=== PATIENT | female | born 1955 | race Caucasian/White ===

== ENCOUNTER → 2017-10-05 11:04 | Outpatient (CLI) | payer BC, SELFPAY ==
--- NOTE | 2017-10-05 11:08 | VDLE_ITS ---
Reason For Study: LEG PAIN RIGHT LEFT GSV is normal. CFV is compressible, spontaneous, phasic, CFV is compressible, spontaneous, phasic, competent, and demonstrates normal competent and demonstrates normal augmentation. augmentation. FV is compressible, spontaneous, phasic, competent and demonstrates normal augmentation. POP V is compressible, spontaneous, phasic, competent and demonstrates normal augmentation. T/P Trunk is compressible. PTV is compressible. RT PerV is compressible. Hypoechoic structure noted rt medial pop space extending to posterior prox calf. Measures 2.5 x 3.2 cm in transverse view. Non-vascular. Procedure Exam performed in department. A preliminary report was called and/or faxed to Dr. Castillo. Interpretation Summary Deep veins of the right lower extremity are patent and compressible segmentally. There is no evidence of right lower extremity deep vein thrombosis. Valvular competence appears intact within the proximal deep venous system on the right . The right greater saphenous vein appears patent and compressible segmentally. A non-vascular, hypoechoic structure is noted in the right medial popliteal space, extending to the proximal calf, and measuring 2.5 cm x 3.2 cm. This probably represents a popliteal cyst. Clinical correlation is advised. Ordering Physician: Yara Castillo Referring Physician: Yara Castillo Performed By: Tyra Avalos RVT
== END ==
PROVIDERS: Family Provider Internal Medicine; PCP Internal Medicine; Visit Provider Internal Medicine
DX: M79.661 Pain in right lower leg (principal)
CPT/HCPCS: 93971

== ENCOUNTER → 2017-11-20 15:42 | Outpatient (CLI) | payer BC, SELFPAY ==
--- NOTE | 2017-11-19 09:00 | CYST_PTH ---
PATIENT: SEKOU DE LA GARZA LOC: [facility] U#:[id number] AGE/SX: 69/F ROOM: RE11/20/[address]: Florian Casillas MD : 1955 BED: DIS: SPEC #: [id number] RECD: 11/20/17 15:26 STATUS: HAMIDA DOMINIK #: [id number] SUSAN: 11/19/17 09:[address]: Florian Casillas DEPT: SURGICAL PATHOLOGY RECD BY: Jacob Jack ENTERED: 11/23/17 07:49 SP TYPE: Cyst OTHR DR: Dr. Yara Castillo MD [facility] Tissues: CYST Procedures: Surgery Specimen Level III HEADER OPERATION: Right knee arthroscopy with partial medial meniscectomy and open excision popliteal cyst PRE-OP DIAGNOSIS: Right knee posterior horn tear, medial meniscus, popliteal cyst TISSUE SUBMITTED: Cyst right knee MICROSCOPIC DIAGNOSIS Cyst, right knee: Benign cyst consistent with Salc[place] cyst with reactive changes. SJ:elia 11/24/17 MICROSCOPIC DESCRIPTION Slides are reviewed. GROSS DESCRIPTION Received is one container labeled with the patient's name and not further designated. The specimen consists of a previously opened cyst with attached adipose tissue measuring 6 x 4 x 2.5 cm. The cyst wall is smooth and measures up to 0.5 cm in thickness. Indirect Sales Exec sections are submitted in two cassettes. / GARRISON:elia 11/23/17 TC:5 CPT: 10175
== END ==
PROVIDERS: Visit Provider Orthopaedic Surgery
DX: L72.9 Follicular cyst of the skin and subcutaneous tissue, unspecified (principal)
CPT/HCPCS: 88304

== ENCOUNTER 2018-07-08 18:30 | Outpatient (RCR) | payer BC, SELFPAY ==
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
--- NOTE | 2018-07-08 19:01 | HP.PTDCSUM ---
HP - PT D/C Summary It has been my pleasure to treat SEKOU DE LA GARZA under orders from Yara Castillo MD, for the diagnosis of R flank pain for a total of 6 visit(s). Discharge Date: 07/08/18 Please see the following information for a summary of their discharge status. - Subjective Subjective: Doing better, no burning. Still achy 2/10 - Pain R flank/LBP Pain Intensity (Out of 10): 2 - Overall Improvement % Improvement: 50 - Objective Objective/Function: dECREAESING TENDERNESS T/S - Goals Goal 1:: abolish burning pain in R T/S Goal Progress: Progressing Goal 2:: I approp strethces for LB and strengthening for core adn R LE Goal Progress: Goal Met Goal 3:: Pt feel 75% improved in overall conditiona dn sleep without waking at night. Goal Progress: Progressing - Plan Plan: Pt out of town for 3 months adn will continue on her own. instruct given. - D/C Information Discharge Comments: Pt leaving town for 3 months and will continue with ex/[facility] as able I. If there are questions or concerns regarding this patient's physical therapy, please feel free to call me at [phone]. Thank you for the referral of this patient. Sincerely, Michele Barajas, DPT, OCS, CSCS
--- OUTSIDE RECORDS SUMMARY | 2018-08-29 16:27 | XMS RPT_ITS | Continuity of Care Document ---
:1955 Author Organization [facility] Address [address] [place] [address] 2 [place] [address] Phone Care Team Providers Name Role Phone Yara Shi MD Unavailable Sonja EVANS , Florian Quintero Unavailable JORDAN Webster Unavailable Unavailable Unavailable Unavailable Problems Name Dates Details Annual Medicare Physical WITH abnormal findings (Renamed from Encounter for general adult medical examination with abnormal findings) (Z00.01, V70.0) Comments: 38-30-20zeviw. colonoscopy 1-16 due every 5 years with father mammo/BD 02-05-16 likes to do every other year. TAHBSO talk about shingles but has outbreaks so uses prn acyclovir. told consider new inacti vated shingles vaccine. gets derm screening [place] with melanoma history. Status: Active Arthralgia (M25.50, 719.40) Comments: since 16 had fever and mainly large joints not fingers. Status: Active BMI 26.0-26.9,adult (Z68.26, V85.22) Status: Active BMI 28.0-28.9,adult (Z68.28, V85.24) Status: Active BMI 31.0-31.9,adult (Z68.31, V85.31) Status: Active Chest pain, atypical (R07.89, 786.59) Status: Active Current nonsmoker (Renamed from Current non-smoker) (Z78.9, V49.89) Status: Active Family history of malignant neoplasm of gastrointestinal tract (Z80.0, V16.0) Comments: colon cancer Status: Active Fatigue (R53.83, 780.79) Status: Active Frequent infections (Z86.19, V12.00) Status: Active GERD (gastroesophageal reflux disease) (K21.9, 530.81) Comments: EGD 2003, 5- 12, not have anymore with weight loss. take nexium stable. tried zantac and not work as well. Status: Active Hematuria (R31.9, 599.70) Status: Active Herpes zoster without complication (B02.9, 053.9) Comments: right buttocks ? also why pain burning in right flank Status: Active History of melanoma (Z85.820, V10.82) Comments: see derm in [facility]. must get mammo with relation ship Status: Active History of shingles (Z86.19, V12.09) Comments: she gets recureent shingles right lower left lumbar area. 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 really want to see by asking endocrine do we need to keep her suppressed. she is noticing change in hair and nail Status: Active Low back pain without sciatica, unspecified back pain laterality (724.2) Comments: right flank. posistional, consider neuropathic. use aleve2 bid, heat help continue back exercises, massotherapy. not better xray and consider Pt Status: Active Muscle spasm (M62.838, 728.85) Comments: seeing PT and chiropactor. PT rightnow wokringonthis Status: Active Need for hepatitis B screening test (Z11.59, V73.89) Status: Active Night sweat (R61, 780.8) Comments: takig 0.3 mg every night help this Status: Active Obesity (E66.9, 278.00) Comments: after thryiod surgery gain. gaol 155 lost some with stress. need to add back exercise. Status: Active Osteoarthritis of both knees, unspecified osteoarthritis type (M17.0, 715.96) Comments: has had Euflexxa in the past and helped, did steroid injection 01-09-17 and helped but not take the pain away entirely, do both knees. Status: Active Osteoarthritis of knees, bilateral (M17.0, 715.96) Comments: use with turmeric and help has side effects to glucosamine Status: Active Pain of right calf (M79.661, 729.5) Comments: with travel check doppler no DVT. will treat as OA and salcido's cyst and if not better the may have to repeat doppler in case calf and assure not propagate. Status: Active Postmenopausal (Renamed from Postmenopausal status) (Z78.0, V49.81) Status: Active Postmenopausal state (Z78.0, V49.81) Comments: sometimes will do premarin few times a week only. Status: Active Pregnancies () Comments: 0 Status: Active Sacral pain (M53.3, 724.6) Comments: ? sacral bruise vs pilonidal cyst awaiting xray Status: Active Stress reaction (F43.0, 308.9) Comments: doing better with new board and new college educated assistant2 [employer], [facility] signed to take over hospital in [facility]. Status: Active Unspecified osteoarthritis, unspecified site (M19.90, 715.90) Comments: left knee will get MRI in [facility] consider arthoscopy cleaning. Status: Active Vitamin D deficiency, unspecified (E55.9, 268.9) Comments: good Status: Active Medications Name Dates Details Ambien 5 MG Oral Tablet 1 (one) Tablet at night insomnia prn for 0 days Quantity: 30 {Tablet} Refills: 2 Ordered:21-Dec-2017 Jonathan EVANS, Yara Barajas MD Start : 21-Dec-2017 Active Comments:[id number] [place] [facility] [place] [facility] Active NexIUM 40 MG Oral Capsule Delayed Release 1 (one) Capsule in am for 0 days Quantity: 30 {Capsule} Refills: 6 Ordered:03-Feb-2017 Jonathan EVANS, Yara Barajas MD Start : 03-Feb-2017 Active Premarin 0.625 MG Oral Tablet 1 (one) Tablet qd for 0 days Quantity: 60 {Tablet} Refills: 3 Ordered:15-Jun-2018 Yara Shi MD, MD, Dana M Start : 15-Jun-2018 Active Dispense as Written Comments:VONSixty Synthroid 150 MCG Oral Tablet 1 (one) Tablet qd for 0 days Quantity: 102 {Tablet} Refills: 3 Ordered:15-Jun-2018 Yara Shi MD, MD, Dana M Start : 15-Jun-2018 Active Dispense as Written Comments:VON traumeric Active vitamin D3, 1 qd Active Zanaflex 4 MG Oral Capsule 1 (one) Capsule every 8 hours prn for 0 days Quantity: 30 {Capsule} Refills: 0 Ordered:15-Jun-2018 Yara Shi MD, MD, Dana M Start : 15-Jun-2018 Active AMOXICILLIN, 500MG (Oral Capsule) 1 (one) Capsule tid for 7 days Quantity: 21 {Capsule} Refills: 0 Ordered:04-Apr-2015 Serenity Ross CNP Start : 04-Apr-2015 End : 11-Apr-2015 Inactive ATIVAN, 0.5MG (Oral Tablet) Tablet TID/PRN for 0 days Quantity: 30 {Tablet} Refills: 0 Ordered:20-Jun-2010 JORDAN Webster Start : 26-Feb-2009 End : 20-Jun-2010 Inactive AUGMENTIN, 875-125MG (Oral Tablet) 1 Tablet bid for 14 days Quantity: 28 {Tablet} Refills: 0 Ordered:27-May-2011 Serenity Ross CNP Start : 27-May-2011 End : 10-Jun-2011 Inactive CALCIUM 500/VITAMIN D, 187-068PU-HSBN (Oral Tablet) 1 (one) Tablet daily for 30 days Quantity: 30 {Tablet} Refills: 0 Ordered:04-Jul-2015 Serenity Ross CNP Start : 04-Apr-2015 End : 04-May-2015 Inactive DOXYCYCLINE HYCLATE, 100MG (Oral Capsule) 1 Capsule bid for 21 days Quantity: 42 {Capsule} Refills: 0 Ordered:14-Jan-2013 Yara Shi MD, MD, Dana M Start : 14-Jan-2013 End : 04-Feb-2013 Inactive FAMCICLOVIR, 500MG (Oral Tablet) 1 Tablet tid for 7 days when have rash for 0 days Quantity: 21 {Tablet} Refills: 2 Ordered:14-Jan-2013 JORDAN Webster Start : 07-Jan-2013 End : 14-Jan-2013 Inactive MULTIVITAMIN ADULTS 50+ (Oral Tablet) 1 (one) Tablet daily for 30 days Quantity: 30 {Tablet} Refills: 0 Ordered:04-Jul-2015 Serenity Ross CNP Start : 04-Apr-2015 End : 04-May-2015 Inactive RX ESSENTIALS HEARTBURN/ACID R (Oral Tablet) 1 qd for 0 days Refills: 0 Ordered:26-Feb-2009 JORDAN Webster End : 26-Feb-2009 Inactive Tylenol with Codeine #3 300-30 MG Oral Tablet 1 (one) Tablet every 8 hours prn for 0 days Quantity: 20 {Tablet} Refills: 0 Ordered:08-Jul-2016 JORDAN Webster Start : 27-May-2016 End : 08-Jul-2016 Inactive Comments:twenty Valtrex 1 GM Oral Tablet 1 (one) Tablet tid for 0 days Quantity: 21 {Tablet} Refills: 0 Ordered:08-Jul-2016 JORDAN Webster Start : 27-May-2016 End : 08-Jul-2016 Inactive VALTREX, 500MG (Oral Tablet) 1 Tablet 2 bid for 3 days for 3 days Refills: 0 Ordered:20-Jun-2010 Jonathan EVANS, Yara Blackmon MD, Yara Arana Start : 20-Jun-2010 End : 23-Jun-2010 Inactive ZANTAC 150 MAXIMUM STRENGTH, 150MG (Oral Tablet) (150 MG) Inactive ZANTAC 75, 75MG (Oral Tablet) 1 qd for 0 days Refills: 0 Ordered:02-Mar-2012 Shanna Welsh LPN End : 02-Mar-2012 Inactive ZANTAC 75, 75MG (Oral Tablet) 1 bid (75 MG) Inactive Zithromax Z-River 250 MG Oral Tablet uad Tablet qd until gone for 0 days Quantity: 1 {Package} Refills: 0 Ordered:15-Jun-2018 JORDAN Webster Start : 23-Oct-2017 End : 15-Jun-2018 Inactive ERGOCALCIFEROL, 56373OJQF (Oral Capsule) 1 Capsule weekly for 0 days Quantity: 24 {Capsule} Refills: 3 Ordered:04-Apr-2015 Elvira Epperson LPN Start : 25-Dec-2014 End : 04-Apr-2015 Discontinued ESTRATEST H.S., 0.625-1.25MG (Oral Tablet) Tablet thu and thursday for 0 days Quantity: 30 {Tablet} Refills: 3 Ordered:02-Jul-2009 Mast Fadia BLACK Start : 02-Jul-2009 End : 02-Jul-2009 Discontinued FLEXERIL, 10MG (Oral Tablet) 1 Tablet tid prn for 0 days Quantity: 20 {Tablet} Refills: 0 Ordered:20-Jun-2010 Yara Shi MD, MD, Dana M Start : 20-Jun-2010 End : 05-Jul-2012 Discontinued LIDODERM, 5% (External Patch) 1 Patch 12 hours on adnd 12 hours off for 0 days Quantity: 30 {Patch} Refills: 1 Ordered:02-Mar-2012 Yara Shi MD, MD, Dana M Start : 02-Mar-2012 End : 05-Jul-2012 Discontinued PROVENTIL HFA, 108 (90 Base)MCG/ACT (Inhalation Aerosol Solution) 2 (two) Aerosol Soln tid for 0 days Quantity: 1 {Aerosol_Soln} Refills: 0 Ordered:27-May-2011 Yara Shi MD, MD, Dana M Start : 27-May-2011 End : 05-Jul-2012 Discontinued TRIPLE FLEX, [id number] (Oral Tablet) 2 qd for 0 days Refills: 0 Ordered:05-Jul-2012 Yara Shi MD, MD, Dana M End : 05-Jul-2012 Discontinued Allergies and Adverse Reactions Name Dates Details Betadine *ANTISEPTICS & DISINFECTANTS* (Allergy) Status: Active nexium aches (Allergy) Status: Inactive Past Medical History Name Dates Details Abnormal finding of blood chemistry, unspecified (R79.9, 790.6) Comments: little slight 36 on 32 alt. ? ibu Status: Resolved as of 18-May-2017 Acute bronchitis, bacterial (J20.8, 466.0) Comments: better with zpak, steriods and inhalers. still cough and on tail end. will callin week if not all way better Status: Inactive as of 08-Jul-2016 Acute pharyngitis (J02.9, 462) Status: Inactive as of 14-Jan-2013 ACUTE PHARYNGITIS (462.) (462) Status: Inactive as of 14-Jan-2013 Adenoma (D36.9, 229.9) Comments: hercule cell with removal of adenoma and thyroid Status: Inactive as of 03-Mar-2016 Salcido's cyst, right (M71.21, 727.51) Comments: removed Status: Resolved as of 15-Jun-2018 Breast nodule (N63.0, 793.89) Comments: with history of melanoma and on ERT at risk for breast ca.us and mammo good and recheck nhjb3sbdeov normal. Status: Inactive as of 23-Jun-2017 Bronchitis (J40, 490) Status: Resolved as of 18-May-2017 Chest pain at rest (R07.9, 786.50) Status: Inactive as of 08-Jul-2016 Coccygeal pain, chronic (M53.3, 724.79) Comments: better than was with PT sit alot with work and meetings. Status: Resolved as of 18-May-2017 Cough (R05, 786.2) Status: Inactive as of 14-Jan-2013 Dysfunctional grieving (F43.21, 309.0) Comments: lost 4 significant people in 24 months. sleep okay and able to do ADLs Status: Inactive as of 14-Jan-2013 Encounter for screening mammogram for breast cancer (Renamed from Encounter for screening mammogram for malignant neoplasm of breast) (Z12.31, V76.12) Status: Inactive as of 03-Mar-2016 Family history of other endocrine and metabolic diseases (V18.1) Comments: thyroid cancer Status: Inactive as of 03-Mar-2016 Febrile illness, acute (R50.9, 780.60) Comments: N/V and joint pain. ?Chikungunya ? GE virus. no rash like yellow fever getting better check serology. Status: Inactive as of 25-Dec-2014 Flank pain (R10.9, 789.09) Comments: urine good not think stones. she does not have PE signs and symptoms no pleuricy. ? muscular with cough not hear pneumonia. Status: Resolved as of 18-May-2017 Headache disorder (R51, 784.0) Comments: see chiropctor help this on right side. Status: Resolved as of 18-May-2017 HERPES SIMPLEX, UNCOMPLICATED (B00.9, 054.9) Comments: get in leg and use acyclivor prn Status: Inactive as of 03-Mar-2016 Herpes zoster with other nervous system complications (B02.29, 053.19) Comments: has continue pain with stress comes every 6 months. use accyclovir help ask if have once take less often Status: Inactive as of 14-Jan-2013 Impaired fasting glucose (R73.01, 790.21) Status: Inactive as of 02-Dec-2013 Lightheaded (R42, 780.4) Status: Resolved as of 18-May-2017 Muscle ache (729.1) Status: Inactive as of 02-Dec-2013 Need for prophylactic vaccination and inoculation against influenza (Z23, V04.81) Status: Inactive as of 14-Jan-2013 Pain in joint involving ankle and foot, unspecified laterality (M25.579, 719.47) Comments: see a roster clerk as friend, will get MRI as recommend and PT not better or abn mri to suppan Status: Inactive as of 14-Jan-2013 Pain in unspecified hip (M25.559, 719.45) Comments: think bursa to PT not better xray, nsaids help so use as need Status: Inactive as of 14-Jan-2013 Sinusitis, acute (J01.90, 461.9) Comments: Mild Status: Inactive as of 14-Jan-2013 Sore throat (J02.9, 462) Comments: ulcer like virus Status: Resolved as of 18-May-2017 Syncope (R55, 780.2) Comments: pre Status: Resolved as of 18-May-2017 Unspecified Diagnosis Status: Inactive as of 25-Dec-2015 Well woman exam (Z01.419, V72.31) Comments: scope 1-16 due 5 with father. due mammo. told pt about shingle vaccine gets small bouts and not want to get. Status: Inactive as of 01-Feb-2016 Wheezing (R06.2, 786.07) Status: Inactive as of 14-Jan-2013 Procedures Procedure Dates Details appendectomy 2002 Completed cholecystectomy 1982 Completed complete thyriodectomy 2004 Completed Hysterectomy; Abdominal Completed Comments: 2002 DUB. RSO because cyst. then 6months later LSO cyst. melanoma removal leg 2004 Completed Date Value Details 05-Oct-2017 Venous Duplex Lower Extremity Result: Comments: See Note; NOTES: [facility] [address] [place] [address] Venous Duplex US, Unilateral 10/05/17 1108 MR#: [id number] Acct: [id number] Name: SEKOU BROOKS Rep #: [id number] : 1955 62 From: Peewee Davies MD Attending Dr: Yara Shi MD Status: REG CLI Ordering Dr: Yara Shi MD Date: 10/05/17 Location: [facility] Sex: F C Admitted: Reason For Study: LEG PAIN RIGHT LEFT GSV is normal. CFV is compressible, spontaneous, phasic, CFV is compressible, spontaneous, phasic, competent, and demonstrates normal competent and demonstrate s normal augmentation. augmentation. FV is compressible, spontaneous, phasic, competent and demonstrates normal augmentation. POP V is compressible, spontaneous, phasic, competent and demonstrates shantelle l augmentation. T/P Trunk is compressible. PTV is compressible. RT PerV is compressible. Hypoechoic structure noted rt medial pop space extending to posterior prox calf. Measures 2.5 x 3.2 cm in transve rse view. Non-vascular. Procedure Exam performed in department. A preliminary report was called and/or faxed to Dr. Shi. Interpretation Summary Deep veins of the right lower extremity are patent an d compressible segmentally. There is no evidence of right lower extremity deep vein thrombosis. Valvular competence appears intact within the proximal deep venous system on the right . The right greater saphenous vein appears patent and compressible segmentally. A non-vascular, hypoechoic structure is noted in the right medial popliteal space, extending to the proximal calf, and measuring 2.5 cm x 3.2 cm. This probably represents a popliteal cyst. Clinical correlation is advised. Ordering Physici an: Yara Shi Referring Physician: Yara Shi Performed By: Tyra Avalos RVT 10/05/172058 Date Peewee Davies MD CC: Yara Shi MD Date Dictated: 10/05/178 Date Transcribed: 10/05/172058 Cyber Special Agent: Signed 22-May-2017 Breast Limited Unilateral Result: Comments: See Note; NOTES: [facility] Imaging Services [address] [place] [address] Breast Limited Unilateral MR#: [id number] Acct: [id number] Name: SEKOU DE LA GARZA Rep #: [id number] : 1955 F 61 From: Dk Perla MD PCP: Yara Shi MD Status: REG CLI Study: Breast Limited Unilateral Date of Exam: 05/22/17 Exam# [id number] Ordering Dr: Yara Shi MD [facility] BRE[facility] - LEFT REASON FOR EXAM: Female, 61 years old. Palpable lump left breast. TECHNIQUE: Axial and longitudinal images of the LEFT breast were performed with a high resolution ultras ound transducer. COMPARISON: Comparison is made with prior mammogram done earlier today. FINDINGS: LEFT Breast: The upper outer quadrant was examined by ultrasound . No solid or cystic mass lesion is seen. There is homogeneous fibroglandular tissue. US/Breast Limited Unilateral IMPRESSION: Unremarkable sonog raphic examination of the breast. ASSESSMENT CATEGORY: BIRADS Category 1: Negative. A letter regarding these results will be sent to the patient by the facility with in 30 days. Electronically Signed: Dk Perla MD at 15:11 EST Tel [phone], Service support , CC: Yara Shi MD Cyber Special Agent: Signed 22-May-2017 DIAG MAMM W/CAD, BILAT Result: Comments: See Note; NOTES: [facility] Imaging Services [address] [place] [address] DIAG MAMM W/CAD, BILAT MR#: [id number] Acct: [id number] Name: SEKOU DE LA GARZA Rep #: [id number] : 1955 F 61 From: Dk Perla MD PCP: Yara Shi MD Status: REG CLI Study: DIAG MAMM W/CAD, BILAT Date of Exam: 05/22/17 Exam# [id number] Ordering Dr: Yara Shi MD MAMMOGRA PHY - BILATERAL SCREENING REASON FOR EXAM: Female, 61 years old. Routine annual screening examination. PERTINENT HISTORY: Aunt with breast cancer. Palpable abnormality in the upper outer quadrant of t he left breast. TECHNIQUE: Digital bilateral breast svetlana (3D mammographic acquisition) in the CC and MLO projections. 2-D mediolateral oblique (MLO) and craniocaudad (CC) views of both breasts were obt ained. CAD: Full Field Digital Mammography with Computer Added Detection was performed. COMPARISON: Comparison is made with prior study dated February 05, 2016 and January 07, 2013. FINDINGS: Breast Composition: There are scattered areas of fibroglandular density. There are no dominant masses or suspicious calcifications. Stable benign-appearing bilateral axillary ly mph nodes. No other significant abnormalities are identified. There has been no significant change since the prior study. HPBI/DIAG MAMM W/CAD, BILAT IMPRESSION: Stable bilateral screening mammogram. With the patient's history of a palpable abnormality in the left breast, correlation with ultrasound is recommended. ASSESSMENT CATEGORY: BIRADS Category 0: Incomplete. Need additional imaging evaluation. A letter regarding these results will be sent to the patient by the facility within 30 days. Approximate ly 10% of breast cancers are not detected by mammography. A normal mammogram should not delay biopsy of a clinically suspicious abnormality. [id number] Electronically Signed: Dk Perla MD 07/23 at 15:12 EST Tel [phone], Service support , CC: Yara Shi MD Cyber Special Agent: Signed 09-Jan-2017 Knee 4 or More Views Result: Comments: See Note; NOTES: [facility] Imaging Services [address] [place] [address] Knee 4 or More Views MR#: [id number] Acct: [id number] Name: SEKOU DE LA GARZA Rep #: [id number] : 1955 F 61 From: Kenneth Sanchez DO PCP: Yara Shi MD Status: REG CLI Study: Knee 4 or More Views Date of Exam: 01/09/17 Exam# [id number] Ordering Dr: Yara Shi MD STUDY: X-RAY - RI T KNEE REASON FOR EXAM: Female, 61 years old. Medial knee pain, no trauma TECHNIQUE: 4 view(s) of the knee. COMPARISON: None. FINDINGS: There is demineralizatio n of the visualized distal femur. There is demineralization of the tibia and fibula. Normal proximal tibiofibular articulation. There is mild degenerative arthrosis of the medial femorotibial compartme nt. There is mild degenerative arthrosis of the lateral femorotibial compartment. There is mild degenerative arthrosis of the patellofemoral articulation. The soft tissue structures are unremarkable. _ RAD/Knee 4 or More Views IMPRESSION: Mild tricompartmental arthrosis with otherwise no evidence of acute osseous process. Electronically Signed: Kenneth Sanchez DO at 11:15 EDT Tel [phone], Service support , CC: Yara Shi MD Cyber Special Agent: Signed 09-Jan-2017 Knee 4 or More Views Result: Comments: See Note; NOTES: [facility] Imaging Services [address] [place] [address] Knee 4 or More Views MR#: [id number] Acct: [id number] Name: SEKOU DE LA GARZA Rep #: [id number] : 1955 F 61 From: Kenneth Sanchez DO PCP: Yara Shi MD Status: REG CLI Study: Knee 4 or More Views Date of Exam: 01/09/17 Exam# [id number] Ordering Dr: Yara Shi MD STUDY: X-RAY - LE FT KNEE REASON FOR EXAM: Female, 61 years old. Medial knee pain, no trauma. TECHNIQUE: 4 view(s) of the knee. COMPARISON: None. FINDINGS: Normal visualized distal femur. Normal visualized proximal tibia and fibula. Normal proximal tibiofibular articulation. There is moderate degenerative arthrosis of the medial femorotibial compartment with moderate joint space narrowing. There is mild degenerative arthrosis of the lateral femorotibial compartment. There is mild degenerative arthrosis of the patellofemoral articulation. The soft tissue structures are unremar kable. RAD/Knee 4 or More Views IMPRESSION: Tricompartmental arthrosis as above with otherwise no evidence of acute osseous process. Electronica lly Signed: Kenneth Sanchez at 11:17 EDT Tel [phone], Service support , CC: Yara Shi MD Cyber Special Agent: Signed 21-Nov-2016 Brain W/WO Contrast Result: Comments: See Note; NOTES: [facility] Imaging Services [address] [place] [address] Verdana 4d Brain W/WO Contrast MR#: [id number] Acct: [id number] Name: SEKOU DE LA GARZA Rep #: [id number] : 1955 F 61 From: Stanford Tomlinson MD PCP: Yara Shi MD Status: REG CLI Study: Brain W/WO Contrast Date of Exam: 11/21/16 Exam# [id number] Ordering Dr: Yara Shi MD STUDY: M RI BRAIN WITH AND WITHOUT CONTRAST REASON FOR EXAM: Female, 61 years old. Right head and face pain. Numbness of hands and vertigo with loss of balance x12 days TECHNIQUE: Standardized multiplanar fat and water weighted pulse sequences were obtained. 8 ml of Gadavist contrast material was administered intravenously for the contrast portion of the examination. COMPARISON: None. FINDINGS: There is mild cerebral atrophy with widening of the extra- axial spaces and ventricular dilatation. Normal white matter tracts of the supratentorial brain. There is no evidence f or recent intracranial ischemia or other cause of cytotoxic edema on diffusion weighted imaging (DWI). Normal bilateral basal ganglia. Normal thalami. There is no extra-axial fluid accumulation. Shantelle l flow voids within the major intracranial circulation suggesting patency by spin echo criteria. Normal venous enhancement. There is no enhancing intra-axial or extra-axial abnormality. There is an ante rior interhemispheric lipoma versus ossification of the falx. Normal sella turcica, pituitary gland, infundibular stalk, optic chiasm and hypothalamus. Normal tectal plate and pineal gland. Normal mid brain, alicia and medulla. Normal cerebellum. Normal basal cisterns. Normal bilateral temporal bones. Normal bilateral internal auditory canals. No demonstrated orbital abnormality, within the constraint s of a routine brain study. Normal visualized paranasal sinuses. Normal calvarium and skull base. Normal visualized soft tissue structures. Normal visualized upper cervical spine. MRI/Brain W/WO Contrast IMPRESSION: No acute disease Electronically Signed: Stanford Tomlinson MD at 16:39 EDT , Service support , CC: Yara Shi MD Cyber Special Agent: Signed 06-Jun-2016 Chest PA and Lateral Result: Comments: See Note; NOTES: [facility] Imaging Services [address] [place] [address] [place] 4d Chest PA and Lateral MR#: [id number] Acct: [id number] Name: SEKOU DE LA GARZA p #: [id number] : 1955 F 60 From: Jeff Joseph MD PCP: Yara Shi MD Status: REG CLI Study: Chest PA and Lateral Date of Exam: 06/06/16 Exam# [id number] Ordering Dr: Yara Shi MD STUDY: X-RAY CHEST REASON FOR EXAM: Female, 60 years old. Cough for 3 weeks, shingles for one week, pressure right upper chest. TECHNIQUE: PA and lateral views at 3:08 PM. COMPARISON: None. FINDINGS: The lungs are clear and expanded. No pneumothorax. There is no demonstrated pleural abnormality. Normal size heart. Normal mediastinum and alison. Normal visualized pulmon vignesh arteries. Normal visualized aortic arch and descending thoracic aorta. Mild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 /min Comments: Pattern: Regular Respiration Rate 18 /min Comments: Pattern: Unlabored BP Systolic 122 mm[Hg] Comments: Patient Position: Sitting; Cuff Location: Left Arm; Cuff Size: Standard BP Diastolic 78 mm[Hg] Comments: Patient Position: Sitting; Cuff Location: Left Arm; Cuff Size: Standard Weight 188 lb Height 68 in Body Mass Index Calculated 28.59 kg/m2 Body Surface Area Calculated 1.99 m2 :54 Temperature 98.4 f Comments: Method: Oral Pulse 92 /min Comments: Pattern: Regular O2 SAT 98 % Comments: Room air BP Systolic 120 mm[Hg] Comments: Patient Position: Sitting; Cuff Location: Left Arm; Cuff Size: Standard BP Diastolic 72 mm[Hg] Comments: Patient Position: Sitting; Cuff Location: Left Arm; Cuff Size: Standard Weight 191 lb Height 68 in Body Mass Index Calculated 29.04 kg/m2 Body Surface Area Calculated 2 m2 :43 Temperature 98.2 f Comments: Method: Oral Pulse 78 /min Comments: Pattern: Regular Respiration Rate 18 /min Comments: Pattern: Unlabored BP Systolic 124 mm[Hg] Comments: Patient Position: Sitting; Cuff Location: Left Arm; Cuff Size: Standard BP Diastolic 82 mm[Hg] Comments: Patient Position: Sitting; Cuff Location: Left Arm; Cuff Size: Standard Weight 194 lb Height 68 in Body Mass Index Calculated 29.5 kg/m2 Body Surface Area Calculated 2.02 m2 :23 Temperature 98 f Comments: Method: Oral Pulse 90 /min Comments: Pattern: Regular O2 SAT 98 % Comments: Room air BP Systolic 120 mm[Hg] Comments: Patient Position: Sitting; Cuff Location: Left Arm; Cuff Size: Standard BP Diastolic 78 mm[Hg] Comments: Patient Position: Sitting; Cuff Location: Left Arm; Cuff Size: Standard Weight 198.4375 lb Height 68 in Body Mass Index Calculated 30.17 kg/m2 Body Surface Area Calculated 2.04 m2 :50 Temperature 98.3 f Comments: Method: Oral Pulse 64 /min Comments: Pattern: Regular Respiration Rate 16 /min Comments: Pattern: Unlabored BP Systolic 126 mm[Hg] Comments: Patient Position: Sitting; Cuff Location: Left Arm; Cuff Size: Standard BP Diastolic 78 mm[Hg] Comments: Patient Position: Sitting; Cuff Location: Left Arm; Cuff Size: Standard Weight 203.5 lb Height 68 in Body Mass Index Calculated 30.94 kg/m2 Body Surface Area Calculated 2.06 m2 90-Fju-563941:29 Temperature 97.7 f Comments: Method: Oral Pulse 80 /min Comments: Pattern: Regular Respiration Rate 16 /min Comments: Pattern: Unlabored BP Systolic 130 mm[Hg] Comments: Patient Position: Sitting; Cuff Location: Left Arm; Cuff Size: Standard BP Diastolic 70 mm[Hg] Comments: Patient Position: Sitting; Cuff Location: Left Arm; Cuff Size: Standard Weight 198 lb Height 68 in Body Mass Index Calculated 30.11 kg/m2 Body Surface Area Calculated 2.04 m2 :18 Temperature 98.1 f Comments: Method: Oral Pulse 80 /min Comments: Pattern: Regular O2 SAT 97 % Comments: Room air BP Systolic 128 mm[Hg] Comments: Patient Position: Sitting; Cuff Location: Left Arm; Cuff Size: Standard BP Diastolic 74 mm[Hg] Comments: Patient Position: Sitting; Cuff Location: Left Arm; Cuff Size: Standard Weight 198 lb :17 Temperature 97.6 f Comments: Method: Oral Pulse 76 /min Comments: Pattern: Regular Respiration Rate 18 /min Comments: Pattern: Unlabored BP Systolic 124 mm[Hg] Comments: Patient Position: Sitting; Cuff Location: Left Arm; Cuff Size: Standard BP Diastolic 80 mm[Hg] Comments: Patient Position: Sitting; Cuff Location: Left Arm; Cuff Size: Standard Weight 198 lb :14 Pulse 80 /min Comments: Pattern: Regular Respiration Rate 16 /min Comments: Pattern: Unlabored BP Systolic 118 mm[Hg] Comments: Patient Position: Sitting; Cuff Location: Left Arm; Cuff Size: Large BP Diastolic 78 mm[Hg] Comments: Patient Position: Sitting; Cuff Location: Left Arm; Cuff Size: Large Weight 194 lb Height 0 in Head Circumference 0.00 cm :04 Temperature 97.8 f Comments: Method: Oral Pulse 70 /min Comments: Pattern: Regular Respiration Rate 16 /min Comments: Pattern: Unlabored BP Systolic 136 mm[Hg] Comments: Patient Position: Sitting; Cuff Location: Left Arm; Cuff Size: Standard BP Diastolic 84 mm[Hg] Comments: Patient Position: Sitting; Cuff Location: Left Arm; Cuff Size: Standard Weight 191 lb Height 0 in Head Circumference 0.00 cm :36 Temperature 97.6 f Comments: Method: Oral Pulse 78 /min Comments: Pattern: Regular Respiration Rate 20 /min Comments: Pattern: Unlabored BP Systolic 126 mm[Hg] Comments: Patient Position: Sitting; Cuff Location: Left Arm; Cuff Size: Standard BP Diastolic 80 mm[Hg] Comments: Patient Position: Sitting; Cuff Location: Left Arm; Cuff Size: Standard Weight 192 lb Height 0 in Head Circumference 0.00 cm Results Date Description Value Details 4-Hcp-313554:53 Urinalysis, Office (54187) UA - NITRITE Negative (Normal) URINE UROBILINGN ANDRZEJ TIMED 2 mg/dL (Normal) UA - PROTEIN Negative mg/dL (Normal) UA - PH 6.0 (Normal) UA - BLOOD Negative (Normal) UA - SPECIFIC GRAVITY 1.030 (Abnormal) UA - KETONES Negative mg/dL (Normal) UA - BILIRUBIN Negative (Normal) UA - GLUCOSE Negative (Normal) 98-Iwr-67448:00 CBC WITH MANUAL DIFF (49860) Comments: PERFORMED BY: [facility] RehabilitationPsitll2500 [facility] [id number] Immature Grans (Abs) 0.0 {x10E3/uL} (Normal) Range: 0.0-0.1 Immature Granulocytes 0 % (Normal) Baso (Absolute) 0.0 {x10E3/uL} (Normal) Range: 0.0-0.2 Eos (Absolute) 0.2 {x10E3/uL} (Normal) Range: 0.0-0.4 Monocytes(Absolute) 0.4 {x10E3/uL} (Normal) Range: 0.1-0.9 Lymphs (Absolute) 1.4 {x10E3/uL} (Normal) Range: 0.7-3.1 Neutrophils (Absolute) 4.2 {x10E3/uL} (Normal) Range: 1.4-7.0 Basos 0 % (Normal) Eos 2 % (Normal) Monocytes 7 % (Normal) Lymphs 23 % (Normal) Neutrophils 68 % (Normal) Platelets 272 {x10E3/uL} (Normal) Range: 150-379 RDW 13.9 % (Normal) Range: 12.3-15.4 MCHC 32.9 g/dL (Normal) Range: 31.5-35.7 MCH 29.5 pg (Normal) Range: 26.6-33.0 MCV 90 fL (Normal) Range: 79-97 Hematocrit 43.2 % (Normal) Range: 34.0-46.6 Hemoglobin 14.2 g/dL (Normal) Range: 11.1-15.9 RBC 4.81 {x10E6/uL} (Normal) Range: 3.77-5.28 WBC 6.2 {x10E3/uL} (Normal) Range: 3.4-10.8 94-Vkk-25663:00 Metabolic Panel, Comprehensive Comments: PERFORMED BY: [facility] RehabilitationBleypk0315 [facility] [id number] (70534) ALT (SGPT) 28 [iU]/L (Normal) Range: 0-32 AST (SGOT) 25 [iU]/L (Normal) Range: 0-40 Alkaline Phosphatase 105 [iU]/L (Normal) Range: 39-117 Bilirubin, Total 0.5 mg/dL (Normal) Range: 0.0-1.2 A/G Ratio 1.6 (Normal) Range: 1.2-2.2 Globulin, Total 2.8 g/dL (Normal) Range: 1.5-4.5 Albumin 4.6 g/dL (Normal) Range: 3.6-4.8 Protein, Total 7.4 g/dL (Normal) Range: 6.0-8.5 Calcium 10.0 mg/dL (Normal) Range: 8.7-10.3 Carbon Dioxide, Total 23 mmol/L (Normal) Range: 20-29 Chloride 98 mmol/L (Normal) Range: 96-106 Potassium 4.4 mmol/L (Normal) Range: 3.5-5.2 Sodium 136 mmol/L (Normal) Range: 134-144 BUN/Creatinine Ratio 14 (Normal) Range: 12-28 eGFR If Africn Am 81 mL/min/1.73 (Normal) eGFR If NonAfricn Am 71 mL/min/1.73 (Normal) Creatinine 0.88 mg/dL (Normal) Range: 0.57-1.00 BUN 12 mg/dL (Normal) Range: 8-27 Glucose 99 mg/dL (Normal) Range: 65-99 72-Fui-80283:0 Cyst See Note (Normal) Comments: [facility] [address] [place], [address] 0 Comments: Patient: SEKOU DE LA GARZA : 1955 (62/F) Acct Num: [id number] Phys: Florian Casillas MD Unit Num: [id number] Loc: LABSPEC Specimen: [id number] Received: 11/20/171525 Spec Ty pe: Cyst TISSUES TISSUES: CYST GROSS DESCRIPTION Received is one container labeled with the patient's name and not further designated. The specimen consists of a previou sly opened cyst with attached adipose tissue measuring 6 x 4 x 2.5 cm. The cyst wall is smooth and measures up to 0.5 cm in thickness. Clinical Pharmacy Coordinator sections are submitted in two cassettes. / GARRISON:elia 11/23/17 TC:5 CPT: 44740 HEADER OPERATION: Right knee arthroscopy with partial medial meniscectomy and open excision popliteal cyst PRE-OP DIAGNOSIS: Right knee posterior horn tear, medial me niscus, popliteal cyst TISSUE SUBMITTED: Cyst right knee MICROSCOPIC DESCRIPTION Slides are reviewed. 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 GARRISON:elia 11/24/17 Signed Curry Serrano 11/24/17 <signature on file> 1-Jyu-974828:48 URINALYSIS (85844) Comments: PATIENT NOT FASTINGPERFORMED BY: CRIS [facility] Rzbnss5676 [facility] [id number] Microscopic Examination MICNIP (Normal) Comments: Microscopic not indicated and not performed. Nitrite, Urine Negative (Normal) Urobilinogen,Semi-Qn 0.2 mg/dL (Normal) Range: 0.2-1.0 Bilirubin Negative (Normal) Occult Blood Negative (Normal) Ketones Negative (Normal) Glucose Negative (Normal) Protein Negative (Normal) WBC Esterase Negative (Normal) Appearance Clear (Normal) Urine-Color Yellow (Normal) pH 7.5 (Normal) Range: 5.0-7.5 Specific [place] 1.020 (Normal) Range: 1.005-1.030 1-Zux-665620:48 CBC WITH MANUAL DIFF Comments: PATIENT NOT FASTINGPERFORMED BY: [facility] RehabilitationLomyvw8426 [facility] [id number] Information: CLIENT DRAW (41037) Immature Grans (Abs) 0.0 {x10E3/uL} (Normal) Range: 0.0-0.1 Immature Granulocytes 0 % (Normal) Baso (Absolute) 0.0 {x10E3/uL} (Normal) Range: 0.0-0.2 Eos (Absolute) 0.1 {x10E3/uL} (Normal) Range: 0.0-0.4 Monocytes(Absolute) 0.5 {x10E3/uL} (Normal) Range: 0.1-0.9 Lymphs (Absolute) 1.4 {x10E3/uL} (Normal) Range: 0.7-3.1 Neutrophils (Absolute) 3.8 {x10E3/uL} (Normal) Range: 1.4-7.0 Basos 0 % (Normal) Eos 1 % (Normal) Monocytes 9 % (Normal) Lymphs 25 % (Normal) Neutrophils 65 % (Normal) Platelets 278 {x10E3/uL} (Normal) Range: 150-379 RDW 13.3 % (Normal) Range: 12.3-15.4 MCHC 32.9 g/dL (Normal) Range: 31.5-35.7 MCH 29.5 pg (Normal) Range: 26.6-33.0 MCV 90 fL (Normal) Range: 79-97 Hematocrit 43.1 % (Normal) Range: 34.0-46.6 Hemoglobin 14.2 g/dL (Normal) Range: 11.1-15.9 Comments: Effective May 11, 2017 the reference interval for Hemoglobin MALES only will be changing to: Males 13-15 years: 12.6 - 17.7 Males >15 years: 13.0 - 17.7 RBC 4.81 {x10E6/uL} (Normal) Range: 3.77-5.28 WBC 5.8 {x10E3/uL} (Normal) Range: 3.4-10.8 :58 T4, FREE (THYROXINE) Comments: PATIENT NOT FASTINGPERFORMED BY: [facility]6370 [facility] [id number] Information: NURSE DRAW (51041) T4,Free(Direct) 1.78 ng/dL (Abnormal) Range: 0.82-1.77 :58 T3, FREE (TRIDOTHYRONINE) (85309) Comments: PATIENT NOT FASTINGPERFORMED BY: [address] [id number] Triiodothyronine,Free,Serum 2.6 pg/mL (Normal) Range: 2.0-4.4 :13 CBC W/Diff, Automated Comments: [facility] [address] [place], [address] Absolute Lymph 1.10 {X10_3/ul} (Normal) Range: 0.83-4.51 Absolute Neut 4.6 {X10_3/uL} (Normal) Range: 2.0-7.7 IM GRAN % 0.200 % (Normal) Range: 0.0-0.9 Comments: IG% - Immature Granulocytes (promyelocytes, myelocytes andmetamyelocytes) > 1% indicates that a LEFT SHIFT is Present. BASO% 0.2 % (Normal) Range: 0-1 EO% 0.7 % (Normal) Range: 0-5 MONO% 5.7 % (Normal) Range: 0-10 LY% 17.9 % (Abnormal) Range: 19-41 NEUT% 75.3 % (Abnormal) Range: 47-70 MPV 12.4 fL (Abnormal) Range: 6.2-12.0 PLT 229 K/mm3 (Normal) Range: 150-450 RDW SD 42.1 fL (Normal) Range: 35.1-43.9 RDW CV 12.9 % (Normal) Range: 11.6-14.6 MCHC 33.0 {g/gl} (Normal) Range: 32-36 MCH 29.8 pg (Normal) Range: 27.0-32.0 MCV 90.3 fL (Normal) Range: 81-99 HCT 41.8 % (Normal) Range: 37-47 HGB 13.8 g/dL (Normal) Range: 12.0-15.0 RBC 4.63 {M/mm3} (Normal) Range: 4.2-5.4 WBC 6.2 K/mm3 (Normal) Range: 4.4-11.0 72-Wnr-959928:13 Comprehensive Metabolic Profil Comments: 'TROP' Serial specimen #1, #2, #3, or #4: 1[facility] [address] [place], [place], [id number] GAP 6 (Normal) Range: 5-15 CO2 29.0 mmol/L (Normal) Range: 21.0-32.0 CL 103 mmol/L (Normal) Range: 98-107 K 3.8 mmol/L (Normal) Range: 3.5-5.1 NA 138 mmol/L (Normal) Range: 136-145 T BILI 0.60 mg/dL (Normal) Range: 0.20-1.00 ALT 28 U/L (Normal) Range: 12-78 ALK P 96 U/L (Normal) Range: 45-117 AST 18 U/L (Normal) Range: 15-37 CA 9.1 mg/dL (Normal) Range: 8.5-10.1 A/G 1.0 {RATIO} (Normal) Range: 0.9-2.4 GLOB 3.7 g/dL (Abnormal) Range: 2.3-3.5 ALB 3.7 g/dL (Normal) Range: 3.4-5.0 T PROT 7.4 g/dL (Normal) Range: 6.4-8.2 BUN/CRE 16.4 {RATIO} (Normal) Range: 10-20 EST GFR - AA 95 mL/min (Normal) Comments: GFR Calc EST GFR 79 mL/min (Normal) Comments: Non- GFR Calc CREAT,SERUM 0.79 mg/dL (Normal) Range: 0.55-1.02 Comments: The validity of the calculated GFR AND GFRAA in patients over70 years has not been determined. Clinical correlation isessential. BUN 13 mg/dL (Normal) Range: 7-18 GLU 76 mg/dL (Normal) Range: 70-110 :13 CPK Total, Creatine Kinase Comments: 'TROP' Serial specimen #1, #2, #3, or #4: [address] [place] [address] [place], [place], [id number] CPK TOTAL 57 U/L (Normal) Range: 26-192 24-Ibo-599542:13 CRP Comments: 'TROP' Serial specimen #1, #2, #3, or #4: [address] [place] [address] [place], [place], [id number] C-REACTIVE PROT 4.17 mg/L (Abnormal) Range: 0.0-3.0 Comments: C-Reactive Protein (CRP) provides useful information for thediagnosis, therapy and monitoring of inflammatory processesand associated diseases. For the evaluation of Relative Riskfor Cardiovascular Dise ase, a High Sensitivity CRP (HSCRP)should be ordered. 20-Azq-782743:13 Erythrocyte Sed Rate Comments: [facility] [address] [place], [place], [id number] SED RATE 16 mm/h (Normal) Range: 0-30 33-Gci-246713:13 Troponin-I Comments: 'TROP' Serial specimen #1, #2, #3, or #4: [address] [place] [address] [place], [place], [id number] TROPONIN-I < 0.02 ng/mL (Normal) Comments: TROPONIN-I EXPECTED VALUES <0.05 NEGATIVE 0.06 - 0.59 AT RISK OF [place] > OR = 0.60 SUGGEST [place] 92-Exe-123526:00 ANTISTREPTOLYSIN O-SCREN (01489) Comments: PATIENT NOT FASTINGPERFORMED BY: [facility] Fygoaz2161 [facility] [id number] Antistreptolysin O Ab <20.0 {IU/mL} (Normal) Range: 0.0-200.0 36-Uoz-349254:51 EBV Panel (55605) Comments: PATIENT NOT FASTINGPERFORMED BY: AMDLMichelle [place] [address] [facility] [id number] BY: [address] [id number] Interpretation: SPRCS (Normal) Comments: EBV Interpretation Chart . Interpretation EBV-IgM EA(D)-IgG VCA-IgG EBNA-IgG . EBV Seronegative - - - - Early Phase + - - - Acute Primary + +or- + - Infection Convalescence/Past - +or- + + Infection Reactivated +or- + + + Infection + Antibody Present - Antibody Absent EBV Nuclear Antigen Ab, IgG 92.9 U/mL (Abnormal) Range: 0.0-17.9 Comments: Negative <18.0 Equivocal 18.0 - 21.9 Positive >21.9 EBV Ab VCA, IgG >600.0 U/mL (Abnormal) Range: 0.0-17.9 Comments: Negative <18.0 Equivocal 18.0 - 21.9 Positive >21.9 EBV Early Antigen Ab, IgG 120.0 U/mL (Abnormal) Range: 0.0-8.9 Comments: Hepatitis A, Hepatitis C and HIV antibodies may cross-reactwith this assay. Negative < 9.0 Equivoc al 9.0 - 10.9 Positive >10.9 EBV Ab VCA, IgM <36.0 U/mL (Normal) Range: 0.0-35.9 Comments: Negative <36.0 Equivocal 36.0 - 43.9 Positive >43.9 87-Anz-598133:51 IGA/IGD/IGG/IGM-EACH (98064) Comments: PATIENT NOT FASTINGPERFORMED BY: [facility]6370 [facility] [id number] BY: [address] [id number] Immunoglobulin E, Total 48 {IU/mL} (Normal) Range: 0-100 Immunoglobulin M, Qn, Serum 57 mg/dL (Normal) Range: 26-217 Immunoglobulin A, Qn, Serum 238 mg/dL (Normal) Range: 87-352 Immunoglobulin G, Qn, Serum 1070 mg/dL (Normal) Range: 700-1600 13-Fpw-568270:51 CCP ANTIBODY (42391) Comments: PATIENT NOT FASTINGPERFORMED BY: AMDLMichelle [place] [address] [facility] [id number] BY: [address] [id number] CCP Antibodies IgG/IgA 6 {units} (Normal) Range: 0-19 Comments: Negative <20 Weak positive 20 - 39 Moderate positive 40 - 59 Strong positive >59 :51 SED RATE ERYTHROCYTE Comments: PATIENT NOT FASTINGPERFORMED BY: [place] [address] [facility] [id number] BY: [address] [id number] (90119) Sedimentation Rate-Westergren 8 mm/h (Normal) Range: 0-40 :51 C-REACTIVE PROTEIN Comments: PATIENT NOT FASTINGPERFORMED BY: AdypeJustin [place] [address] [facility] [id number] BY: [address] [id number] (19176) C-Reactive Protein, Quant 2.9 mg/L (Normal) Range: 0.0-4.9 :51 TSH (81583) Comments: PATIENT NOT FASTINGPERFORMED BY: AdypeJustin [place] [address] [facility] [id number] BY: [address] [id number] TSH 0.317 {uIU/mL} (Abnormal) Range: 0.450-4.500 :51 RHEUMATOID FACTOR-QUANT Comments: PATIENT NOT FASTINGPERFORMED BY: [address] [id number] BY: [address] [id number] (12539) RA Latex Turbid. <10.0 {IU/mL} (Normal) Range: 0.0-13.9 :51 ERI (ANTINUCLEAR ANTIBODY) Comments: PATIENT NOT FASTINGPERFORMED BY: [facility]6[address] [facility] [id number] BY: [place] [address]99597 [facility] [id number] (30505) ERI Direct Negative (Normal) 06-Atp-203009:51 METABOLIC PANEL, Comments: PATIENT NOT FASTINGPERFORMED BY: [place] [address] [facility] [id number] BY: [address] [id number] COMPREHENSIVE (62080) ALT (SGPT) 23 [iU]/L (Normal) Range: 0-32 AST (SGOT) 21 [iU]/L (Normal) Range: 0-40 Alkaline Phosphatase, S 84 [iU]/L (Normal) Range: 39-117 Bilirubin, Total 0.4 mg/dL (Normal) Range: 0.0-1.2 A/G Ratio 1.6 (Normal) Range: 1.1-2.5 Globulin, Total 2.7 g/dL (Normal) Range: 1.5-4.5 Albumin, Serum 4.2 g/dL (Normal) Range: 3.6-4.8 Protein, Total, Serum 6.9 g/dL (Normal) Range: 6.0-8.5 Calcium, Serum 9.4 mg/dL (Normal) Range: 8.7-10.3 Carbon Dioxide, Total 27 mmol/L (Normal) Range: 18-29 Chloride, Serum 99 mmol/L (Normal) Range: 96-106 Potassium, Serum 4.7 mmol/L (Normal) Range: 3.5-5.2 Sodium, Serum 141 mmol/L (Normal) Range: 134-144 BUN/Creatinine Ratio 14 (Normal) Range: 11-26 eGFR If Africn Am 73 mL/min/1.73 (Normal) eGFR If NonAfricn Am 63 mL/min/1.73 (Normal) Creatinine, Serum 0.98 mg/dL (Normal) Range: 0.57-1.00 BUN 14 mg/dL (Normal) Range: 8-27 Glucose, Serum 116 mg/dL (Abnormal) Range: 65-99 09-Ewt-571344:51 CBC with auto diff Comments: PATIENT NOT FASTINGPERFORMED BY: CRIS [facility]Co[facility] RehabilitationQmyzbi2918 [facility] [id number] BY: LabCoKayla [place] [address] [facility] [id number] (90964) Immature Grans (Abs) 0.0 {x10E3/uL} (Normal) Range: 0.0-0.1 Immature Granulocytes 0 % (Normal) Baso (Absolute) 0.0 {x10E3/uL} (Normal) Range: 0.0-0.2 Eos (Absolute) 0.1 {x10E3/uL} (Normal) Range: 0.0-0.4 Monocytes(Absolute) 0.4 {x10E3/uL} (Normal) Range: 0.1-0.9 Lymphs (Absolute) 1.5 {x10E3/uL} (Normal) Range: 0.7-3.1 Neutrophils (Absolute) 4.5 {x10E3/uL} (Normal) Range: 1.4-7.0 Basos 0 % (Normal) Eos 2 % (Normal) Monocytes 6 % (Normal) Lymphs 23 % (Normal) Neutrophils 69 % (Normal) Platelets 244 {x10E3/uL} (Normal) Range: 150-379 RDW 13.7 % (Normal) Range: 12.3-15.4 MCHC 33.7 g/dL (Normal) Range: 31.5-35.7 MCH 29.5 pg (Normal) Range: 26.6-33.0 MCV 87 fL (Normal) Range: 79-97 Hematocrit 40.6 % (Normal) Range: 34.0-46.6 Hemoglobin 13.7 g/dL (Normal) Range: 11.1-15.9 RBC 4.65 {x10E6/uL} (Normal) Range: 3.77-5.28 WBC 6.6 {x10E3/uL} (Normal) Range: 3.4-10.8 :28 ITALIA CULTURE-OTHER (32299) Comments: PATIENT NOT FASTINGPERFORMED BY: [facility] Gcdnrx0429 [facility] [id number] Information: SRC:TH Result 1 RRF (Normal) Comments: Routine respiratory villa Upper Respiratory Culture Final report (Normal) 62-Lke-525229:25 Rapid Strep Test, Office (12269) Rapid Strep Test, Office Negative (Normal) 86-Zfv-903100:20 Urinalysis, Office (06099) UA - LEUKOCYTE ESTERASE Negative (Normal) UA - NITRITE Negative (Normal) URINE UROBILINGN ANDRZEJ TIMED Normal mg/dL (Normal) UA - PROTEIN Negative mg/dL (Normal) UA - PH 6.5 (Normal) UA - BLOOD Negative (Normal) UA - SPECIFIC GRAVITY 1.025 (Normal) UA - KETONES Negative mg/dL (Normal) UA - BILIRUBIN Negative (Normal) UA - GLUCOSE Negative (Normal) 86-Hfm-602059:45 Urinalysis, Office (08810) UA - LEUKOCYTE ESTERASE Negative (Normal) UA - NITRITE Negative (Normal) URINE UROBILINGN ANDRZEJ TIMED Normal mg/dL (Normal) UA - PROTEIN Negative mg/dL (Normal) UA - PH 6.5 (Normal) UA - BLOOD Negative (Normal) UA - SPECIFIC GRAVITY 1.020 (Normal) UA - KETONES Negative mg/dL (Normal) UA - BILIRUBIN Negative (Normal) UA - GLUCOSE Negative (Normal) 78-Ozk-17889:56 HEPATITIS B SURFACE Comments: PATIENT NOT FASTINGPERFORMED BY: [facility] [id number] Information: [id number] ANTIBODY (21228) Hep B Surface Ab, Qual Non Reactive (Normal) Comments: Non Reactive: Inconsistent with immunity, less than 10 mIU/mL Reactive: Consistent with immunity, greater than 9.9 mIU/mL 56-Rca-782070:19 Urinalysis, Office (16420) UA - LEUKOCYTE ESTERASE Trace (Normal) UA - NITRITE Negative (Normal) URINE UROBILINGN ANDRZEJ TIMED 2 mg/dL (Normal) UA - PROTEIN Negative mg/dL (Normal) UA - PH 6.5 (Normal) UA - BLOOD Negative (Normal) UA - SPECIFIC GRAVITY 1.015 (Normal) UA - KETONES Negative mg/dL (Normal) UA - BILIRUBIN Negative (Normal) UA - GLUCOSE Negative (Normal) 87-Chs-28682:53 Lipid Panel (70296) Comments: PATIENT WAS FASTINGPERFORMED BY: [facility]isticCritical [facility] hospital [id number] LDL/HDL Ratio 1.1 {ratio_units} (Normal) Range: 0.0-3.2 Comments: LDL/HDL Ratio Men Women 1/2 Avg.Risk 1.0 1.5 Av g.Risk 3.6 3.2 2X Avg.Risk 6.2 5.0 3X Avg.Risk 8.0 6.1 LDL Cholesterol Calc 70 mg/dL (Normal) Range: 0-99 VLDL Cholesterol [place] 9 mg/dL (Normal) Range: 5-40 HDL Cholesterol 65 mg/dL (Normal) Comments: According to ATP-III Guidelines, HDL-C >59 mg/dL is considered anegative risk factor for CHD. Triglycerides 45 mg/dL (Normal) Range: 0-149 Cholesterol, Total 144 mg/dL (Normal) Range: 100-199 76-Lzz-48186:53 Metabolic Panel, Comprehensive Comments: PATIENT WAS FASTINGPERFORMED BY: [facility]Co[facility] for RehabilitationFezdzn6863 [facility] [id number] (06695) ALT (SGPT) 36 [iU]/L (Abnormal) Range: 0-32 AST (SGOT) 29 [iU]/L (Normal) Range: 0-40 Alkaline Phosphatase, S 94 [iU]/L (Normal) Range: 39-117 Bilirubin, Total 0.7 mg/dL (Normal) Range: 0.0-1.2 A/G Ratio 1.9 (Normal) Range: 1.1-2.5 Globulin, Total 2.2 g/dL (Normal) Range: 1.5-4.5 Albumin, Serum 4.1 g/dL (Normal) Range: 3.5-5.5 Protein, Total, Serum 6.3 g/dL (Normal) Range: 6.0-8.5 Calcium, Serum 9.1 mg/dL (Normal) Range: 8.7-10.2 Carbon Dioxide, Total 26 mmol/L (Normal) Range: 18-29 Chloride, Serum 100 mmol/L (Normal) Range: 97-108 Potassium, Serum 4.4 mmol/L (Normal) Range: 3.5-5.2 Sodium, Serum 139 mmol/L (Normal) Range: 134-144 BUN/Creatinine Ratio 16 (Normal) Range: 9-23 eGFR If Africn Am 110 mL/min/1.73 (Normal) eGFR If NonAfricn Am 95 mL/min/1.73 (Normal) Creatinine, Serum 0.70 mg/dL (Normal) Range: 0.57-1.00 BUN 11 mg/dL (Normal) Range: 6-24 Glucose, Serum 85 mg/dL (Normal) Range: 65-99 :53 CBC WITH MANUAL DIFF Comments: PATIENT WAS FASTINGPERFORMED BY: [id number] [facility] [id number] Information: [id number] ([id number]) Immature Grans (Abs) 0.0 {x10E3/uL} (Normal) Range: 0.0-0.1 Immature Granulocytes 0 % (Normal) Baso (Absolute) 0.0 {x10E3/uL} (Normal) Range: 0.0-0.2 Eos (Absolute) 0.1 {x10E3/uL} (Normal) Range: 0.0-0.4 Monocytes(Absolute) 0.4 {x10E3/uL} (Normal) Range: 0.1-0.9 Lymphs (Absolute) 1.1 {x10E3/uL} (Normal) Range: 0.7-3.1 Neutrophils (Absolute) 3.8 {x10E3/uL} (Normal) Range: 1.4-7.0 Basos 0 % (Normal) Eos 1 % (Normal) Monocytes 8 % (Normal) Lymphs 21 % (Normal) Neutrophils 70 % (Normal) Platelets 256 {x10E3/uL} (Normal) Range: 150-379 RDW 13.2 % (Normal) Range: 12.3-15.4 MCHC 33.2 g/dL (Normal) Range: 31.5-35.7 MCH 29.1 pg (Normal) Range: 26.6-33.0 MCV 87 fL (Normal) Range: 79-97 Hematocrit 39.7 % (Normal) Range: 34.0-46.6 Hemoglobin 13.2 g/dL (Normal) Range: 11.1-15.9 RBC 4.54 {x10E6/uL} (Normal) Range: 3.77-5.28 WBC 5.4 {x10E3/uL} (Normal) Range: 3.4-10.8 02-Rdl-00582:53 CALCIFEDIOL (86503) Comments: PATIENT WAS FASTINGPERFORMED BY: [facility] 77 Mehbps8663 Alan[facility] [place] [id number] Vitamin D, 25-Hydroxy 57.9 ng/mL (Normal) Range: 30.0-100.0 Comments: Vitamin D deficiency has been defined by the [place] and an Endocrine Society practice guideline as alevel of serum 25-OH vitamin D less than 20 ng/mL (1,2).The Endocrine Society went on to further define vitamin Dinsufficiency as a level between 21 and 29 ng/mL (2).1. IOM ([place] [employer]). 2010. Dietary reference intakes for calcium and D. [place]: The National Academies Press.2. Chantal MF, Patricio NIELSEN, Pooja RENDON, et al. Evaluation, treatment, and prevention of vitamin D deficiency: an Endocrine Society clinical practice guideline. JCEM. 2010; 96(7):1911-30. :53 T4, FREE (THYROXINE) (30265) Comments: PATIENT WAS FASTINGPERFORMED BY: [employer] Ccyplo3421 [facility] [place] [id number] T4,Free(Direct) 1.52 ng/dL (Normal) Range: 0.82-1.77 :53 TSH (46154) Comments: PATIENT WAS FASTINGPERFORMED BY: [facility] Xkemyr7446 Alaniz [facility] [place] [id number] TSH 1.790 {uIU/mL} (Normal) Range: 0.450-4.500 47-Vmi-373026:19 Lipid Panel (98320) Comments: PATIENT WAS FASTINGPERFORMED BY: [facility] Hifjtt9641 Alaniz [facility] [place] [id number] LDL/HDL Ratio 1.1 {ratio_units} (Normal) Range: 0.0-3.2 LDL Cholesterol Calc 65 mg/dL (Normal) Range: 0-99 VLDL Cholesterol [place] 16 mg/dL (Normal) Range: 5-40 HDL Cholesterol 61 mg/dL (Normal) Comments: According to ATP-III Guidelines, HDL-C >59 mg/dL is considered anegative risk factor for CHD. Triglycerides 79 mg/dL (Normal) Range: 0-149 Cholesterol, Total 142 mg/dL (Normal) Range: 100-199 :19 CBC with manual diff Comments: PATIENT WAS FASTINGPERFORMED BY: [facility] [id number] Information: [id number] (95480) Immature Grans (Abs) 0.0 {x10E3/uL} (Normal) Range: 0.0-0.1 Immature Granulocytes 0 % (Normal) Range: 0-2 Baso (Absolute) 0.0 {x10E3/uL} (Normal) Range: 0.0-0.2 Eos (Absolute) 0.1 {x10E3/uL} (Normal) Range: 0.0-0.4 Monocytes(Absolute) 0.6 {x10E3/uL} (Normal) Range: 0.1-0.9 Lymphs (Absolute) 1.2 {x10E3/uL} (Normal) Range: 0.7-3.1 Neutrophils (Absolute) 4.9 {x10E3/uL} (Normal) Range: 1.4-7.0 Basos 1 % (Normal) Range: 0-3 Eos 2 % (Normal) Range: 0-5 Monocytes 9 % (Normal) Range: 4-12 Lymphs 18 % (Normal) Range: 14-46 Neutrophils 70 % (Normal) Range: 40-74 Platelets 281 {x10E3/uL} (Normal) Range: 150-379 Comments: Please note reference interval change RDW 14.1 % (Normal) Range: 12.3-15.4 MCHC 32.5 g/dL (Normal) Range: 31.5-35.7 MCH 28.9 pg (Normal) Range: 26.6-33.0 MCV 89 fL (Normal) Range: 79-97 Hematocrit 43.4 % (Normal) Range: 34.0-46.6 Hemoglobin 14.1 g/dL (Normal) Range: 11.1-15.9 RBC 4.88 {x10E6/uL} (Normal) Range: 3.77-5.28 WBC 6.9 {x10E3/uL} (Normal) Range: 3.4-10.8 33-Qrx-871598:19 Metabolic Panel, Comprehensive Comments: PATIENT WAS FASTINGPERFORMED BY: Adype Dmctol8875 [facility] [id number] (77609) ALT (SGPT) 44 [iU]/L (Abnormal) Range: 0-32 AST (SGOT) 30 [iU]/L (Normal) Range: 0-40 Alkaline Phosphatase, S 84 [iU]/L (Normal) Range: 39-117 Bilirubin, Total 0.6 mg/dL (Normal) Range: 0.0-1.2 A/G Ratio 1.7 (Normal) Range: 1.1-2.5 Globulin, Total 2.6 g/dL (Normal) Range: 1.5-4.5 Albumin, Serum 4.4 g/dL (Normal) Range: 3.5-5.5 Protein, Total, Serum 7.0 g/dL (Normal) Range: 6.0-8.5 Calcium, Serum 9.3 mg/dL (Normal) Range: 8.7-10.2 Carbon Dioxide, Total 25 mmol/L (Normal) Range: 18-29 Comments: Please note reference interval change Chloride, Serum 100 mmol/L (Normal) Range: 97-108 Potassium, Serum 4.8 mmol/L (Normal) Range: 3.5-5.2 Sodium, Serum 138 mmol/L (Normal) Range: 134-144 BUN/Creatinine Ratio 10 (Normal) Range: 9-23 eGFR If Africn Am 80 mL/min/1.73 (Normal) eGFR If NonAfricn Am 70 mL/min/1.73 (Normal) Creatinine, Serum 0.91 mg/dL (Normal) Range: 0.57-1.00 BUN 9 mg/dL (Normal) Range: 6-24 Glucose, Serum 87 mg/dL (Normal) Range: 65-99 44-Apz-853013:19 TSH (59540) Comments: PATIENT WAS FASTINGPERFORMED BY: [facility] 77[facility] for RehabilitationTflhhd8271 [facility] [id number] TSH 1.710 {uIU/mL} (Normal) Range: 0.450-4.500 4-Ukz-566091:24 BILAT SCRN DIGITAL & CAD Radiology Report See Note Comments: MAMMOGRAPHY - BILATERAL SCREENING REASON FOR EXAM: Female, 57 years old. Routine annual screeningexamination. PERTINENT HISTORY: Non-contributory. TECHNIQUE: Digital examination. Med iolateral ob (Normal) lique (MLO) andcraniocaudad (CC) views of both breasts were obtained. CAD: CAD wasperformed on this study. COMPARISON: Comparison is made with prior study dated February 27nd May 25, 2006. FINDINGS:The breast composition is composed of scattered fibroglandular tissuesranging from 25% to 50% of the breast. There are no dominant masses or suspicious calci fications. No other significant abnormalities are identified. There has been nosignificant change since the prior study. IMPRESSION:Stable bilateral screening mammogr am. Yearly follow-up recommended. (A) ASSESSMENT CATEGORY:BIRADS Category 2: Benign finding(s). A letter regarding these resultswill be sent to the patient by the facility within 30 days. Approximately 10% of breast cancers are not detected by mammography. Anormal mammogram should not delay biopsy of a clinically suspiciousabnormality. Signed:Dk Perla M.D.January 07, 2013 at 10:55:36 AM [phone] Signed GP/GP If you are the referring physician and would like to consult with theradiologist who provided this interpretation, please c asad Alexander M.D. at [phone]. If this radiologist is unavailable, youwill be directed to another radiologist to assist. If you are a patient with a question regarding this report, plea secontactyour referring physician directly. Professional Interpretation Provided By: [employer], Phone , These documents contain legally protected and confidential healthi nformation intended only for the use of the individual or entity namedabove. If you are not the intended recipient, you are hereby notifiedthatany disclosure, copying, distribution, or other use of thes e documents isstrictly prohibited. If you have received this information in error,pleasenotify the sender immediately and arrange for the return or destructionofthese documents. Dictated on 01/07/13 1055 by Amarjit Perla MDranscribed on 01/07/13 1103 by ITS IMPORTSign by Dk Perla MD on 01/07/13 1104 Sign by: Dk Perla MD 9-Stg-288892:04 Lyme Disease,Serum, Western Comments: PATIENT NOT FASTINGPERFORMED BY: [facility] [address] [id number] BY: [facility] Cnevqp0961 [facility] [id number] Information: [id number] Blot (29096) Lyme IgM WB Interp. Negative (Normal) Comments: Note: An equivocal or positive EIA result followed by a negativeWestern Blot result is considered NEGATIVE. An equivocal or positiveEIA result followed by a positive Western Blot is consider ed POSITIVEb y the CDC. .Positive: 2 of the following bands: 23,39 or 41Negative: No bands or banding patterns which do not meet positivecriteria.Cr iteria for positivity are those recommended by CDC/ASTPHLD.p23=Osp C, x66=btcynbqgy .Note:Sera from individuals with the following may cross react in theLyme Western Blot assays: other spirochetal diseases (periodontaldisease, leptospirosis, relapsing fever, yaws, and pinta);connective autoimmune (Rheumatoid Arthritis and Systemic Lupu sErythematosus and also individuals with Antinuclear Antibody);other infections ([place] Spotted Fever; Fidencio-Hester Virus,and Cytomegalovirus). . IgM P23 Ab. Absent (Normal) IgM P39 Ab. Absent (Normal) IgM P41 Ab. Absent (Normal) Lyme IgG WB Interp. Negative (Normal) Comments: Positive: 5 of the following Borrelia-specific bands: 18,23,28,30,39,41,45,58, 66, and 93. Negative: No bands or banding patterns which do not meet positive criteria. IgG P18 Ab. Absent (Normal) IgG P23 Ab. Absent (Normal) IgG P28 Ab. Absent (Normal) IgG P30 Ab. Absent (Normal) IgG P39 Ab. Absent (Normal) IgG P41 Ab. Present (Abnormal) IgG P45 Ab. Absent (Normal) IgG P58 Ab. Absent (Normal) IgG P66 Ab. Absent (Normal) IgG P93 Ab. Absent (Normal) 5-Aau-636206:04 Lyme Disease Antibody W/ Comments: PATIENT NOT FASTINGPERFORMED BY: [employer]ype[address] [id number] BY: [employer] [facility] [id number] Reflex (80680) Lyme Ab Interp.,EIA Negative (Normal) Lyme IgG/IgM Ab <0.91 {index} (Normal) Range: 0.00-0.90 Comments: Negative <0.91 Equivocal 0.91 - 1.09 Positive >1.09 Note: The CDC curren tly advises that Western blot testing be performed following all equivocal or positive EIA results. Final diagnosis should include appropriate clinical findi ngs and a positive EIA which is also positive by Western blot. :04 T4, TOTAL (43152) Comments: PATIENT NOT FASTINGPERFORMED BY: Adype[address] [id number] BY: AdypeKessler Institute for RehabilitationDactxi9089 [facility] [id number] Thyroxine (T4) 12.7 ug/dL (Abnormal) Range: 4.5-12.0 1-Gaj-367660:04 T3, FREE (TRIDOTHYRONINE) Comments: PATIENT NOT FASTINGPERFORMED BY: AMDL[address] [id number] BY: AdypeJustin [place] 3331070 [facility] [id number] (63476) Triiodothyronine,Free,Serum 3.5 pg/mL (Normal) Range: 2.0-4.4 4-Bta-744919:04 CALCIFIDIOL (31001) VIT D Comments: PATIENT NOT FASTINGPERFORMED BY: Adype[address] [id number] BY: [employer]ype Cycjpz4923 [facility] [id number] Vitamin D, 25-Hydroxy 23.9 ng/mL (Abnormal) Range: 30.0-100.0 Comments: Vitamin D deficiency has been defined by the [place] of[facility] Medical Centercine and an Endocrine Society practice guideline as alevel of serum 25-OH vitamin D less than 20 ng/mL (1,2).The Endocrine Society went on to further define vitamin Dinsufficiency as a level between 21 and 29 ng/mL (2).1. IOM ([place] [employer] [place]). 2010. Dietary reference intakes for calcium and D. [place]: The National Academies Press.2. Chantal MF, Patricio NIELSEN, Pooja RENDON, et al. Evaluation, treatment, and prevention of vitamin D deficiency: an Endocrine Society clinical practice guideline. JCEM. 2010; 96(7):1911-30. 2-Swq-610400:04 Folate (30314) Comments: PATIENT NOT FASTINGPERFORMED BY: Adype[address] [id number] BY: AdypeKessler Institute for RehabilitationRvzoup4873 [facility] [id number] Folate (Folic Acid), Serum >19.9 ng/mL (Normal) Comments: A serum folate concentration of less than 3.1 ng/mL isconsidered to represent clinical deficiency. 4-Eic-291273:04 VITAMIN B-12 (CYANOCOBALAMIN) Comments: PATIENT NOT FASTINGPERFORMED BY: AMDL[address] [id number] BY: AMDLAscension [facility] Hospital6370 [facility] [id number] (61525) Vitamin B12 499 pg/mL (Normal) Range: 211-946 0-Sio-904941:04 TSH (20791) Comments: PATIENT NOT FASTINGPERFORMED BY: AMDL[address] [id number] BY: AMDLCo Yxtnqw4468 [facility] [id number] TSH 0.214 {uIU/mL} (Abnormal) Range: 0.450-4.500 0-Bxx-546953:04 SED RATE ERYTHROCYTE Comments: PATIENT NOT FASTINGPERFORMED BY: AMDL[address] [id number] BY: [facility]6370 [facility] [id number] (12049) Sedimentation Rate-Westergren 3 mm/h (Normal) Range: 0-40 4-Oak-187445:04 RHEUMATOID FACTOR-QUANT Comments: PATIENT NOT FASTINGPERFORMED BY: AMDL[address] [id number] BY: [facility] Hospital6370 [facility] [id number] (94184) RA Latex Turbid. 8.2 {IU/mL} (Normal) Range: 0.0-13.9 :04 METABOLIC PANEL, Comments: PATIENT NOT FASTINGPERFORMED BY: AMDL[address] [id number] BY: AdypeKessler Institute for RehabilitationKngzyy4836 [facility] [id number] COMPREHENSIVE (94073) ALT (SGPT) 26 [iU]/L (Normal) Range: 0-32 AST (SGOT) 22 [iU]/L (Normal) Range: 0-40 Alkaline Phosphatase, S 104 [iU]/L (Normal) Range: 42-107 Bilirubin, Total 0.7 mg/dL (Normal) Range: 0.0-1.2 A/G Ratio 1.5 (Normal) Range: 1.1-2.5 Globulin, Total 3.0 g/dL (Normal) Range: 1.5-4.5 Albumin, Serum 4.5 g/dL (Normal) Range: 3.5-5.5 Protein, Total, Serum 7.5 g/dL (Normal) Range: 6.0-8.5 Calcium, Serum 9.6 mg/dL (Normal) Range: 8.7-10.2 Carbon Dioxide, Total 23 mmol/L (Normal) Range: 19-28 Chloride, Serum 103 mmol/L (Normal) Range: 97-108 Potassium, Serum 4.6 mmol/L (Normal) Range: 3.5-5.2 Sodium, Serum 140 mmol/L (Normal) Range: 134-144 BUN/Creatinine Ratio 13 (Normal) Range: 9-23 eGFR If Africn Am 88 mL/min/1.73 (Normal) eGFR If NonAfricn Am 76 mL/min/1.73 (Normal) Creatinine, Serum 0.85 mg/dL (Normal) Range: 0.57-1.00 BUN 11 mg/dL (Normal) Range: 6-24 Glucose, Serum 107 mg/dL (Abnormal) Range: 65-99 1-Yyt-508332:04 C-REACTIVE PROTEIN (44272) Comments: PATIENT NOT FASTINGPERFORMED BY: [employer] [address] [id number] BY: Correlor Lxpfsb8539 [facility] [id number] C-Reactive Protein, Quant 10.6 mg/L (Abnormal) Range: 0.0-4.9 8-Dlw-881429:04 CBC (AUTO) (37363) Comments: PATIENT NOT FASTINGPERFORMED BY: locr [facility] 77rp [address] [id number] BY: GaopengKessler Institute for RehabilitationVyhsdg5131 [facility] [id number] Platelets 292 {x10E3/uL} (Normal) Range: 140-415 RDW 13.5 % (Normal) Range: 12.3-15.4 MCHC 32.2 g/dL (Normal) Range: 31.5-35.7 MCH 28.6 pg (Normal) Range: 26.6-33.0 MCV 89 fL (Normal) Range: 79-97 Hematocrit 44.1 % (Normal) Range: 34.0-46.6 Hemoglobin 14.2 g/dL (Normal) Range: 11.1-15.9 RBC 4.96 {x10E6/uL} (Normal) Range: 3.77-5.28 WBC 5.4 {x10E3/uL} (Normal) Range: 4.0-10.5 5-Ery-619808:04 ERI (ANTINUCLEAR ANTIBODY) Comments: PATIENT NOT FASTINGPERFORMED BY: [place] 799597 [facility] [id number] BY: [facility]6370 [facility] [id number] (59594) ERI Direct Negative (Normal) :16 T4, FREE (THYROXINE) (78894) Comments: PATIENT NOT FASTINGPERFORMED BY: [facility] [facility] [id number] T4,Free(Direct) 1.91 ng/dL (Abnormal) Range: 0.82-1.77 :16 T3, FREE (TRIDOTHYRONINE) (20895) Comments: PATIENT NOT FASTINGPERFORMED BY: [facility] [facility] [id number] Triiodothyronine,Free,Serum 3.3 pg/mL (Normal) Range: 2.0-4.4 69-Xcx-350701:16 Magnesium (40600) Comments: PATIENT NOT FASTINGPERFORMED BY: [facility] [facility] [id number] Magnesium, Serum 2.2 mg/dL (Normal) Range: 1.6-2.6 86-Sgm-283541:16 Hemoglobin Glyclated (HGB A1C) Comments: PATIENT NOT FASTINGPERFORMED BY: [place] [address] [facility] [id number] (08214) Hemoglobin A1c 5.6 % (Normal) Range: 4.8-5.6 Comments: . Increased risk for diabetes: 5.7 - 6.4 Diabetes: >6.4 Glycemic control for adults with diabetes: <7.0 :16 CBC (Auto) (14199) Comments: PATIENT NOT FASTINGPERFORMED BY: [facility]6370 [facility] [id number] Platelets 283 {x10E3/uL} (Normal) Range: 140-415 MCHC 32.7 g/dL (Normal) Range: 31.5-35.7 RDW 13.7 % (Normal) Range: 12.3-15.4 MCH 29.1 pg (Normal) Range: 26.6-33.0 MCV 89 fL (Normal) Range: 79-97 Hematocrit 41.9 % (Normal) Range: 34.0-46.6 Hemoglobin 13.7 g/dL (Normal) Range: 11.1-15.9 RBC 4.71 {x10E6/uL} (Normal) Range: 3.77-5.28 WBC 6.5 {x10E3/uL} (Normal) Range: 4.0-10.5 67-Min-916197:16 Metabolic Panel, Comments: PATIENT NOT FASTINGPERFORMED BY: LabCoKessler Institute for RehabilitationUftflv8040 [facility] [id number] Information: [id number] Comprehensive (14811) ALT (SGPT) 20 [iU]/L (Normal) Range: 0-32 AST (SGOT) 15 [iU]/L (Normal) Range: 0-40 Alkaline Phosphatase, S 95 [iU]/L (Normal) Range: 25-150 Bilirubin, Total 0.5 mg/dL (Normal) Range: 0.0-1.2 A/G Ratio 1.5 (Normal) Range: 1.1-2.5 Globulin, Total 2.8 g/dL (Normal) Range: 1.5-4.5 Albumin, Serum 4.3 g/dL (Normal) Range: 3.5-5.5 Protein, Total, Serum 7.1 g/dL (Normal) Range: 6.0-8.5 Calcium, Serum 9.5 mg/dL (Normal) Range: 8.7-10.2 Carbon Dioxide, Total 26 mmol/L (Normal) Range: 20-32 Chloride, Serum 102 mmol/L (Normal) Range: 97-108 Potassium, Serum 4.7 mmol/L (Normal) Range: 3.5-5.2 Sodium, Serum 139 mmol/L (Normal) Range: 134-144 BUN/Creatinine Ratio 14 (Normal) Range: 9-23 eGFR If Africn Am 91 mL/min/1.73 (Normal) eGFR If NonAfricn Am 79 mL/min/1.73 (Normal) BUN 12 mg/dL (Normal) Range: 6-24 Creatinine, Serum 0.83 mg/dL (Normal) Range: 0.57-1.00 Glucose, Serum 97 mg/dL (Normal) Range: 65-99 10-Bff-833381:16 TSH (51682) Comments: PATIENT NOT FASTINGPERFORMED BY: [facility]LAsc[facility] Hospital6370 [facility] [id number] TSH 0.220 {uIU/mL} (Abnormal) Range: 0.450-4.500 10-Sze-082704:16 CALCIFIDIOL (98791) VIT D 25 Comments: PATIENT NOT FASTINGPERFORMED BY: [facility]LAscension [facility] Hospital6370 [facility] [id number] Vitamin D, 25-Hydroxy 18.6 ng/mL (Abnormal) Range: 30.0-100.0 Comments: Vitamin D deficiency has been defined by the [place] of[facility] Centercine and an Endocrine Society practice guideline as alevel of serum 25-OH vitamin D less than 20 ng/mL (1,2).The Endocrine Society went on to further define vitamin Dinsufficiency as a level between 21 and 29 ng/mL (2).1. IOM ([place] [employer]). 2010. Dietary reference intakes for calcium and D. [place]: The National Academies Press.2. Chantal MF, Patricio NC, Pooja RENDON, et al. Evaluation, treatment, and prevention of vitamin D deficiency: an Endocrine Society clinical practice guideline. JCEM. 2010; 96(7):1911-30. 14-Lxr-845994:59 HEMOGLOBIN GLYCLATED (HGB A1C) (93996) HEMOGLOBIN GLYCLATED (HGB A1C) 5.5 % (Normal) Range: 4.6 - 7.1 78-Zfr-721796:17 HgA1C , Office (85133) HgA1C , Office 5.4 % (Normal) Range: 4.6 - 7.1 15-Doj-999170:02 CBC with manual diff Comments: PATIENT WAS FASTINGPERFORMED BY: [facility] [facility] [id number] Information: [id number] (77706) Immature Grans (Abs) 0.0 {x10E3/uL} (Normal) Range: 0.0-0.1 Immature Granulocytes 0 % (Normal) Range: 0-2 Baso (Absolute) 0.0 {x10E3/uL} (Normal) Range: 0.0-0.2 Eos (Absolute) 0.1 {x10E3/uL} (Normal) Range: 0.0-0.4 Monocytes(Absolute) 0.4 {x10E3/uL} (Normal) Range: 0.1-1.0 Lymphs (Absolute) 1.3 {x10E3/uL} (Normal) Range: 0.7-4.5 Neutrophils (Absolute) 4.0 {x10E3/uL} (Normal) Range: 1.8-7.8 Basos 0 % (Normal) Range: 0-3 Eos 2 % (Normal) Range: 0-7 Monocytes 8 % (Normal) Range: 4-13 Lymphs 22 % (Normal) Range: 14-46 Neutrophils 68 % (Normal) Range: 40-74 Platelets 295 {x10E3/uL} (Normal) Range: 140-415 RDW 13.7 % (Normal) Range: 11.7-15.0 MCHC 32.7 g/dL (Normal) Range: 32.0-36.0 MCH 28.9 pg (Normal) Range: 27.0-34.0 MCV 89 fL (Normal) Range: 80-98 Hematocrit 43.7 % (Normal) Range: 34.0-44.0 Hemoglobin 14.3 g/dL (Normal) Range: 11.5-15.0 RBC 4.94 {x10E6/uL} (Normal) Range: 3.80-5.10 WBC 5.9 {x10E3/uL} (Normal) Range: 4.0-10.5 53-Lku-787318:02 Metabolic Panel, Comprehensive Comments: PATIENT WAS FASTINGPERFORMED BY: LabCoKessler Institute for RehabilitationVsctxs6785 [facility] [id number] (49811) ALT (SGPT) 26 [iU]/L (Normal) Range: 0-40 AST (SGOT) 21 [iU]/L (Normal) Range: 0-40 Alkaline Phosphatase, S 102 [iU]/L (Normal) Range: 25-150 Bilirubin, Total 0.6 mg/dL (Normal) Range: 0.0-1.2 A/G Ratio 1.6 (Normal) Range: 1.1-2.5 Globulin, Total 2.9 g/dL (Normal) Range: 1.5-4.5 Albumin, Serum 4.5 g/dL (Normal) Range: 3.5-5.5 Protein, Total, Serum 7.4 g/dL (Normal) Range: 6.0-8.5 Calcium, Serum 9.8 mg/dL (Normal) Range: 8.7-10.2 Carbon Dioxide, Total 25 mmol/L (Normal) Range: 20-32 Chloride, Serum 103 mmol/L (Normal) Range: 97-108 Potassium, Serum 4.5 mmol/L (Normal) Range: 3.5-5.2 Sodium, Serum 140 mmol/L (Normal) Range: 134-144 BUN/Creatinine Ratio 14 (Normal) Range: 9-23 eGFR If Africn Am 87 mL/min/1.73 (Normal) Comments: Note: A persistent eGFR <60 mL/min/1.73 m2 (3 months or more) mayindicate chronic kidney disease. An eGFR >59 mL/min/1.73 m2 with anelevated urine protein also may indicate chronic kidney disease.Calculated using CKD-EPI formula. eGFR If NonAfricn Am 75 mL/min/1.73 (Normal) Creatinine, Serum 0.87 mg/dL (Normal) Range: 0.57-1.00 BUN 12 mg/dL (Normal) Range: 6-24 Glucose, Serum 110 mg/dL (Abnormal) Range: 65-99 03-Ood-747335:02 TSH (66807) Comments: PATIENT WAS FASTINGPERFORMED BY: [employer] Uwmwrr7410 [facility] [id number] TSH 0.115 {uIU/mL} (Abnormal) Range: 0.450-4.500 49-Gkf-811007:02 T4, FREE (THYROXINE) (58195) Comments: PATIENT WAS FASTINGPERFORMED BY: [employer] Jmtfsi2819 [facility] NorthlandLiquidFrameworksCritical access hospital [id number] T4,Free(Direct) 1.94 ng/dL (Abnormal) Range: 0.82-1.77 96-Crz-352446:11 ITALIA CULTURE-OTHER (18231) Comments: PATIENT NOT FASTINGPERFORMED BY: [employer] [facility] [id number] Information: SRC:DIONISIO [id number] Result 1 RRF (Normal) Comments: Routine respiratory villa Upper Respiratory Culture Final report (Normal) 27-Tht-474404:22 Rapid Strep Test, Office (46946) Rapid Strep Test, Office Negative (Normal) :28 Urinalysis, Office (80254) UA - BILIRUBIN Negative (Normal) UA - BLOOD Negative (Normal) UA - GLUCOSE Negative (Normal) UA - KETONES Negative mg/dL (Normal) UA - LEUKOCYTE ESTERASE Negative (Normal) UA - NITRITE Negative (Normal) UA - PH 6.0 (Normal) UA - PROTEIN Negative mg/dL (Normal) UA - SPECIFIC GRAVITY 1.005 (Normal) URINE UROBILINGN ANDRZEJ TIMED 2 mg/dL (Normal) :23 CBC With Differential/Platelet Comments: PATIENT WAS FASTINGPERFORMED BY: [facility] Luhqqz8202 [facility] [id number] Immature Grans (Abs) 0.0 {x10E3/uL} (Normal) Range: 0.0-0.1 Baso (Absolute) 0.0 {x10E3/uL} (Normal) Range: 0.0-0.2 Immature Granulocytes 0 % (Normal) Range: 0-1 Eos (Absolute) 0.1 {x10E3/uL} (Normal) Range: 0.0-0.4 Lymphs (Absolute) 1.4 {x10E3/uL} (Normal) Range: 0.7-4.5 Monocytes(Absolute) 0.4 {x10E3/uL} (Normal) Range: 0.1-1.0 Neutrophils (Absolute) 3.8 {x10E3/uL} (Normal) Range: 1.8-7.8 Basos 1 % (Normal) Range: 0-3 Eos 2 % (Normal) Range: 0-7 Lymphs 24 % (Normal) Range: 14-46 Monocytes 7 % (Normal) Range: 4-13 Neutrophils 66 % (Normal) Range: 40-74 MCH 29.9 pg (Normal) Range: 27.0-34.0 MCHC 32.8 g/dL (Normal) Range: 32.0-36.0 MCV 91 fL (Normal) Range: 80-98 Platelets 262 {x10E3/uL} (Normal) Range: 140-415 RDW 13.6 % (Normal) Range: 11.7-15.0 Hematocrit 42.1 % (Normal) Range: 34.0-44.0 Hemoglobin 13.8 g/dL (Normal) Range: 11.5-15.0 RBC 4.62 {x10E6/uL} (Normal) Range: 3.80-5.10 WBC 5.7 {x10E3/uL} (Normal) Range: 4.0-10.5 [id number] Comp. Metabolic Panel (14) Comments: PATIENT WAS FASTINGPERFORMED BY: [id number] [id number] ALT (SGPT) 25 [iU]/L (Normal) Range: 0-40 AST (SGOT) 20 [iU]/L (Normal) Range: 0-40 A/G Ratio 1.5 (Normal) Range: 1.1-2.5 Alkaline Phosphatase, S 96 [iU]/L (Normal) Range: 25-150 Bilirubin, Total 0.7 mg/dL (Normal) Range: 0.0-1.2 Albumin, Serum 4.1 g/dL (Normal) Range: 3.5-5.5 Globulin, Total 2.7 g/dL (Normal) Range: 1.5-4.5 Protein, Total, Serum 6.8 g/dL (Normal) Range: 6.0-8.5 BUN/Creatinine Ratio 12 (Normal) Range: 9-23 Comments: Please note reference interval change Calcium, Serum 9.7 mg/dL (Normal) Range: 8.7-10.2 Carbon Dioxide, Total 24 mmol/L (Normal) Range: 20-32 Chloride, Serum 101 mmol/L (Normal) Range: 97-108 Potassium, Serum 4.5 mmol/L (Normal) Range: 3.5-5.2 Sodium, Serum 138 mmol/L (Normal) Range: 135-145 eGFR >59 mL/min/1.73 (Normal) eGFR AfricanAmerican >59 mL/min/1.73 Comments: Note: Persistent reduction for 3 months or more in an eGFR<60 mL/min/1.73 m2 defines CKD. Patients with eGFR values>/=60 mL/min/1.73 m2 may also have CKD if evidence of persistentproteinuria is (Normal) present. Additional information may be found [email or web address]. BUN 11 mg/dL (Normal) Range: 6-24 Comments: Please note reference interval change Creatinine, Serum 0.90 mg/dL (Normal) Range: 0.57-1.00 Glucose, Serum 104 mg/dL (Abnormal) Range: 65-99 04-Imv-85974:23 Lipid Panel With LDL/HDL Comments: PATIENT WAS FASTINGPERFORMED BY: [employer] [facility] [id number] Ratio LDL Cholesterol Calc 95 mg/dL (Normal) Range: 0-99 LDL/HDL Ratio 1.1 {ratio_units} (Normal) Range: 0.0-3.2 VLDL Cholesterol [place] 16 mg/dL (Normal) Range: 5-40 HDL Cholesterol 83 mg/dL (Normal) Comments: According to ATP-III Guidelines, HDL-C >59 mg/dL is considered anegative risk factor for CHD. Triglycerides 80 mg/dL (Normal) Range: 0-149 Cholesterol, Total 194 mg/dL (Normal) Range: 100-199 82-Cjf-19160:23 Thyroxine (T4) Free, Direct, S Comments: PATIENT WAS FASTINGPERFORMED BY: [facility] MexicoZrszue9923 [facility] [id number] T4,Free(Direct) 1.72 ng/dL Range: 0.82-1.77 (Normal) 18-Jun-2010 Triiodothyronine,Free,Seru 2.8 pg/mL (Normal) Comments: PATIENT WAS FASTINGPERFORMED BY: [facility] MexicoYnmtfd0873 [facility] [id number] 9:23 m Range: 2.0-4.4 18-Jun-2010 TSH 0.246 {uIU/mL} Comments: PATIENT WAS FASTINGPERFORMED BY: [employer] [id number] [facility] [id number] 9:23 (Abnormal) Range: 0.450-4.500 18-Jun-2010 Vitamin D, 25-Hydroxy 18.7 ng/mL Comments: PATIENT WAS FASTINGPERFORMED BY: [employer] [facility] [id number] 9:23 (Abnormal) Range: 32.0-100.0 Comments: Recent studies consider the lower limit of 32.0 ng/mL to be athreshold for optimal health.Gautam CENTENO. J Nutr. 2004;135(2):317-22. 73-Lna-37027:56 UNILAT LT DIAG DIGITAL & CAD Radiology Report See Note (Normal) Comments: Exam Number: [id number] MAMMOGRAM, UNILATERAL LEFT DIAGNOSTIC DIGITAL AND CAD HISTORYLeft retroareolar density. Full field digital images were obtained in true lateral and in leftmediolateral oblique and craniocaudal spot compression views. The current study is compared to the examinations of May, and February 27, 2009. The apparent focal density seen in the retroareolar area of the leftb reast is not a persistent finding. This density must haverepresented superimposition. There is moderately dense fibroglandularparenchyma present. There is no skin thickening or retraction,architectur al distortion, or cluster of suspiciousmicrocalcifications. If there is no suspicious palpable abnormality,followup mammogram in 1 year is recommended. IMPRESSIONThere is no radiographic evidence of ma lignancy identified. FINAL ASSESSMENTBenign findings. BIRADS Category 2. A letter regarding the results has been sent to the patient. This interpretation was rendered by a radiologist certified under theMammography Quality Standards Act of 1992 (MQSA). The mammograms werealso examined with computer-aided detection software ([employer], [employer] Reported By: KE ALONZO M.D. :58 [facility] DIGITAL [facility] CAD Radiology Report See Note (Normal) Comments: Exam Number: [id number] MAMMOGRAM, BILATERAL SCREENING DIGITAL AND CAD HISTORYRoutine screening. TECHNIQUE Full field digital images were obtained in mediolateral oblique andcraniocaudal proj ections. CA D images were reviewed. The current study is compared to the examination of May. FINDINGSThere is moderately dense fibroglandular parenchyma present. There isno skin thickening or retrac tion, architectural distortion, or clusterof suspicious microcalcifications. Density in the retroareolar areaof the left breast appears more focal than on the previousexamination. For further evaluati on, rolled craniocaudal and spotmediolateral oblique and craniocaudal views are recommended. Spotfilms should be obtained with the nipple in profile. IMPRESSIONPossible change on the left. Additiona l views are recommended. FINAL ASSESSMENTNeed additional imaging evaluation. BIRADS Category 0. A letter regarding these results has been sent to the patient. This interpretation was rendered by a radiologist certified under theMammography Quality Standards Act of 1992 (MQSA). The mammograms werealso examined with computer-aided detection software ([employer] Reported By: KE ALONZO M.D. 55-Ggs-629833:58 CBCD,SMEAR DIFF CELLS COUNTED 100 (Normal) EOS 2 % (Normal) Range: 0-5 LYMPH 27 % (Normal) Range: 19-41 MCHC 33.2 g/dL (Normal) Range: 32-36 MONOCYTE 1 % (Normal) Range: 0-10 PLT 254 K/mm3 (Normal) Range: 150-450 PLT EST SeeNote (Normal) Comments: Result: ADEQUATE RDW 12.2 % (Normal) Range: 11.6-14.6 RED CELL MORPH SeeNote {NORMAL} (Normal) Comments: Result: NORM C+C SEGS 70 % (Normal) Range: 47-70 HCT 42.5 % (Normal) Range: 37-47 HGB 14.1 g/dL (Normal) Range: 12.0-16.0 MCH 29.2 pg (Normal) Range: 27.0-32.0 MCV 88.0 fL (Normal) Range: 81-99 RBC 4.83 {M/mm3} (Normal) Range: 4.2-5.4 WBC 5.7 K/mm3 (Normal) Range: 4.4-11.0 70-Ayc-683313:58 COMP METABOLIC A/G 0.9 {RATIO} (Normal) Range: 0.9-2.4 ALB 3.6 g/dL (Normal) Range: 3.4-5.0 ALK P 104 U/L (Normal) Range: 50-136 ALT 48 U/L (Normal) Range: 30-65 AST 30 U/L (Normal) Range: 15-37 BUN 11 mg/dL (Normal) Range: 7-18 BUN/CRE 15.7 {RATIO} (Normal) Range: 10-20 CA 9.2 mg/dL (Normal) Range: 8.5-10.1 CL 100 mmol/L (Normal) Range: 98-107 CO2 28.0 mmol/L (Normal) Range: 21.0-32.0 CREAT,SERUM 0.7 mg/dL (Normal) Range: 0.6-1.0 EST GFR 93 mL/min (Normal) EST GFR - AA 113 mL/min (Normal) GAP 10 (Normal) Range: 5-15 GLOB 4.2 g/dL (Normal) Range: 2.7-4.2 K 4.0 mmol/L (Normal) Range: 3.5-5.1 NA 138 mmol/L (Normal) Range: 136-145 T BILI 0.90 mg/dL (Normal) Range: 0.00-1.00 T PROT 7.8 g/dL (Normal) Range: 6.4-8.2 GLU 89 mg/dL (Normal) Range: 70-110 :58 FREE T3 3.0 pg/mL (Normal) Range: 2.18-3.98 03-Oiq-078135:58 LIPID CHOL 214 mg/dL (Abnormal) Comments: <200 mg/dL Desirable 200-240 mg/dL Borderline >240 mg/dL High Risk HDL 75 mg/dL (Normal) Comments: Reference Range HDL <40 mg/dL Low HDL Cholesterol HDL >or= 60 mg/dL High HDL Cholesterol LDL 128 mg/dL (Normal) Range: 0-130 TRIG 55 mg/dL (Normal) Comments: Serum Triglycerides Reference Interval Normal <150 mg/dL Borderline high 150 - 199 mg/dL High 200 - 499 mg/dL Very High > or = 500 mg/dL VLDL 11 mg/dL (Normal) Range: 5-40 :58 ROUTINE UA BILIRUBIN URINE SeeNote (Normal) Comments: Result: NEGATIVE CLARITY CLEAR (Normal) COLOR YELLOW (Normal) GLUCOSE, UR SeeNote (Normal) Comments: Result: NEGATIVE KETONE UR SeeNote mg/dL (Normal) Comments: Result: NEGATIVE LEUK ESTERASE SeeNote (Normal) Comments: Result: NEGATIVE NITRITE UR SeeNote (Normal) Comments: Result: NEGATIVE OCCULT BLOOD-UR SeeNote (Normal) Comments: Result: NEGATIVE pH UR 6.5 (Normal) Range: 5.0-8.0 PROT DIPSTX SeeNote (Normal) Comments: Result: NEGATIVE SP.GR. DIPSTX 1.010 (Normal) Range: 1.002-1.030 UROBILI 0.2 EU/dl (Normal) Range: 0.2 - 1.0 :58 T4 FREE DIRECT 1.5 ng/dL (Abnormal) Range: 0.76-1.146 :58 TSH 0.14 {uIU/mL} (Abnormal) Range: 0.358-3.74 :44 CBCD,SMEAR DIFF Comments: PATIENT HAD PEANUT BUTTER SANDWICH AND SWEET TEA PATIENT WANTS BLOOD DRAWN ANYWAY BAND 3 % (Normal) Range: 0-5 CELLS COUNTED 100 (Normal) HCT 38.7 % (Normal) Range: 37-47 HGB 13.1 g/dL (Normal) Range: 12.0-16.0 LYMPH 25 % (Normal) Range: 19-41 MCH 29.2 pg (Normal) Range: 27.0-32.0 MCHC 33.8 g/dL (Normal) Range: 32-36 MCV 86.3 fL (Normal) Range: 81-99 MONOCYTE 2 % (Normal) Range: 0-10 PLT 247 K/mm3 (Normal) Range: 150-450 PLT EST SeeNote (Normal) Comments: Result: ADEQUATE RBC 4.48 {M/mm3} (Normal) Range: 4.2-5.4 RDW 12.7 % (Normal) Range: 11.6-14.6 RED CELL MORPH SeeNote {NORMAL} (Normal) Comments: Result: NORM C+C SEGS 70 % (Normal) Range: 47-70 WBC 6.5 K/mm3 (Normal) Range: 4.4-11.0 :44 COMP METABOLIC Comments: PATIENT HAD PEANUT BUTTER SANDWICH AND SWEET TEA PATIENT WANTS BLOOD DRAWN ANYWAY A/G 1.0 {RATIO} (Normal) Range: 0.9-2.4 ALB 3.7 g/dL (Normal) Range: 3.4-5.0 ALK P 104 U/L (Normal) Range: 50-136 ALT 44 U/L (Normal) Range: 30-65 AST 22 U/L (Normal) Range: 15-37 BUN 11 mg/dL (Normal) Range: 7-18 BUN/CRE 13.8 {RATIO} (Normal) Range: 10-20 CA 8.9 mg/dL (Normal) Range: 8.5-10.1 CL 102 mmol/L (Normal) Range: 98-107 CO2 27.3 mmol/L (Normal) Range: 21.0-32.0 CREAT,SERUM 0.8 mg/dL (Normal) Range: 0.6-1.0 GAP 8 (Normal) Range: 5-15 GLOB 3.7 g/dL (Normal) Range: 2.7-4.2 GLU 78 mg/dL (Normal) Range: 70-110 K 3.8 mmol/L (Normal) Range: 3.5-5.1 NA 137 mmol/L (Normal) Range: 136-145 T BILI 0.81 mg/dL (Normal) Range: 0.00-1.00 T PROT 7.4 g/dL (Normal) Range: 6.4-8.2 :44 LIPID Comments: PATIENT HAD PEANUT BUTTER SANDWICH AND SWEET TEA PATIENT WANTS BLOOD DRAWN ANYWAY CHOL 187 mg/dL (Normal) Comments: <200 mg/dL Desirable 200-240 mg/dL Borderline >240 mg/dL High Risk HDL 64 mg/dL (Normal) Comments: Reference Range HDL <40 mg/dL Low HDL Cholesterol HDL >or= 60 mg/dL High HDL Cholesterol LDL 103 mg/dL (Normal) Range: 0-130 TRIG 99 mg/dL (Normal) Comments: Serum Triglycerides Reference Interval Normal <150 mg/dL Borderline high 150 - 199 mg/dL High 200 - 499 mg/dL Very High > or = 500 mg/dL VLDL 20 mg/dL (Normal) Range: 5-40 :44 ROUTINE UA Comments: PATIENT HAD PEANUT BUTTER SANDWICH AND SWEET TEA PATIENT WANTS BLOOD DRAWN ANYWAY BILIRUBIN URINE SeeNote (Normal) Comments: Result: NEGATIVE CLARITY CLEAR (Normal) COLOR YELLOW (Normal) GLUCOSE, UR SeeNote (Normal) Comments: Result: NEGATIVE KETONE UR SeeNote mg/dL (Normal) Comments: Result: NEGATIVE LEUK ESTERASE SeeNote (Normal) Comments: Result: NEGATIVE NITRITE UR SeeNote (Normal) Comments: Result: NEGATIVE OCCULT BLOOD-UR SeeNote (Normal) Comments: Result: NEGATIVE pH UR 5.5 (Normal) Range: 5.0-8.0 PROT DIPSTX SeeNote (Normal) Comments: Result: NEGATIVE SP.GR. DIPSTX 1.020 (Normal) Range: 1.002-1.030 UROBILI 0.2 EU/dl (Normal) Range: 0.2 - 1.0 :44 T3, FREE 67441 3.1 pg/mL (Normal) Comments: PATIENT HAD PEANUT BUTTER SANDWICH AND SWEET TEA PATIENT WANTS BLOOD DRAWN ANYWAY Range: 2.3-4.2 Comments: Performed At: [address] [id number] :44 T4 FREE,DIRECT 1.6 ng/dL (Normal) Comments: PATIENT HAD PEANUT BUTTER SANDWICH AND SWEET TEA PATIENT WANTS BLOOD DRAWN ANYWAY Range: 0.89-1.76 :44 TSH 0.02 {uIU/mL} (Abnormal) Comments: PATIENT HAD PEANUT BUTTER SANDWICH AND SWEET TEA PATIENT WANTS BLOOD DRAWN ANYWAY Range: 0.34-4.82 :39 PFLIP CHOL 207 mg/dL (Abnormal) Comments: <200 mg/dL Desirable 200-240 mg/dL Borderline >240 mg/dL High Risk HDL 69 mg/dL (Normal) Comments: Reference Range HDL <40 mg/dL Low HDL Cholesterol HDL >or= 60 mg/dL High HDL Cholesterol LDL 129 mg/dL (Normal) Range: 0-130 TRIG 45 mg/dL (Normal) Comments: Serum Triglycerides Reference Interval Normal <150 mg/dL Borderline high 150 - 199 mg/dL High 200 - 499 mg/dL Very High > or = 500 mg/dL VLDL 9 mg/dL (Normal) Range: 5-40 34-Avk-361951:33 CBC HCT 41.7 % (Normal) Range: 37-47 HGB 14.0 g/dL (Normal) Range: 12.0-16.0 MCH 29.5 pg (Normal) Range: 27.0-32.0 MCHC 33.6 g/dL (Normal) Range: 32-36 MCV 87.8 fL (Normal) Range: 81-99 PLT 252 K/mm3 (Normal) Range: 150-450 RBC 4.74 {M/mm3} (Normal) Range: 4.2-5.4 RDW 12.9 % (Normal) Range: 11.6-14.6 WBC 7.3 K/mm3 (Normal) Range: 4.4-11.0 :33 COMP METABOLIC A/G 1.0 {RATIO} (Normal) Range: 0.9-2.4 ALB 3.7 g/dL (Normal) Range: 3.4-5.0 ALK P 101 U/L (Normal) Range: 50-136 ALT 43 [iU]/L (Normal) Range: 30-65 AST 18 U/L (Normal) Range: 15-37 BUN 12 mg/dL (Normal) Range: 7-18 BUN/CRE 13.3 {RATIO} (Normal) Range: 10-20 CA 9.2 mg/dL (Normal) Range: 8.5-10.1 CL 105 mmol/L (Normal) Range: 98-107 CO2 31.0 mmol/L (Abnormal) Range: 22.0-29.0 CREAT,SERUM 0.9 mg/dL (Normal) Range: 0.6-1.0 GAP 2 (Abnormal) Range: 5-15 GLOB 3.8 g/dL (Abnormal) Range: 2.3-3.5 GLU 86 mg/dL (Normal) Range: 70-110 K 3.6 mmol/L (Normal) Range: 3.5-5.1 NA 138 mmol/L (Normal) Range: 136-145 T BILI 0.61 mg/dL (Normal) Range: 0.00-1.00 T PROT 7.5 g/dL (Normal) Range: 6.4-8.2 :33 T3, FREE 30763 3.3 pg/mL (Normal) Range: 2.3-4.2 Comments: Performed At: [facility] [place], [place] [id number] :33 T4 FREE 1974 1.60 ng/dL (Normal) Range: 0.61-1.76 :33 TSH 0.03 {uIU/mL} (Abnormal) Range: 0.34-4.82 Plan of Care Name Dates Details Instructions Osteoarthritis of both knees, unspecified osteoarthritis type : Knee Injections Indication: Osteoarthritis of both knees, unspecified osteoarthritis type Sacral pain : Follow up if no improvement or if symptoms worsen Indication: Sacral pain Hypothyroidism : Eprescribed prescriptions (G8553) Indication: Hypothyroidism Osteoarthritis of knees, bilateral : Euflexxa injection Indication: Osteoarthritis of knees, bilateral Unspecified osteoarthritis, unspecified site : Euflexxa injection Indication: Unspecified osteoarthritis, unspecified site Adenoma : Follow up in 2 weeks Indication: Adenoma Osteoarthritis of knees, bilateral : Euflexxa injection Indication: Osteoarthritis of knees, bilateral Acute pharyngitis : *URI Treatment Indication: Acute pharyngitis Acute pharyngitis : *URI Symptoms Indication: Acute pharyngitis Acute pharyngitis : *Antibiotic Usage Education - Female Indication: Acute pharyngitis Well woman exam : Colon Cancer Screening Indication: Well woman exam Well woman exam : Self Breast Exam Education Indication: Well woman exam Well woman exam : Well Female Maintenance (KF) Indication: Well woman exam Well woman exam : Self Breast Exam Education Indication: Well woman exam Well woman exam : Pap/Pelvic/Bimanual/Rectal/Breast Exam was done. 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)Indication: Hurthle cell adenoma On: 40-Zcj-325047:15 Request T3, FREE (TRIDOTHYRONINE) (14514)Indication: Hurthle cell adenoma On: :15 Request T4, FREE (THYROXINE) (62902)Indication: Hurthle cell adenoma On: 84-Vlm-497268:15 Request THYROGLOBULIN (09040)Indication: Hurthle cell adenoma On: 06-Sei-468573:14 Request HEPATITIS C ANTIBODY (59779)Indication: Need for hepatitis B screening test On: :01 Request Metabolic Panel, Comprehensive (35286)Indication: Hypothyroidism On: 40-Qih-998218:13 Request T4, FREE (THYROXINE) (56909)Indication: Hypothyroidism On: :08 Request T3, FREE (TRIDOTHYRONINE) (48775)Indication: Hypothyroidism On: 42-Wdw-453172:08 Request C-Reactive Protein (41976)Indication: Chest pain, atypical On: 69-Cwz-930093:21 Request Sed Rate Erythrocyte (65543)Indication: Chest pain, atypical On: 64-Rfc-767351:21 Request CBC (Auto) (02179)Indication: Chest pain, atypical On: :21 Request Metabolic Panel, Comprehensive (60028)Indication: Chest pain, atypical On: : Request Troponin I (01557)Indication: Chest pain, atypical On: : Request CPK MB FRACTION (18762)Indication: Chest pain, atypical On: : Request CREATINE KINASE TOTAL (07822)Indication: Chest pain, atypical On: : Request T4, FREE (THYROXINE) (34530)Indication: Hypothyroidism On: :51 Request Comments: re check in 8 weeks T3, FREE (TRIDOTHYRONINE) (93899)Indication: Hypothyroidism On: :51 Request Comments: recheck in 8 weeks TSH (27808)Indication: Hypothyroidism On: :51 Request Comments: recheck in 8 weeks HEPATIC FUNCTION PANEL (97453)Indication: Abnormal finding of blood chemistry, unspecified On: 31-Woc-65217:07 Request Comments: 6 weeks CALCIFIDIOL (73036) VIT D 25Indication: Vitamin D deficiency, unspecified On: 93-Dda-99234:33 Request CALCIFIDIOL (23501) VIT D 25Indication: Vitamin D deficiency, unspecified On: :58 Request C-REACT PROT HIGH SENS(hsCRP) (50228)Indication: Arthralgia On: :58 Request METABOLIC PANEL, BASIC (99658)Indication: Impaired fasting glucose On: 36-Anx-565514:00 Request LIPID PANEL (25509)Indication: Hypothyroidism On: 40-Bgo-011269:10 Request METABOLIC PANEL, COMPREHENSIVE (99375)Indication: Hypothyroidism On: 13-Wiv-682399:10 Request CBC & PLATELETS (AUTO) (89063)Indication: Hypothyroidism On: :09 Request TSH (THYROID STIMULATING HORMONE) (42147)Indication: Hypothyroidism On: 68-Lbt-332006:09 Request CALCIFEDIOL (43621)Indication: Hypothyroidism On: :09 Request Thin prep Pap (51503)Indication: Well woman exam On: 8-Pti-580793:15 Request Planned Encounters Medical; JERAMY Pre Wellness Exam (DB Nurse) - On: 28-Sep-2018 8:00 [facility] JORDAN Webster; JERAMY Wellness Exam (Doctor) - On: 15-Oct-2018 13:00 [facility] Yara Shi MD, MD, Dana M Planned Procedures VENOUS DOPPLER LOWER EXTREMITY On: 05-Oct-2017 Intent (86577)By: Yara Shi MD Comments: venous doppler of right lower extremity Yara Shi MD DIAGNOSTIC BILATERAL MAMMOGRAM On: 18-May-2017 Intent (74486)By: Yara Shi MD, MD, Dana M Breast Ultrasound - LeftBy: On: 18-May-2017 Intent Yara Shi MD, MD, Dana M DRAIN/INJECT MAJOR JOINT OR BURSA On: 03-Feb-2017 Intent ()By: Yara Shi MD Comments: lot:[id number]:4-13-6554uit:intra articular dose:2ml given by:Dr. Jonathan BOYD signedER, BIOMEDICAL MANAGER injection #3 Bilateral Knees Yara Shi MD DRAIN/INJECT MAJOR JOINT OR BURSA On: 27-Jan-2017 Intent ()By: Yara Shi MD Comments: lot:[id number]:02-01-18rte:intra articulardose:2ml given by:Dr. Mi Figueroa, BIOMEDICAL MANAGER injection #2 Bilateral knees Yara Shi MD DRAIN/INJECT MAJOR JOINT OR BURSA On: 16-Jan-2017 Intent ()By: Yara Shi MD Comments: lot:[id number]:02-01-18rte:intra articular dose: 2ml given by:Dr. Jonathan hawkinsER, BIOMEDICAL MANAGER Yara Shi MD Kenalog Injection, 10 mgm On: 09-Jan-2017 Intent (J3301)By: Yara Shi MD, MD, Dana M Radiology - Knee - Left - Weight On: 09-Jan-2017 Intent BearingBy: Yara Shi MD, MD, Dana M Radiology - Knee - Right - Weight On: 09-Jan-2017 Intent BearingBy: Yara Shi MD, MD, Dana M MRI OF BRAIN WITH AND WITHOUT On: 20-Nov-2016 Intent CONTRAST (40403)By: Jonathan EVANS, Comments: rule out MS rule ut out infarct look at inner ear. if can what does right maxillary sinus look like Yara Oates MD EKG (55350)By: Yara Shi MD On: 20-Nov-2016 Intent Yara Coelho MD Radiology - ChestBy: Jonathan EVANS, On: 06-Jun-2016 Intent Yara Oates MD DEXA SCAN AXIAL SKELETON On: 30-Jan-2016 Intent (79341)By: Yara Shi MD, MD, Dana M MAMMOGRAM, SCREENING, BOTH BREAST On: 30-Jan-2016 Intent (14540)By: Yara Shi MD, MD, Dana M Radiology - Sacrum/CoccyxBy: On: 03-Apr-2015 Intent Cody MALONE Reyna MAMMOGRAM, SCREENING, BOTH BREAST On: 25-Dec-2014 Intent (05579)By: Yara Shi MD, MD, Dana M MAMMOGRAM, SCREENING, BOTH BREAST On: 02-Dec-2013 Intent ()By: Yara Shi MD, MD, Dana M DRAIN/INJECT MAJOR JOINT OR BURSA On: 24-Jan-2013 Intent ()By: Yara Shi MD, MD, Dana M DRAIN/INJECT MAJOR JOINT OR BURSA On: 14-Jan-2013 Intent ()By: JORDAN Webster Comments: Lot #:[id number] date:mount given:2ml Route: intra articular Site given:left knee Given by: Dr. Chaujection #1 MAMMOGRAM, SCREENING, BOTH On: 07-Jan-2013 Intent BREASTS (85450)By: Cody MALONE, Reyna EKG (60438)By: Julius ANDRADE, On: 07-Jan-2013 Intent Diana Comments: sinus rhythm MAMMOGRAM, SCREENING, BOTH On: 05-Jul-2012 Intent BREASTS (46993)By: Yara Shi MD, MD, Dana M Eprescribed prescriptions On: 05-Jul-2012 Intent (G8553)By: Shanna Welsh LPN DRAIN/INJECT MAJOR JOINT OR BURSA On: 02-Mar-2012 Intent (78171)By: Yara Shi MD, MD, Dana M IMMUNIZ ADMNIN, 1 VAC, SNGL/COMBO On: 02-Mar-2012 Intent ([id number])By: Shanna Welsh LPN Comments: declined FLU VAC, SPLIT, >3 YEARS, On: 02-Mar-2012 Intent INTRAMUSC (17787)By: Shanna Welsh LPN Eprescribed prescriptions On: 02-Mar-2012 Intent (G8553)By: Shanna Welsh LPN EKG (52675)By: Yara Shi MD On: 01-Jul-2011 Intent Yara Coelho MD Comments: ekg no change TDAP VACCINE >7 IM (84799)By: On: 01-Jul-2011 Intent Yara Shi MD, MD, Comments: Lot:[id number]:04/24/13Amt:prefilledRoute:IMSite:left deltGiven By: LUPE Aguillon MAMMOGRAM, SCREENING, BOTH On: 01-Jul-2011 Intent BREASTS (36158)By: Yara Shi MD, MD, Dana M Aerosol Treatment (01590)By: On: 27-May-2011 Intent [place] 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, 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 SPECIMEN HNDLNG/TRNSPRT, OFFC > On: 27-May-2011 Intent LAB (02760)By: Diana Madrid LPN MAMMOGRAM, SCREENING, BOTH On: 06-Dec-2007 Intent BREASTS (86521)By: Yara Shi MD, MD, Dana M DXA, BONE DENSITY, AXIAL SKELETON On: 12-Jun-2006 Intent (51099)By: Yara Shi MD, MD, Dana M MAMMOGRAM, SCREENING, BOTH On: 12-Jun-2006 Intent BREASTS (16211)By: Yara Shi MDzzi MD, Yara Arana Planned Medications INJECTION, TRIAMCINOLONE ACETONIDE, NOT OTHERWISE SPECIFIED, 10 MG Ordered: 09-Jan-2017 Pending Jonathan EVANS, Yara Shi MD, Yara Arana Instructions Name Dates Details BMI 31.0-31.9,adult : How to access health information online Indication: BMI 31.0-31.9,adult BMI 31.0-31.9,adult : How to access health information online - Detail Indication: BMI 31.0-31.9,adult BMI 31.0-31.9,adult : Patient Instructions Indication: BMI 31.0-31.9,adult Breast nodule : How to access health information online Indication: Breast nodule Breast nodule : How to access health information online - Detail Indication: Breast nodule Breast nodule : Patient Instructions Indication: Breast nodule BMI 28.0-28.9,adult : How to access health information online Indication: BMI 28.0-28.9,adult BMI 28.0-28.9,adult : How to access health information online - Detail Indication: BMI 28.0-28.9,adult BMI 28.0-28.9,adult : Patient Instructions Indication: BMI 28.0-28.9,adult Osteoarthritis of both knees, unspecified osteoarthritis type : How to access health information online Indication: Osteoarthritis of both knees, unspecified osteoarthritis type Osteoarthritis of both knees, unspecified osteoarthritis type : How to access health information online - Detail Indication: Osteoarthritis of both knees, unspecified osteoarthritis type Osteoarthritis of both knees, unspecified osteoarthritis type : Patient Instructions Indication: Osteoarthritis of both knees, unspecified osteoarthritis type Osteoarthritis of both knees, unspecified osteoarthritis type : How to access health information online Indication: Osteoarthritis of both knees, unspecified osteoarthritis type Osteoarthritis of both knees, unspecified osteoarthritis type : How to access health information online - Detail Indication: Osteoarthritis of both knees, unspecified osteoarthritis type Osteoarthritis of both knees, unspecified osteoarthritis type : Patient Instructions Indication: Osteoarthritis of both knees, unspecified osteoarthritis type Osteoarthritis of both knees, unspecified osteoarthritis type : How to access health information online Indication: Osteoarthritis of both knees, unspecified osteoarthritis type Osteoarthritis of both knees, unspecified osteoarthritis type : How to access health information online - Detail Indication: Osteoarthritis of both knees, unspecified osteoarthritis type Osteoarthritis of both knees, unspecified osteoarthritis type : Patient Instructions Indication: Osteoarthritis of both knees, unspecified osteoarthritis type Current nonsmoker (Renamed from Current non-smoker) : How to access health information online Indication: Current nonsmoker (Renamed from Current non-smoker) Current nonsmoker (Renamed from Current non-smoker) : How to access health information online - Detail Indication: Current nonsmoker (Renamed from Current non-smoker) Current nonsmoker (Renamed from Current non-smoker) : Patient Instructions Indication: Current nonsmoker (Renamed from Current non-smoker) BMI 26.0-26.9,adult : How to access health information online Indication: BMI 26.0-26.9,adult BMI 26.0-26.9,adult : How to access health information online - Detail Indication: BMI 26.0-26.9,adult BMI 26.0-26.9,adult : Patient Instructions Indication: BMI 26.0-26.9,adult BMI 26.0-26.9,adult : How to access health information online Indication: BMI 26.0-26.9,adult BMI 26.0-26.9,adult : How to access health information online - Detail Indication: BMI 26.0-26.9,adult BMI 26.0-26.9,adult : Patient Instructions Indication: BMI 26.0-26.9,adult Sore throat : How to access health information online Indication: Sore throat Sore throat : How to access health information online - Detail Indication: Sore throat Sore throat : Patient Instructions Indication: Sore throat Flank pain : How to access health information online Indication: Flank pain Flank pain : How to access health information online - Detail Indication: Flank pain Flank pain : Patient Instructions Indication: Flank pain Coccygeal pain, chronic : How to access health information online Indication: Coccygeal pain, chronic Coccygeal pain, chronic : How to access health information online - Detail Indication: Coccygeal pain, chronic Coccygeal pain, chronic : Patient Instructions Indication: Coccygeal pain, chronic Sacral pain : How to access health information online Indication: Sacral pain Sacral pain : How to access health information online - Detail Indication: Sacral pain Sacral pain : Patient Instructions Indication: Sacral pain Hypothyroidism : How to access health information online - Detail Indication: Hypothyroidism Hypothyroidism : Patient Instructions Indication: Hypothyroidism Fatigue : Patient Instructions Indication: Fatigue Impaired fasting glucose : Patient Instructions Indication: Impaired fasting glucose GERD (gastroesophageal reflux disease) : Patient Instructions Indication: GERD (gastroesophageal reflux disease) Encounters Office Visit On: 15-Jun-2018 12:31 Encounter Reason: Follow up for chronic medical issues - The patient feels well with minor complaints and has decreased energy level. Patient has been compliant with instructions. Current medication use: no side effects End: 15-Jun-2018 13:30 and compliant with dosing regimen. Patient sleeps 7 hours per night. Impact of disease: emotional impact-mild. Nutrition: balanced diet and supplemental vitamins. The medical issues the patient is follo wing up for include cardiac issues, gastric reflux, high cholesterol, hypothyroid, osteoarthritis and other (Vitamin D def., Hurthle cell).Encounter Diagnosis: BMI 31.0-31.9,adult, Current nonsmoker (Renamed from Current non-smoker), Low back pain without sciatica, unspecified back pain laterality, Stress reaction, History of shingles, Postmenopausal state, Vitamin D deficiency, unspecified, Arthralgia, Osteoarthritis of both knees, unspecified osteoarthritis type, Night sweat, Unspecified osteoarthritis, unspecified site, Sacral pain, History of melanoma, Salcido's cyst, right, Pain of right calf, Hypothyroidism, Hurthle cell adenoma, Family history of malignant neoplasm of gastrointestinal tract (V16.0), GERD (gastroesophageal reflux disease), Obesity (278.00), Chest pain, atypical, Herpes zoster without complication, BMI 26.0-26.9,adult, BMI 28.0-28.9,adult, Hematuria [facility] Lab Order On: 03-Jun-2018 10:26 Encounter Diagnosis: Hypothyroidism End: 03-Jun-2018 10:28 [facility] Office Visit On: 05-Oct-2017 11:49 Encounter Diagnosis: Pain of right calf, Salcido's cyst, right End: 05-Oct-2017 15:57 [facility] Phone Encounter On: 05-Oct-2017 9:23 Encounter Diagnosis: Pain of right calf End: 05-Oct-2017 9:30 [facility] Office Visit On: 23-Jun-2017 12:59 Encounter Reason: Follow up acute care visit - The patient feeling better since last seen and improving. Patient has been compliant with instructions. Current medication use: no side effects, compliant with dosing regime End: 23-Jun-2017 13:49 n and considered effective by patient. Patient sleeps 7 hours per night. Impact of disease: emotional impact-mild. Nutrition: balanced diet and supplemental vitamins. The medical issues the patient is f ollowing up for include other (right breast mass).Encounter Diagnosis: BMI 28.0- 28.9,adult, Current nonsmoker (Renamed from Current non-smoker), Breast nodule [facility] Office Visit On: 18-May-2017 10:49 Encounter Reason: Physical female exam - Last seen between 3-6 months ago. General health: feels well with minor complaints and has decreased energy level. The patient's appetite is normal. Nutrition: normal/adequate. Ex End: 18-May-2017 21:15 ercises 0 days per week. Sleeps on average 7 hours per night. Normal bowel and bladder habits. Safety measures include appropriate use of safety belts and home smoke detectors. Current emotional problem s include anxiety and sleep disturbances. screening, colonoscopy (), screening, mammography () and screening, Pap smear (total hysterectomy).Encounter Diagnosis: BMI 28.0-28.9,adult, Current nonsmoker (Renamed from Current non-smoker), Annual Medicare Physical WITH abnormal findings (Renamed from Encounter for general adult medical examination with abnormal findings), History of melanoma, History of shingles, Obesity (278.00), Vitamin D deficiency, unspecified, Muscle spasm, Arthralgia, Hurthle cell adenoma, Postmenopausal (Renamed from Postmenopausal status), Fatigue, GERD (gastroesophageal reflux disease), Unspecified osteoarthritis, unspecified site, Family history of malignant neoplasm of gastrointestinal tract (V16.0), Hypothyroidism, Stress reaction, Night sweat, Osteoarthritis of both knees, unspecified osteoarthritis type, Sacral pain, Postmenopausal state, Need for hepatitis B screening test, Breast nodule [facility] Lab Order On: 07-May-2017 13:10 Encounter Diagnosis: Hypothyroidism End: 07-May-2017 13:14 [facility] Office Visit On: 05-Mar-2017 11:42 Encounter Reason: Follow up for chronic medical issues - Patient has been compliant with instructions. Current medication use: no side effects. Patient sleeps 7 (use ambien once every 3 nights.) hours per night. Impact o End: 05-Mar-2017 12:22 f disease: no overall impact and no emotional impact. Nutrition: balanced diet. The medical issues the patient is following up for include All identified problems below. 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.Encounter Diagnosis: History of melanoma, Stress reaction, Current nonsmoker (Renamed from Current non-smoker), Unspecified osteoarthritis, unspecified site, Chest pain, atypical, Syncope, Vitamin D deficiency, unspecified, Obesity (278.00), Muscle spasm, Arthralgia, Postmenopausal (Renamed from Postmenopausal status), Coccygeal pain, chronic, Headache disorder, Hurthle cell adenoma, Bronchitis, POSTMENOPAUSAL STATE, Fatigue, History of shingles, Need for hepatitis B screening test, GERD (gastroesophageal reflux disease), Hematuria, Abnormal finding of blood chemistry, unspecified, BMI 26.0-26.9,adult, Osteoarthritis of both knees, unspecified osteoarthritis type, Night sweat, Flank pain, Herpes zoster without complication, Family history of malignant neoplasm of gastrointestinal tract (V16.0), Hypothyroidism, Annual Medicare Physical WITH abnormal findings (Renamed from Encounter for general adult medical examination with abnormal findings) [facility] Office Visit On: 03-Feb-2017 7:32 Encounter Reason: Injections - The medication the patient is here to receive is other (Euflexxa injection #3 Bilateral knees).Encounter Diagnosis: Osteoarthritis of both knees, unspecified osteoarthritis type, BMI 26.0-26.9,adult, End: 03-Feb-2017 16:19 GERD (gastroesophageal reflux disease) [facility] Office Visit On: 27-Jan-2017 9:33 Encounter Reason: Injections - The medication the patient is here to receive is other (bilateral knees euflexxa injection # 2).Encounter Diagnosis: Osteoarthritis of both knees, unspecified osteoarthritis type, End: 27-Jan-2017 10:33 Current nonsmoker (Renamed from Current non-smoker), BMI 26.0-26.9,adult, Vitamin D deficiency, unspecified, Hypothyroidism, History of melanoma, Unspecified osteoarthritis, unspecified site, Obesity (278.00), Postmenopausal (Renamed from Postmenopausal status), Arthralgia, Muscle spasm, GERD (gastroesophageal reflux disease), Coccygeal pain, chronic, Hurthle cell adenoma, Headache disorder, History of shingles, Fatigue, Family history of malignant neoplasm of gastrointestinal tract (V16.0), Herpes zoster without complication, Abnormal finding of blood chemistry, unspecified, Hematuria, POSTMENOPAUSAL STATE, Need for hepatitis B screening test, Bronchitis, Night sweat, Syncope, Chest pain, atypical, Flank pain [facility] Office Visit On: 16-Jan-2017 6:49 Encounter Reason: Injections - The medication the patient is here to receive is other (Eufflexa).Encounter Diagnosis: Osteoarthritis of both knees, unspecified osteoarthritis type, Current nonsmoker (Renamed from Current non-smoker), End: 16-Jan-2017 10:09 BMI 26.0-26.9,adult [facility] Office Visit On: 09-Jan-2017 12:26 Encounter Diagnosis: BMI 26.0-26.9,adult, Current nonsmoker (Renamed from Current non-smoker), Knee pain (719.46) End: 09-Jan-2017 13:13 [facility] Office Visit On: 18-Dec-2016 11:34 Encounter Reason: Follow up acute care visit - The patient feeling better since last seen. Patient has been compliant with instructions. Current medication use: no side effects and compliant with dosing regimen. Patient End: 18-Dec-2016 12:31 sleeps 6 hours per night. Impact of disease: emotional impact-moderate. Nutrition: balanced diet and supplemental vitamins. The medical issues the patient is following up for include other (anxiety, chest pain).Encounter Diagnosis: BMI 26.0-26.9,adult, Current nonsmoker (Renamed from Current non-smoker), Headache disorder, Stress reaction [facility] Office Visit On: 20-Nov-2016 13:02 Encounter Diagnosis: BMI 26.0-26.9,adult, Current nonsmoker (Renamed from Current non-smoker), Syncope, Stress reaction, Headache disorder, Lightheaded, Chest pain, atypical End: 24-Nov-2016 9:53 [facility] Lab Order On: 14-Jul-2016 10:38 Encounter Diagnosis: Hypothyroidism End: 14-Jul-2016 11:52 [facility] Office Visit On: 08-Jul-2016 15:20 Encounter Reason: Sore Throat - Symptoms include sore throat and swollen glands.Encounter Diagnosis: Sore throat, Current nonsmoker (Renamed from Current non-smoker), Arthralgia, Frequent infections End: 10-Jul-2016 7:12 [facility] Phone Encounter On: 06-Jun-2016 14:13 Encounter Diagnosis: Chest pain at rest End: 06-Jun-2016 14:21 [facility] Office Visit On: 27-May-2016 10:14 Encounter Diagnosis: Flank pain, Current nonsmoker (Renamed from Current non-smoker), Herpes zoster without complication, Acute bronchitis, bacterial End: 27-May-2016 13:10 [facility] Refill Request On: 19-May-2016 15:53 Encounter Diagnosis: Bronchitis End: 19-May-2016 15:55 [facility] Office Visit On: 03-Mar-2016 13:05 Encounter Reason: Follow up, Diagnostic Procedure Results - Diagnostic tests include other (bone density and mammogram ). Current symptoms include other (aches and pains ).Encounter Diagnosis: Coccygeal pain, chronic, End: 03-Mar-2016 13:43 Current nonsmoker (Renamed from Current non-smoker), Night sweat [facility] Office Visit On: 30-Jan-2016 7:52 Encounter Reason: Physical female exam - General health: feels well with minor complaints (still have coccyx pain, but seems better after US therapy but only last a few hours....It really bothers because she has to sit a End: 04-Feb-2016 13:50 ll the time. Thinking about getting a stand up desk). The patient's appetite is normal. Nutrition: normal/adequate. Exercises 0 (she is working 16 hours a day right now, but as a normal she does work) days per week. Sleeps on average 7 hours per night. Elimination problems include urinary frequency (only doing during coughing 3x or more). Safety measures include appropriate use of safety belts and ho me smoke detectors , but do not include appropriate use of helmets, counseling regarding safe sex/HIV or counseling regarding substance abuse. Current emotional problems include none (stress reaction). screening, colonoscopy, screening, mammography, screening, Pap smear (total hy) and screening, visual acuity.Encounter Diagnosis: Annual Medicare Physical WITH abnormal findings (Renamed from Encounter for general adult medical ex amination with abnormal findings), GERD (gastroesophageal reflux disease), Family history of malignant neoplasm of gastrointestinal tract (V16.0), Adenoma, Obesity (278.00), Hurthle cell adenoma, Vitamin D deficiency, unspecified, Arthralgia, Fatigue , Osteoarthrosis, not specified whether generalized/localized, lower leg, Flank pain, Coccygeal pain, chronic, Stress reaction, Chest pain at rest, Well woman exam, POSTMENOPAUSAL STATE, Hypothyroidism, Current nonsmoker (Renamed from Current non-smoker), Sacral pain, Family history of other endocrine and metabolic diseases (V18.1), Abnormal finding of blood chemistry, unspecified, Unspecified osteoarthritis, unspecified site, HERPES SIMPLEX, UNCOMPLICATED (054.9), History of shingles, Muscle spasm, Need for hepatitis B screening test, History of melanoma, Encounter for screening mammogram for breast cancer (Renamed from Encounter for screening mammogram f or malignant neoplasm of breast), Postmenopausal (Renamed from Postmenopausal status), Knee pain (719.46), Night sweat, Hematuria [facility] Office Visit On: 25-Dec-2015 12:12 Encounter Reason: Follow up for chronic medical issues - The patient feels well with minor complaints and has decreased energy level. Patient has been compliant with instructions. Current medication use: no side effects, End: 27-Dec-2015 10:13 compliant with dosing regimen and considered effective by patient. Patient sleeps 7 hours per night. Impact of disease: emotional impact-mild. Nutrition: balanced diet and supplemental vitamins. The me dical issues the patient is following up for include gastric reflux, hypothyroid, osteoarthritis and other (vitamin d def., Hurthle cell adenoma).Encounter Diagnosis: Flank pain, Sacral pain, Current nonsmoker (Renamed from Current non-smoker), Well woman exam, Coccygeal pain, chronic, Chest pain at rest, Stress reaction [facility] Office Visit On: 04-Apr-2015 8:24 Encounter Reason: Sacral Pain - Pain relieved after changing positionEncounter Diagnosis: Sacral pain End: 04-Apr-2015 9:02 [facility] Annotation/Addendum On: 03-Apr-2015 15:51 Encounter Diagnosis: Sacral pain End: 03-Apr-2015 15:52 [facility] Office Visit On: 25-Dec-2014 13:08 Encounter Reason: Follow up for chronic medical issues - The patient feels well with no complaints, has good energy level and is sleeping well. Patient has been compliant with instructions. Current medication use: no xiao End: 25-Dec-2014 13:52 e effects, compliant with dosing regimen and considered effective by patient. Patient sleeps 7 hours per night. Impact of disease: emotional impact-mild. Nutrition: balanced diet and supplemental vitami ns. The medical issues the patient is following up for include hypothyroid, osteoarthritis and other (menopause, vitamin d def., hx. of producing adenoma, elevated lft's ).Encounter Diagnosis: Hypothyroidism (244.9), DEFICIENCY, VITAMIN D NOS (268.9), POSTMENOPAUSAL STATE, Adenoma, BENIGN NEOPLASM OF THYROID GLANDS (226.), Arthralgia (719.40), Well Women Exam (V72.31)( Pap, Mammo, Routine Female and Dexa), Family history of other endocrine and metabolic diseases (V18.1), Osteoarthritis, Unspecified (715.90), osteoarthrosis, lower leg (715.36), Stress Reaction (308.4), GERD (530.81), Fatigue (780.79), Family history of malignant neoplasm of gastrointestinal tract (V16.0), Obesity (278.00), Elevated LFT (794.8), HERPES SIMPLEX, UNCOMPLICATED (054.9) [facility] Lab Order On: 21-Dec-2014 8:50 Encounter Diagnosis: Hypothyroidism (244.9), DEFICIENCY, VITAMIN D NOS (268.9), Fatigue (780.79) End: 21-Dec-2014 8:58 [facility] Office Visit On: 02-Dec-2013 7:25 Encounter Diagnosis: POSTMENOPAUSAL STATE, DEFICIENCY, VITAMIN D NOS (268.9), Hypothyroidism (244.9), Febrile illness, acute, Stress Reaction (308.4), Well Women Exam (V72.31)( Pap, Mammo, Routine Female and Dexa), GERD (530.81), End: 06-Dec-2013 7:44 Family history of other endocrine and metabolic diseases (V18.1), Osteoarthritis, Unspecified (715.90), Adenoma, BENIGN NEOPLASM OF THYROID GLANDS (226.), Arthralgia (719.40), osteoarthrosis, lower leg (715.36), Family history of malignant neoplasm of gastrointestinal tract (V16.0), Obesity (278.00), Fatigue (780.79), Elevated LFT (794.8) [facility] Phone Encounter On: 01-Dec-2013 12:03 Encounter Diagnosis: Hypothyroidism (244.9), Impaired fasting glucose (790.21) End: 01-Dec-2013 12:08 [facility] Office Visit On: 28-Jan-2013 6:29 Encounter Reason: Injections - The medication the patient is here to receive is other (euflexxa left knee ).Encounter Diagnosis: osteoarthrosis, lower leg (715.36) End: 30-Jan-2013 20:01 [facility] Office Visit On: 21-Jan-2013 8:44 Encounter Reason: Follow up tests - Diagnostic tests include mammography. Date: (01/07/13).Encounter Diagnosis: osteoarthrosis, lower leg (715.36) End: 24-Jan-2013 8:24 [facility] Office Visit On: 14-Jan-2013 7:40 Encounter Reason: Injections - The medication the patient is here to receive is other (euflexxa left knee #1 ).Encounter Diagnosis: Osteoarthritis, Unspecified (715.90), Arthralgia (719.40), DEFICIENCY, VITAMIN D NOS (268.9), Hypothyroidism (244.9) End: 14-Jan-2013 8:03 , BENIGN NEOPLASM OF THYROID GLANDS (226.) [facility] Office Visit On: 07-Jan-2013 8:58 Encounter Reason: Muscle pain - The onset of the muscle pain has been sudden and has been occurring in a persistent pattern for months. The course has been increasing. The muscle pain is described as a moderate dull achi End: 07-Jan-2013 10:05 ng. The muscle pain is located over the entire body. The symptoms have no aggravating factors. The symptoms have no relieving factors. The symptoms have been associated with arthralgia, fatigue, fever ( chills) and headache, while the symptoms have not been associated with cough., [ADDITIONAL REASON] Malaise - The last clinic visit was 3 month(s) ago. Encounter Diagnosis: Fatigue (780.79), Muscle ache (729.1), Adenoma (229.9), Arthralgia (719.40) [facility] Refill Request On: 06-Jul-2012 10:05 Encounter Diagnosis: DEFICIENCY, VITAMIN D NOS (268.9) End: 06-Jul-2012 10:09 [facility] Office Visit On: 05-Jul-2012 11:49 Encounter Reason: Follow up for chronic medical issues - The patient feels well with minor complaints, has good energy level and is sleeping well. Patient has been compliant with instructions. Current medication use: no End: 05-Jul-2012 12:22 side effects, compliant with dosing regimen and considered effective by patient. Patient sleeps 8 hours per night. Impact of disease: emotional impact-mild. Nutrition: balanced diet and supplemental vit amins. 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36), Grieving Reaction (309.0), End: 02-Mar-2012 12:19 GERD (530.81), HERPES ZOSTER WITH OTHER NERVOUS SYSTEM COMPLICATIONS, OTHER (053.19) [facility] Office Visit On: 01-Jul-2011 15:27 Encounter Reason: Follow up for chronic medical issues - The patient feels well with minor complaints, has good energy level and is sleeping well. Patient has been compliant with instructions. Current medication use: no End: 01-Jul-2011 16:34 side effects, compliant with dosing regimen and considered effective by patient. Patient sleeps 8 hours per night. Impact of disease: emotional impact-mild. Nutrition: balanced diet and supplemental vit amins. The medical issues the patient is following up for include gastric reflux, hypothyroid and other (obesity, menopause ).Encounter Diagnosis: Hypothyroidism (244.9), POSTMENOPAUSAL STATE, Obesity (278.00), GERD (530.81), Well Women Exam (V72.31)( Pap, Mammo, Routine Female and Dexa), Impaired fasting glucose (790.21) [facility] Phone Encounter On: 17-Jun-2011 14:16 Encounter Diagnosis: BENIGN NEOPLASM OF THYROID GLANDS (226.) End: 17-Jun-2011 14:17 [facility] Office Visit On: 27-May-2011 10:14 Encounter Reason: Sore Throat - The symptoms are left sided. The patient describes the pain as burning. Onset was 4 day(s) ago. The symptoms occur constantly. The patient describes this as moderate in severity and worsen End: 27-May-2011 12:34 ing. Associated symptoms include hoarseness and cough (unprooductive), while associated symptoms do not include headache, neck stiffness, ear pain or nausea.Encounter Diagnosis: Wheezing (786.07), PHARYNGITIS, ACUTE (462.), Cough (786.2) [facility] Office Visit On: 20-Jun-2010 9:14 Encounter Reason: Follow up for chronic medical issues - The patient feels well with minor complaints, has good energy level and is sleeping well. Patient has been compliant with instructions. Current medication use: no End: 20-Jun-2010 10:28 side effects, compliant with dosing regimen and considered effective by patient. Patient sleeps 7 hours per night. Impact of disease: emotional impact-mild. Nutrition: balanced diet and supplemental vit amins. The medical issues the patient is following up for include gastric reflux, hypothyroid and other (obesity, menopause ).Encounter Diagnosis: Lumbago (724.2), Family history of other endocrine and metabolic diseases (V18.1), Family history of malignant neoplasm of gastrointestinal tract (V16.0), Fatigue (780.79), Obesity (278.00), Hypothyroidism (244.9), BENIGN NEOPLASM OF THYROID GLANDS (226.), GERD (530.81), Sinusitis,acute (461.9), Knee pain (719.46), HERPES SIMPLEX, UNCOMPLICATED (054.9), DEFICIENCY, VITAMIN D NOS (268.9) [facility] Phone Encounter On: 06-Jun-2010 14:07 Encounter Diagnosis: Hypothyroidism (244.9) End: 06-Jun-2010 14:10 [facility] Office Visit On: 26-Feb-2009 10:12 Encounter Reason: Physical female exam - Last seen between 6-12 months ago. General health: feels well with minor complaints ,has decreased energy level and is sleeping well. The patient's appetite is normal. Nutrition: End: 26-Feb-2009 17:12 normal/adequate. Exercises 2 days per week. Sleeps on average 8 hours per night. Normal bowel and bladder habits. Safety measures include appropriate use of safety belts and home smoke detectors. Curren t emotional problems include anxiety. screening, complete skin exam (September 2008 ) ,screening, mammography (scheduled for ) ,screening, Pap smear (has no cervix, complete hysterectomy ) and screening, visual acuity (07-17). Encounter Diagnosis: Hypothyroidism (244.9), BENIGN NEOPLASM OF THYROID GLANDS (226.), GERD (530.81), Family history of malignant neoplasm of gastrointestinal tract (V16.0), Family history of other endocrine and metabolic diseases (V18.1), Obesity (278.00), Fatigue (780.79), Stress Reaction (308.4), Well Women Exam (V72.31)( Pap, Mammo, Routine Female and Dexa), Knee pain (719.46) [facility] Office Visit On: 06-Dec-2007 10:04 Encounter Reason: Follow up, Laboratory Test Results - Lab results: other (abnormal TSH ). Date: (12-03-07). Current symptoms/reason for visit include/s Follow up visit with no current symptoms. There is a family history End: 06-Dec-2007 10:55 of cardiovascular disease. Past medical history includes emotional problems ,gastroesophageal reflux disease ,hypertension ,hypothyroidism and other (menopause, joint pain, night sweats, insomnia ). Encounter Diagnosis: Hypothyroidism (244.9), Pelvis/Thigh/Hip Pain (719.45), Ankle/Foot Pain (719.47), BENIGN NEOPLASM OF THYROID GLANDS (226.), GERD (530.81), Family history of malignant neoplasm of gastrointestinal tract (V16.0), Family history of other endocrine and metabolic diseases (V18.1), Obesity (278.00), Sinusitis,acute (461.9), Fatigue (780.79), Well Women Exam (V72.31)( Pap, Mammo, Routine Female and Dexa) [facility] Office Visit On: 12-Jun-2006 13:35 Encounter Reason: Well Women Exam - The patient feels well with no complaints. Pap smear: history of abnormal pap (1987 HPV ). Contraceptive history: The patient is not using any method of contraception at this time. Pat End: 12-Jun-2006 14:17 ient exercises 3 - 4 times per week. The patient's libido is normal. The patient reports that she performs monthly self breast exam. Previous evaluations: hysterectomy (uterus right ovary removed 8 M ay of 2002 left ovary removed ). 

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
--- OUTSIDE RECORDS SUMMARY | 2018-08-29 16:28 | XMS RPT_ITS | Continuity of Care Document ---
:1955 Author Organization [facility] Address [address] [place] [address] [address] [place] [address] Phone Care Team Providers Name Role Phone Yara Shi MD Unavailable Sonja EVANS , Florian Quintero Unavailable JORDAN Webster Unavailable Unavailable Unavailable Unavailable Problems Name Dates Details Annual Medicare Physical WITH abnormal findings (Renamed from Encounter for general adult medical examination with abnormal findings) (Z00.01, V70.0) Comments: 02-25-77xmejd. colonoscopy 1-16 due every 5 years with father mammo/BD 02-05-16 likes to do every other year. TAHBSO talk about shingles but has outbreaks so uses prn acyclovir. told consider new inacti vated shingles vaccine. gets derm screening [place] with melanoma history. Status: Active Arthralgia (M25.50, 719.40) Comments: since 16 had fever and mainly large joints not fingers. 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 ? rupture the cyst and drain into calf. Status: Active BMI 31.0-31.9,adult (Z68.31, V85.31) Status: Active Current nonsmoker (Renamed from Current [...] and not work as well. Status: Active History of melanoma (Z85.820, V10.82) Comments: see derm in [facility]. must get mammo with relation ship Status: Active History of shingles (Z86.19, V12.09) Comments: she gets recureent shingles right lower left lumbar area. 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 Status: Active Unspecified osteoarthritis, unspecified site (M19.90, 715.90) Comments: left knee will get MRI in [facility] consider arthoscopy cleaning. Status: Active Vitamin D deficiency, unspecified (E55.9, 268.9) Comments: good Status: Active Medications Name Dates Details Ambien 5 MG Oral Tablet 1 (one) Tablet at night insomnia prn for 0 days Quantity: 30 {Tablet} Refills: 2 Ordered:21-Dec-2017 Yara Shi MD, MD, Dana M Start : 21-Dec-2017 Active Comments:[id number] called to RA in [facility] citrate Active NexIUM 40 MG Oral Capsule Delayed Release 1 (one) Capsule in am for 0 days Quantity: 30 {Capsule} Refills: 6 Ordered:03-Feb-2017 Yara Shi MD, MD, Dana M Start : 03-Feb-2017 Active Premarin 0.625 MG Oral Tablet 1 (one) Tablet qd for 0 days Quantity: 60 {Tablet} Refills: 3 Ordered:30-Oct-2017 Yara Shi MD, MD, Dana M Start : 30-Oct-2017 Active Dispense as Written Comments:VON Synthroid 150 MCG Oral Tablet 1 (one) Tablet qd for 0 days Quantity: 102 {Tablet} Refills: 3 Ordered:26-Oct-2017 Yara Shi MD, MD, Dana M Start : 26-Oct-2017 Active Dispense as Written Comments:VON traumeric Active vitamin D3, 1 qd Active AMOXICILLIN, 500MG (Oral Capsule) 1 (one) Capsule tid for 7 days Quantity: 21 {Capsule} Refills: 0 Ordered:04-Apr-2015 Cody MALONE Serenity Best Start : 04-Apr-2015 End : 11-Apr-2015 Inactive ATIVAN, 0.5MG (Oral Tablet) Tablet TID/PRN for 0 days Quantity: 30 {Tablet} Refills: 0 Ordered:20-Jun-2010 JORDAN Webster Start : 26-Feb-2009 End : 20-Jun-2010 Inactive AUGMENTIN, 875-125MG (Oral Tablet) 1 Tablet bid for 14 days Quantity: 28 {Tablet} Refills: 0 Ordered:27-May-2011 Cody MALONE Reyna Start : 27-May-2011 End : 10-Jun-2011 Inactive CALCIUM 500/VITAMIN D, 695-688DT-GRMY (Oral Tablet) 1 (one) Tablet daily for 30 days Quantity: 30 {Tablet} Refills: 0 Ordered:04-Jul-2015 Cody MALONE Serenity Best Start : 04-Apr-2015 End : 04-May-2015 Inactive DOXYCYCLINE HYCLATE, 100MG (Oral Capsule) 1 Capsule bid for 21 days Quantity: 42 {Capsule} Refills: 0 Ordered:14-Jan-2013 Jonathan EVANS, Yara Barajas MD Start : 14-Jan-2013 End : 04-Feb-2013 Inactive FAMCICLOVIR, 500MG (Oral Tablet) 1 Tablet tid for 7 days when have rash for 0 days Quantity: 21 {Tablet} Refills: 2 Ordered:14-Jan-2013 JORDAN Webster Start : 07-Jan-2013 End : 14-Jan-2013 Inactive MULTIVITAMIN ADULTS 50+ (Oral Tablet) 1 (one) Tablet daily for 30 days Quantity: 30 {Tablet} Refills: 0 Ordered:04-Jul-2015 Cody MALONE Reyna Start : 04-Apr-2015 End : 04-May-2015 Inactive [...] days for 3 days Refills: 0 Ordered:20-Jun-2010 Yara Shi MD, MD, Dana M Start : 20-Jun-2010 End : 23-Jun-2010 Inactive ZANTAC 150 MAXIMUM STRENGTH, 150MG (Oral Tablet) (150 MG) Inactive ZANTAC 75, 75MG (Oral Tablet) 1 qd for 0 days Refills: 0 Ordered:02-Mar-2012 Long SEED CONE PICKER, Shanna L End : 02-Mar-2012 Inactive ZANTAC 75, 75MG (Oral Tablet) 1 bid (75 MG) Inactive Zithromax Z-River 250 MG Oral Tablet uad Tablet qd until gone for 0 days Quantity: 1 {Package} Refills: 0 Ordered:15-Jun-2018 JORDAN Webster Start : 23-Oct-2017 End : 15-Jun-2018 Inactive ERGOCALCIFEROL, 71846ILMZ (Oral Capsule) 1 Capsule weekly for 0 days Quantity: 24 {Capsule} Refills: 3 Ordered:04-Apr-2015 SlaElvira zheng LPN Start : 25-Dec-2014 End : 04-Apr-2015 Discontinued ESTRATEST H.S., 0.625-1.25MG (Oral Tablet) Tablet thu and thursday for 0 days Quantity: 30 {Tablet} Refills: 3 Ordered:02-Jul-2009 Fadia Chanel RN Start : 02-Jul-2009 End : 02-Jul-2009 Discontinued [...] 27-May-2011 End : 05-Jul-2012 Discontinued TRIPLE FLEX, [id number] (Oral Tablet) 2 qd for 0 days [...] and thyroid Status: Inactive as of 03-Mar-2016 BMI 26.0-26.9,adult (Z68.26, V85.22) Status: Resolved as of 18-May-2017 BMI 28.0-28.9,adult (Z68.28, V85.24) Status: Resolved as of 15-Jun-2018 Breast nodule (N63.0, 793.89) Comments: with history of melanoma and on ERT at risk for breast ca.us and mammo good and recheck [id number] normal. Status: Inactive as of 23-Jun-2017 Bronchitis (J40, 490) Status: Resolved as of 18-May-2017 Chest pain at rest (R07.9, 786.50) Status: Inactive as of 08-Jul-2016 Chest pain, atypical (R07.89, 786.59) Status: Resolved as of 07-May-2017 Coccygeal pain, chronic (M53.3, 724.79) Comments: better [...] right side. Status: Resolved as of 18-May-2017 Hematuria (R31.9, 599.70) Status: Resolved as of 18-May-2017 HERPES SIMPLEX, UNCOMPLICATED (B00.9, 054.9) Comments: get in leg and use acyclivor prn Status: Inactive as of 03-Mar-2016 Herpes zoster with other nervous system complications (B02.29, 053.19) Comments: has continue pain with stress comes every 6 months. use accyclovir help ask if have once take less often Status: Inactive as of 14-Jan-2013 Herpes zoster without complication (B02.9, 053.9) Comments: right buttocks ? also why pain burning in right flank Status: Resolved as of 07-May-2017 Impaired fasting glucose (R73.01, 790.21) Status: Inactive as of 02-Dec-2013 Lightheaded (R42, 780.4) Status: Resolved as of 18-May-2017 Muscle ache (729.1) Status: Inactive as of 02-Dec-2013 Need for prophylactic vaccination and inoculation against influenza (Z23, V04.81) Status: Inactive as of 14-Jan-2013 Pain in joint involving ankle and foot, unspecified laterality (M25.579, 719.47) Comments: see a transitional care manager as friend, will get MRI as recommend [...] 2002 Completed cholecystectomy 1982 Completed complete thyriodectomy 2003 Completed Hysterectomy; Abdominal Completed Comments: 2002 DUB. RSO because cyst. then 6months later LSO cyst. melanoma removal leg 2004 Completed Date Value Details 05-Oct-2017 Venous Duplex Lower Extremity Result: Comments: See Note; NOTES: [facility] Cardiovascular Services [address] [place] [address] Venous Duplex US, Unilateral 10/05/17 1108 MR#: [id number] Acct: [id number] Name: SEKOU BROOKS Rep #: [id number] : 1955 62 From: Peewee Davies MD [...] MD CC: Yara Shi MD Date Dictated: 10/05/17 1108 Date Transcribed: 10/05/172058 Repairer Controller Tester: Signed 22-May-2017 Breast Limited Unilateral Result: Comments: See Note; NOTES: [facility] Imaging Services [address] [place] [address] Breast Limited Unilateral MR#: [id number] Acct: [id number] Name: SEKOU DE LA GARZA Rep #: [id number] : 1955 F 61 From: Dk Perla MD PCP: Yara Shi MD Status: REG CLI Study: Breast Limited Unilateral Date of Exam: 05/22/17 Exam# [id number] Ordering Dr: Yara Shi MD UDY: ULTRASOUND BREAST - LEFT REASON FOR EXAM: [...] Dk Perla MD at 15:11 EST Tel [phone], Service support , CC: Yara Shi MD Repairer Controller Tester: Signed 22-May-2017 DIAG MAMM W/CAD, BILAT Result: Comments: See Note; NOTES: [facility] Imaging Services [address] [place] [address] DIAG MAMM W/CAD, BILAT MR#: [id number] Acct: [id number] Name: SEKOU DE LA GARZA Rep #: [id number] : 1955 F 61 From: Dk Perla MD PCP: Yara Shi MD Status: REG CLI Study: DIAG MAMM W/CAD, BILAT Date of Exam: 05/22/17 Exam# [id number] Ordering Dr: Yara Shi MD MAMMOGRA PHY [...] delay biopsy of a clinically suspicious abnormality. [id number] Electronically Signed: Dk Perla MD 07/23 at 15:12 EST Tel [phone], Service support , CC: Yara Shi MD Repairer Controller Tester: Signed 09-Jan-2017 Knee 4 or More Views Result: Comments: See Note; NOTES: [facility] Imaging Services [address] [place] [address] Knee 4 or More Views MR#: [id number] Acct: [id number] Name: SEKOU DE LA GARZA Rep #: [id number] : 1955 F 61 From: Kenneth Sanchez DO PCP: Yara Shi MD Status: REG CLI Study: Knee 4 or More Views Date of Exam: 01/09/17 Exam# [id number] Ordering Dr: Yara Shi MD STUDY: X-RAY - RI [facility] KNEE REASON FOR EXAM: Female, 61 years [...] Kenneth Sanchez DO at 11:15 EDT Tel [phone], Service support , CC: Yara Shi MD Repairer Controller Tester: Signed 09-Jan-2017 Knee 4 or More Views Result: Comments: See Note; NOTES: [facility] Imaging Services [address] [place] [address] Knee 4 or More Views MR#: [id number] Acct: [id number] Name: SEKOU DE LA GARZA Rep #: [id number] : 1955 F 61 From: Kenneth Sanchez DO PCP: Yara Shi MD Status: REG CLI Study: Knee 4 or More Views Date of Exam: 01/09/17 Exam# [id number] Ordering Dr: Yara Shi MD STUDY: X-RAY [...] acute osseous process. Electronica lly Signed: Kenneth SanchezDO at 11:17 EDT Tel [phone], Service support , CC: Yara Shi MD Repairer Controller Tester: Signed 21-Nov-2016 Brain W/WO Contrast Result: Comments: See Note; NOTES: [facility] Imaging Services [address] [place] [address] Verdana 4d Brain W/WO Contrast MR#: [id number] Acct: [id number] Name: SEKOU DE LA GARZA Rep #: [id number] : 1955 F 61 From: Stanford Tomlinson MD PCP: Yara Shi MD Status: REG CLI Study: Brain W/WO Contrast Date of Exam: 11/21/16 Exam# [id number] Ordering Dr: Yara Shi MD STUDY: M [...] Service support , CC: Yara Shi MD Repairer Controller Tester: Signed 06-Jun-2016 Chest PA and Lateral Result: Comments: See Note; NOTES: [facility] Imaging Services [address] [place] [address] Verdana 4d Chest PA and Lateral MR#: [id number] Acct: [id number] Name: SEKOU DE LA GARZA p #: [id number] : 1955 F 60 From: Jeff Joseph MD PCP: Yara Shi MD Status: REG CLI Study: Chest PA and Lateral Date of Exam: 06/06/16 Exam# [id number] Ordering Dr: Yara Shi MD STUDY: X-RAY [...] at 12:07 EST Tel , Service support [phone], CC: Yara Shi MD Repairer Controller Tester: Signed 26-Mar-2016 PT D/C of Non Returning Pt (1) Result: Comments: See Note; NOTES: [facility] Physical Therapy [facility] [address] [place], [place] [address] Fax REHABILITATION SERVICES DISCHA RGE SUMMARY MR#: [id number] Acct: [id number] Name: SEKOU DE LA GARZA Rep #: [id number] : 1955 60 From: Nia Nguyen PT, Cert. MDT Referring Dr.: Yara Shi MD Status: REG R Insurance: [facility] HP - Discharge Summary (1) - Patient [...] AND CAD Result: Comments: See Note; NOTES: [facility] Imaging Services [address] [place] [address] Verdana 4d Bilat Scrn Digital AND CAD MR#: [id number] Acct: [id number] Name: ERASMO DE LA GARZA Rep #: [id number] : 1955 F 60 From: Dk Perla MD PCP: Yara Shi MD Status: REG CLI Study: Bilat Scrn Digital AND CAD Date of Exam: 02/05/16 Exam# [id number] Ordering Dr: Yara Shi MD MAMMOGRAPHY - [...] delay biopsy of a clinically suspicious abnormality. [id number] Electronically Signed: Dk Perla MD at 15:33 EDT Tel [phone], S fredericke support [phone], CC: Yara Shi MD Repairer Controller Tester: Signed 05-Feb-2016 Dexa Bone Density Study (HP) Result: Comments: See Note; NOTES: [facility] Imaging Services [address] [place] [address] Verdana 4d Dexa Bone Density Study (HP) MR#: [id number] Acct: [id number] Name: Gregor DE LA GARZA Rep #: [id number] : 1955 F 60 From: Dk Perla MD PCP: Yara Shi MD Status: REG CLI Study: Dexa Bone Density Study (HP) Date of Exam: 02/05/16 Exam# [id number] Ordering Dr: Yara Leiva MD STUDY: DUAL [...] MD 201 11/13/29 at 14:37 EDT Tel [phone], Service support [phone], CC: Yara Shi MD Repairer Controller Tester: Signed 03-Jan-2016 Inital Evaluation (1) - PT Result: Comments: See Note; NOTES: [facility] Physical Therapy [facility] [address] [place] [address] Fax REHABILITATION SE RVICES INITIAL EVALUATION MR#: [id number] Acct: [id number] Name: SEKOU DE LA GARZA Rep #: [id number] : 1955 60 From: Nia Nguyen PT, Cert. MDT Referring Dr.: Yara Shi MD Status: RE G RCR Insurance: [employer] Patient's Visit Information SEKOU DE LA GARZA is a 60 year old F referred to Physical Therapy by Yara Shi with a diagnosis of RIGHT MUSCLE FLANK PAIN, COCCYDYNIA. 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 BOUNCES CONSTANTLY TO A GREAT DEGREE IN [facility]. IN [facility] 6 MONTHS OUT OF THE YEAR. 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 WORK TRAVEL IS [employer] - MOST RECENTLY TWO WEEKS AGO 15 MILES. ABLE TO SIT IN SEAT WITHOUT PRESSURE ON COCCYX. Disability: NO. Present symptoms: TAILBONE AND RIGHT BACK FROM SHOULDER BLADE TO ILIAC CREST. PAT IENT DENIES ADAIR UE AND LE PAIN, NUMBNESS AND TINGLING. Present since: LAST FEB 2015. Pain Scale: TAILBONE PAIN RANGES 0-5/10. Currently: 08/15. UNCHANGING. Commenced as a result of: NO [...] to be FAXED BACK to us at [phone] for Medicare purposes. Please let me know if there are questions or concerns regarding this plan of care. Physician Signature: Date: <Electronically signed by Nia Nguyen PT, Cert. MDT> 01/03/16 1312 CC: Yara Shi MD JEAN-CLAUDE Signed For Medicare only, by signing this I certify the plan of care. Physicians Signature Date 25-Dec-2015 ELECTROCARDIOGRAM, COMPLETE (ECG) ([id number]) Comments: see scanned document of test done to see results reviewed today with patient Result: [MEASUREMENTS ANALYSIS] Date of Test: 12/25/2015 13:05:54; Heart Rate: 82; ME Interval: 140; QRS: 94; QT Interval: 366; Corrected QT Interval (QTc): 404; P Wave Sheldon: 61; QRS Wave Sheldon: 14; T Wave Sheldon: 13; Blood Pressure: 110/70 [ECG DIAGNOSTIC STATEMENTS] Date of Test: 12/25/2015 13:05:54; Summary: Sinus Rhythm -Prominent R(V1) -nonspecific. BORDERLINE 03-Apr-2015 Sacrum-Coccyx min 2 Views Result: Comments: See Note; NOTES: [facility] Imaging Services [address] [address] Verdana 4d Sacrum-Coccyx min 2 Views MR#: [id number] Acct: [id number] Name: SEKOU BROOKS Rep #: [id number] : 1955 F 59 From: Dk Perla MD PCP: Yara Shi MD Status: REG CLI Study: Sacrum-Coccyx min 2 Views Date of Exam: 04/03/15 Exam# [id number] Delma saldivar Dr: Serenity Ross STUDY: X-RAY [...] Dk Perla MD at 8:50 EDT Tel [phone], Service support [phone], OR ROSS #: [id number] RAD/Sacrum-Coccyx min 2 Views IMPRESSION: Degenerative changes of the sacroiliac joints. 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 work out place in [facility] [employer]. [employer] in [facility] Status: Active Living Situation Comments: single lives alone Status: Active No Caffeine Use Status: Active No Drug Use Status: Active Non Smoker/No Tobacco Use Status: Active Tobacco use: Never smoker. Status: Active Smoking Status Name Dates Details Never smoker Vital Signs Date Test Result Details 6-Bwy-781441:31 Temperature 97.9 f Comments: Method: Temporal Pulse [...] kg/m2 Body Surface Area Calculated 1.88 m2 :49 Temperature 97.6 f Pulse 82 /min Comments: [...] kg/m2 Body Surface Area Calculated 2.06 m2 :29 Temperature 97.7 f Comments: Method: Oral Pulse [...] Arm; Cuff Size: Standard Weight 198 lb 71-Evg-700077:14 Pulse 80 /min Comments: Pattern: Regular Respiration [...] Height 0 in Head Circumference 0.00 cm 0-Yqr-772030:36 Temperature 97.6 f Comments: Method: Oral Pulse [...] 0.00 cm Results Date Description Value Details 17-Arr-20516:00 CBC WITH MANUAL DIFF ([id number]) Comments: PERFORMED BY: [facility] Center[facility]qwin6596 [facility] [id number] Immature Grans (Abs) 0.0 {x10E3/uL} (Normal) Range: [...] 3.77-5.28 WBC 6.2 {x10E3/uL} (Normal) Range: 3.4-10.8 :00 Metabolic Panel, Comprehensive Comments: PERFORMED BY: [facility] CenterHjfppw9764 [facility] [id number] (78836) ALT (SGPT) 28 [iU]/L (Normal) Range: 0-32 [...] 8-27 Glucose 99 mg/dL (Normal) Range: 65-99 :0 Cyst See Note (Normal) Comments: [facility] [address] [place], [place], [address] 0 Comments: Patient: TSCHIEGG,SEKOU M : 1955 (62/F) Acct Num: [id number] Phys: Florian Casillas MD Unit Num: [id number] Loc: [facility] Specimen: [id number] Received: 11/20/171525 Spec Ty pe: Cyst TISSUES TISSUES: CYST GROSS DESCRIPTION Received is one container labeled with the patient's name and not further designated. The specimen consists of a previou sly opened cyst with attached adipose tissue measuring 6 x 4 x 2.5 cm. The cyst wall is smooth and measures up to 0.5 cm in thickness. Track Surfacing Machine Operator sections are submitted in two cassettes. / SJ:elia 11/23/17 TC:5 CPT: 88342 HEADER OPERATION: Right knee arthroscopy with partial medial meniscectomy and open excision popliteal cyst PRE-OP DIAGNOSIS: Right knee posterior horn tear, medial me niscus, popliteal cyst TISSUE SUBMITTED: Cyst right knee MICROSCOPIC DESCRIPTION Slides are reviewed. 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 SJ:elia 11/24/17 Signed Curry Serrano 11/24/17 <signature on file> 6-Vaw-818438:48 URINALYSIS ([id number]) Comments: PATIENT NOT FASTINGPERFORMED BY: [facility]70 [facility] [id number] Microscopic Examination MICNIP (Normal) Comments: Microscopic not indicated and not performed. Nitrite, Urine Negative (Normal) Urobilinogen,Semi-Qn 0.2 mg/dL (Normal) Range: 0.2-1.0 Bilirubin Negative (Normal) Occult Blood Negative (Normal) Ketones Negative (Normal) Glucose Negative (Normal) Protein Negative (Normal) WBC Esterase Negative (Normal) Appearance Clear (Normal) Urine-Color Yellow (Normal) pH 7.5 (Normal) Range: 5.0-7.5 Specific [place] 1.020 (Normal) Range: 1.005-1.030 9-Voy-968377:48 CBC WITH MANUAL DIFF Comments: PATIENT NOT FASTINGPERFORMED BY: [facility] [id number] Information: CLIENT DRAW (84973) Immature Grans (Abs) 0.0 {x10E3/uL} (Normal) Range: [...] 3.77-5.28 WBC 5.8 {x10E3/uL} (Normal) Range: 3.4-10.8 11-Iyl-677601:58 T4, FREE (THYROXINE) Comments: PATIENT NOT FASTINGPERFORMED BY: [facility] CenterBrukra7923 [facility] [id number] Information: NURSE DRAW (16310) T4,Free(Direct) 1.78 ng/dL (Abnormal) Range: 0.82-1.77 72-Xwl-145464:58 T3, FREE (TRIDOTHYRONINE) (61335) Comments: PATIENT NOT FASTINGPERFORMED BY: [facility] Kuxcru5445 [facility] [id number] Triiodothyronine,Free,Serum 2.6 pg/mL (Normal) Range: 2.0-4.4 64-Fgx-638949:13 CBC W/Diff, Automated Comments: [facility] [address] [place], [address] Absolute Lymph 1.10 {X10_3/ul} (Normal) Range: 0.83-4.51 [...] 4.2-5.4 WBC 6.2 K/mm3 (Normal) Range: 4.4-11.0 :13 Comprehensive Metabolic Profil Comments: 'TROP' Serial specimen #1, #2, #3, or #4: [address] [place] [address] [address] [place], [place], [id number] GAP 6 (Normal) Range: 5-15 CO2 29.0 [...] Serial specimen #1, #2, #3, or #4: [address] [place] [address] [address] [place], [place], [id number] CPK TOTAL 57 U/L (Normal) Range: 26-192 05-Dez-461041:13 CRP Comments: 'TROP' Serial specimen #1, #2, #3, or #4: 1[facility] [address] [place], [id number] C-REACTIVE PROT 4.17 mg/L (Abnormal) Range: 0.0-3.0 Comments: C-Reactive Protein (CRP) provides useful information for thediagnosis, therapy and monitoring of inflammatory processesand associated diseases. For the evaluation of Relative Riskfor Cardiovascular Dise ase, a High Sensitivity CRP (HSCRP)should be ordered. 95-Ful-150811:13 Erythrocyte Sed Rate Comments: [facility] [address] [place], [address] SED RATE 16 mm/h (Normal) Range: 0-30 65-Pax-559447:13 Troponin-I Comments: 'TROP' Serial specimen #1, #2, #3, or #4: 1[facility] [address] [place], [phone] TROPONIN-I < 0.02 ng/mL (Normal) Comments: TROPONIN-I EXPECTED VALUES <0.05 NEGATIVE 0.06 - 0.59 AT RISK OF MA > OR = 0.60 SUGGEST MA 98-Rht-718642:00 ANTISTREPTOLYSIN O-SCREN (59292) Comments: PATIENT NOT FASTINGPERFORMED BY: [facility] [address] [facility] [id number] Antistreptolysin O Ab <20.0 {IU/mL} (Normal) Range: 0.0-200.0 45-Cgz-168869:51 EBV Panel (99608) Comments: PATIENT NOT FASTINGPERFORMED BY: [facility] [address]87[address] [facility] [id number] BY: [address] [id number] Interpretation: SPRCS (Normal) Comments: EBV Interpretation Chart [...] <36.0 Equivocal 36.0 - 43.9 Positive >43.9 84-Mxk-250085:51 IGA/IGD/IGG/IGM-EACH (46562) Comments: PATIENT NOT FASTINGPERFORMED BY: [employer] [facility] [id number] BY: [employer] [id number] Immunoglobulin E, Total 48 {IU/mL} (Normal) Range: 0-100 Immunoglobulin M, Qn, Serum 57 mg/dL (Normal) Range: 26-217 Immunoglobulin A, Qn, Serum 238 mg/dL (Normal) Range: 87-352 Immunoglobulin G, Qn, Serum 1070 mg/dL (Normal) Range: 700-1600 73-Ngo-330200:51 CCP ANTIBODY (69970) Comments: PATIENT NOT FASTINGPERFORMED BY: [employer] [facility] [id number] BY: [employer] [id number] CCP Antibodies IgG/IgA 6 {units} (Normal) Range: 0-19 Comments: Negative <20 Weak positive 20 - 39 Moderate positive 40 - 59 Strong positive >59 61-Ris-895028:51 SED RATE ERYTHROCYTE Comments: PATIENT NOT FASTINGPERFORMED BY: [facility] Xepfjm2165 [facility] [id number] BY: [address] [id number] (23630) Sedimentation Rate-Westergren 8 mm/h (Normal) Range: 0-40 33-Waj-723373:51 C-REACTIVE PROTEIN Comments: PATIENT NOT FASTINGPERFORMED BY: [facility] Fsmfkl4679 [facility] [id number] BY: [address] [id number] (88252) C-Reactive Protein, Quant 2.9 mg/L (Normal) Range: 0.0-4.9 41-Xuq-927128:51 TSH (12958) Comments: PATIENT NOT FASTINGPERFORMED BY: [facility] [address] [facility] [id number] BY: [address] [id number] TSH 0.317 {uIU/mL} (Abnormal) Range: 0.450-4.500 90-Job-694437:51 RHEUMATOID FACTOR-QUANT Comments: PATIENT NOT FASTINGPERFORMED BY: [facility] Wlpcgc1954 [facility] [id number] BY: [address] [id number] (39881) RA Latex Turbid. <10.0 {IU/mL} (Normal) Range: 0.0-13.9 02-Atd-247939:51 ERI (ANTINUCLEAR ANTIBODY) Comments: PATIENT NOT FASTINGPERFORMED BY: [facility] Mzjouv6480 [facility] [id number] BY: [address] [id number] (95059) ERI Direct Negative (Normal) 77-Jyz-966271:51 METABOLIC PANEL, Comments: PATIENT NOT FASTINGPERFORMED BY: [facility] Jvxcjj4059 [facility] [id number] BY: [employer] [address] [id number] COMPREHENSIVE (04229) ALT (SGPT) 23 [iU]/L (Normal) Range: 0-32 [...] Glucose, Serum 116 mg/dL (Abnormal) Range: 65-99 46-Mnc-707049:51 CBC with auto diff Comments: PATIENT NOT FASTINGPERFORMED BY: [facility] Wzvvuf9283 [facility] [id number] BY: LabCo[address] [id number] (23722) Immature Grans (Abs) 0.0 {x10E3/uL} (Normal) Range: [...] {x10E3/uL} (Normal) Range: 3.4-10.8 :28 ITALIA CULTURE-OTHER (73290) Comments: PATIENT NOT FASTINGPERFORMED BY: [facility]6370 [facility] [id number] Information: SRC:TH Result 1 RRF (Normal) Comments: Routine respiratory villa Upper Respiratory Culture Final report (Normal) 00-Ndx-423654:25 Rapid Strep Test, Office (23930) Rapid Strep Test, Office Negative (Normal) 16-Mcs-397961:20 Urinalysis, Office (96082) UA - LEUKOCYTE ESTERASE Negative (Normal) UA - NITRITE Negative (Normal) URINE UROBILINGN ANDRZEJ TIMED Normal mg/dL (Normal) UA - PROTEIN Negative mg/dL (Normal) UA - PH 6.5 (Normal) UA - BLOOD Negative (Normal) UA - SPECIFIC GRAVITY 1.025 (Normal) UA - KETONES Negative mg/dL (Normal) UA - BILIRUBIN Negative (Normal) UA - GLUCOSE Negative (Normal) 70-Smm-446798:45 Urinalysis, Office (59959) UA - LEUKOCYTE ESTERASE Negative (Normal) UA - NITRITE Negative (Normal) URINE UROBILINGN ANDRZEJ TIMED Normal mg/dL (Normal) UA - PROTEIN Negative mg/dL (Normal) UA - PH 6.5 (Normal) UA - BLOOD Negative (Normal) UA - SPECIFIC GRAVITY 1.020 (Normal) UA - KETONES Negative mg/dL (Normal) UA - BILIRUBIN Negative (Normal) UA - GLUCOSE Negative (Normal) 28-Grm-03493:56 HEPATITIS B SURFACE Comments: PATIENT NOT FASTINGPERFORMED BY: [employer] [facility]iz [facility] HospitalN4MDCape Fear/Harn[facility] [id number] Information: [id number] ANTIBODY (87255) Hep B Surface Ab, Qual Non Reactive (Normal) Comments: Non Reactive: Inconsistent with immunity, less than 10 mIU/mL Reactive: Consistent with immunity, greater than 9.9 mIU/mL 57-Vhm-436365:19 Urinalysis, Office (00957) UA - LEUKOCYTE ESTERASE Trace (Normal) UA - NITRITE Negative (Normal) URINE UROBILINGN ANDRZEJ TIMED 2 mg/dL (Normal) UA - PROTEIN Negative mg/dL (Normal) UA - PH 6.5 (Normal) UA - BLOOD Negative (Normal) UA - SPECIFIC GRAVITY 1.015 (Normal) UA - KETONES Negative mg/dL (Normal) UA - BILIRUBIN Negative (Normal) UA - GLUCOSE Negative (Normal) 20-Sjc-28078:53 Lipid Panel (95584) Comments: PATIENT WAS FASTINGPERFORMED BY: [facility]70 [facility] [id number] LDL/HDL Ratio 1.1 {ratio_units} (Normal) Range: 0.0-3.2 [...] Cholesterol, Total 144 mg/dL (Normal) Range: 100-199 :53 Metabolic Panel, Comprehensive Comments: PATIENT WAS FASTINGPERFORMED BY: [employer]70 [facility] [id number] (95012) ALT (SGPT) 36 [iU]/L (Abnormal) Range: 0-32 [...] MANUAL DIFF Comments: PATIENT WAS FASTINGPERFORMED BY: [employer]6370 [facility] [id number] Information: [id number] (95244) Immature Grans (Abs) 0.0 {x10E3/uL} (Normal) Range: [...] 3.77-5.28 WBC 5.4 {x10E3/uL} (Normal) Range: 3.4-10.8 17-Syo-30791:53 CALCIFEDIOL (02509) Comments: PATIENT WAS FASTINGPERFORMED BY: [facility]6370 [facility] [id number] Vitamin D, 25-Hydroxy 57.9 ng/mL (Normal) Range: 30.0-100.0 Comments: Vitamin D deficiency has been defined by the [place] ofMedicine and an Endocrine Society practice guideline as alevel of serum 25-OH vitamin D less than 20 ng/mL (1,2).The Endocrine Society went on to further define vitamin Dinsufficiency as a level between 21 and 29 ng/mL (2).1. IOM ([place] of Medicine). 2010. Dietary reference intakes for calcium and D. [place]: The National Academies Press.2. Chantal MF, Patricio NIELSEN, Pooja RENDON, et al. Evaluation, treatment, and prevention of vitamin D deficiency: an Endocrine Society clinical practice guideline. JCEM. 2010; 96(7):1911-30. :53 T4, FREE (THYROXINE) (48244) Comments: PATIENT WAS FASTINGPERFORMED BY: [employer]SOL[employer] Olioeq9457 [facility] [place] [id number] T4,Free(Direct) 1.52 ng/dL (Normal) Range: 0.82-1.77 :53 TSH (08071) Comments: PATIENT WAS FASTINGPERFORMED BY: [employer] Yupzfa7704 [facility]in [place] [id number] TSH 1.790 {uIU/mL} (Normal) Range: 0.450-4.500 :19 Lipid Panel (68141) Comments: PATIENT WAS FASTINGPERFORMED BY: [facility] Neaeep9805 [facility]in [place] [id number] LDL/HDL Ratio 1.1 {ratio_units} (Normal) Range: 0.0-3.2 [...] manual diff Comments: PATIENT WAS FASTINGPERFORMED BY: [facility] Zpvldd3781 [facility] [id number] Information: [id number] (96795) Immature Grans (Abs) 0.0 {x10E3/uL} (Normal) Range: [...] 3.77-5.28 WBC 6.9 {x10E3/uL} (Normal) Range: 3.4-10.8 18-Chq-926454:19 Metabolic Panel, Comprehensive Comments: PATIENT WAS FASTINGPERFORMED BY: LabCoDeborah Heart and Lung CenterOlszxx2419 [facility] [id number] (56100) ALT (SGPT) 44 [iU]/L (Abnormal) Range: 0-32 [...] Glucose, Serum 87 mg/dL (Normal) Range: 65-99 06-Xoo-812001:19 TSH (77260) Comments: PATIENT WAS FASTINGPERFORMED BY: LabCoDeborah Heart and Lung CenterKrzqmf6824 [facility] [id number] TSH 1.710 {uIU/mL} (Normal) Range: 0.450-4.500 6-Ykj-508961:24 BILAT SCRN DIGITAL & CAD Radiology Report [...] Perla M.D.January 07, 2013 at 10:55:36 AM [id number] Signed GP/GP If you are the referring physician and would like to consult with theradiologist who provided this interpretation, please c ontact Carine Alexander at [phone]. If this radiologist is unavailable, youwill be directed to another radiologist to assist. If you are a patient with a question regarding this report, plea secontactyour referring physician directly. Professional Interpretation Provided By: [employer], Phone , These documents contain legally protected [...] 01/07/13 1104 Sign by: Dk Perla MD 8-Rsa-346441:04 Lyme Disease,Serum, Western Comments: PATIENT NOT FASTINGPERFORMED BY: BN [facility] Jjacrzjcje8943 [facility] [id number] BY: CB [facility] Ntolul6479 [facility] [id number] Information: [id number] Blot (15946) Lyme IgM WB Interp. Negative (Normal) Comments: [...] positivity are those recommended by CDC/ASTPHLD.p23=Osp C, j08=ewjvsqsoi .Note:Sera from individuals with the following may cross react in theLyme Western Blot assays: other spirochetal diseases (periodontaldisease, leptospirosis, relapsing fever, yaws, and pinta);connective autoimmune (Rheumatoid Arthritis and Systemic Lupu sErythematosus and also individuals with Antinuclear Antibody);other infections ([place] Spotted Fever; Fidencio-Hester Virus,and Cytomegalovirus). . IgM [...] Absent (Normal) IgG P93 Ab. Absent (Normal) 2-Rto-552224:04 Lyme Disease Antibody W/ Comments: PATIENT NOT FASTINGPERFORMED BY: House[employer] [id number] BY: [facility] Noxilm6048 [facility] [id number] Reflex (89677) Lyme Ab Interp.,EIA Negative (Normal) Lyme IgG/IgM Ab <0.91 {index} (Normal) Range: 0.00-0.90 Comments: Negative <0.91 Equivocal 0.91 - 1.09 Positive >1.09 Note: [facility] curren tly advises that Western blot testing be performed following all equivocal or positive EIA results. Final diagnosis should include appropriate clinical findi ngs and a positive EIA which is also positive by Western blot. :04 T4, TOTAL (87776) Comments: PATIENT NOT FASTINGPERFORMED BY: HouseTrip[address] [id number] BY: HouseTripDeborah Heart and Lung CenterMhaltj1934 [facility] [id number] Thyroxine (T4) 12.7 ug/dL (Abnormal) Range: 4.5-12.0 4-Oct-256371:04 T3, FREE (TRIDOTHYRONINE) Comments: PATIENT NOT FASTINGPERFORMED BY: HouseTrip[address] [id number] BY: HouseTripCarlsbad Medical CenterFatmer7348 [facility] [id number] (25946) Triiodothyronine,Free,Serum 3.5 pg/mL (Normal) Range: 2.0-4.4 3-Ehm-565726:04 CALCIFIDIOL (27492) VIT D Comments: PATIENT NOT FASTINGPERFORMED BY: HouseTrip[address] [id number] BY: [facility] SquaredSelect [facility]ty Hospital-[facility]ontiac6370 [facility] [id number] Vitamin D, 25-Hydroxy 23.9 ng/mL (Abnormal) Range: 30.0-100.0 Comments: Vitamin D deficiency has been defined by the [place] ofMedicine and an Endocrine Society practice guideline as alevel of serum 25-OH vitamin D less than 20 ng/mL (1,2).The Endocrine Society went on to further define vitamin Dinsufficiency as a level between 21 and 29 ng/mL (2).1. IOM ([place] of Medicine). 2010. Dietary reference intakes for calcium and D. [place]: The National Academies Press.2. Chantal MF, Patricio NIELSEN, Pooja RENDON, et al. Evaluation, treatment, and prevention of vitamin D deficiency: an Endocrine Society clinical practice guideline. JCEM. 2010; 96(7):1911-30. 8-Knn-637658:04 Folate (68125) Comments: PATIENT NOT FASTINGPERFORMED BY: Jukely LabFishidyHjyhhnylaa89[address] [id number] BY: [employer] [facility] Obrrro9243 Alaniz RoadDublin [place] [id number] Folate (Folic Acid), Serum >19.9 ng/mL (Normal) Comments: A serum folate concentration of less than 3.1 ng/mL isconsidered to represent clinical deficiency. 3-Npw-587377:04 VITAMIN B-12 (CYANOCOBALAMIN) Comments: PATIENT NOT FASTINGPERFORMED BY: Jukely [facility] Miczeeaejk7[address] [id number] BY: [employer] [facility] Aqnnhf6620 Alaniz RoadDublin [place] [id number] (31584) Vitamin B12 499 pg/mL (Normal) Range: 211-946 4-Nmb-620778:04 TSH (65156) Comments: PATIENT NOT FASTINGPERFORMED BY: [facility] Nqemlfecko[address] [id number] BY: [employer] [facility] Deoxce7814 Alaniz RoadDublin [place] [id number] TSH 0.214 {uIU/mL} (Abnormal) Range: 0.450-4.500 9-Zic-300355:04 SED RATE ERYTHROCYTE Comments: PATIENT NOT FASTINGPERFORMED BY: [facility] Hygcchtvre66[address] [id number] BY: [employer] [facility] Wkozju4460 Alaniz RoadDublin [place] [id number] (00082) Sedimentation Rate-Westergren 3 mm/h (Normal) Range: 0-40 2-Upi-888510:04 RHEUMATOID FACTOR-QUANT Comments: PATIENT NOT FASTINGPERFORMED BY: Lab[address] [id number] BY: [facility]6370 [facility] [id number] (62581) RA Latex Turbid. 8.2 {IU/mL} (Normal) Range: 0.0-13.9 5-Jyz-427899:04 METABOLIC PANEL, Comments: PATIENT NOT FASTINGPERFORMED BY: LabCo[address] [id number] BY: LabSelect Specialty Hospital-[facility]ontiac6370 [facility] [id number] COMPREHENSIVE (30263) ALT (SGPT) 26 [iU]/L (Normal) Range: 0-32 [...] Glucose, Serum 107 mg/dL (Abnormal) Range: 65-99 5-Yoy-748067:04 C-REACTIVE PROTEIN (22925) Comments: PATIENT NOT FASTINGPERFORMED BY: [employer] [id number] BY: HouseTrip[address] [id number] C-Reactive Protein, Quant 10.6 mg/L (Abnormal) Range: 0.0-4.9 5-Twx-135342:04 CBC (AUTO) (86472) Comments: PATIENT NOT FASTINGPERFORMED BY: [employer] [id number] BY: HouseTripDeborah Heart and Lung CenterFqxmve4[address] [place] [address] [id number] Platelets 292 {x10E3/uL} (Normal) Range: 140-415 RDW 13.5 % (Normal) Range: 12.3-15.4 MCHC 32.2 g/dL (Normal) Range: 31.5-35.7 MCH 28.6 pg (Normal) Range: 26.6-33.0 MCV 89 fL (Normal) Range: 79-97 Hematocrit 44.1 % (Normal) Range: 34.0-46.6 Hemoglobin 14.2 g/dL (Normal) Range: 11.1-15.9 RBC 4.96 {x10E6/uL} (Normal) Range: 3.77-5.28 WBC 5.4 {x10E3/uL} (Normal) Range: 4.0-10.5 3-Yxe-821710:04 ERI (ANTINUCLEAR ANTIBODY) Comments: PATIENT NOT FASTINGPERFORMED BY: [employer] [id number] BY: [employer] [id number] (57173) ERI Direct Negative (Normal) 14-Xtk-438602:16 T4, FREE (THYROXINE) (88469) Comments: PATIENT NOT FASTINGPERFORMED BY: [facility]6370 [facility] [id number] T4,Free(Direct) 1.91 ng/dL (Abnormal) Range: 0.82-1.77 :16 T3, FREE (TRIDOTHYRONINE) (42166) Comments: PATIENT NOT FASTINGPERFORMED BY: LabSelect Specialty Hospital-[facility]ontiac6370 [facility] [id number] Triiodothyronine,Free,Serum 3.3 pg/mL (Normal) Range: 2.0-4.4 :16 Magnesium (18646) Comments: PATIENT NOT FASTINGPERFORMED BY: LabSelect Specialty Hospital-[facility]ontiac6370 [facility] [id number] Magnesium, Serum 2.2 mg/dL (Normal) Range: 1.6-2.6 :16 Hemoglobin Glyclated (HGB A1C) Comments: PATIENT NOT FASTINGPERFORMED BY: [facility]6370 [facility] [id number] (42281) Hemoglobin A1c 5.6 % (Normal) Range: 4.8-5.6 Comments: . Increased risk for diabetes: 5.7 - 6.4 Diabetes: >6.4 Glycemic control for adults with diabetes: <7.0 :16 CBC (Auto) (97304) Comments: PATIENT NOT FASTINGPERFORMED BY: [facility]6370 [facility] [id number] Platelets 283 {x10E3/uL} (Normal) Range: 140-415 MCHC 32.7 g/dL (Normal) Range: 31.5-35.7 RDW 13.7 % (Normal) Range: 12.3-15.4 MCH 29.1 pg (Normal) Range: 26.6-33.0 MCV 89 fL (Normal) Range: 79-97 Hematocrit 41.9 % (Normal) Range: 34.0-46.6 Hemoglobin 13.7 g/dL (Normal) Range: 11.1-15.9 RBC 4.71 {x10E6/uL} (Normal) Range: 3.77-5.28 WBC 6.5 {x10E3/uL} (Normal) Range: 4.0-10.5 87-Hxp-047159:16 Metabolic Panel, Comments: PATIENT NOT FASTINGPERFORMED BY: [facility] Znalnh8592 [facility] [id number] Information: [id number] Comprehensive (80727) ALT (SGPT) 20 [iU]/L (Normal) Range: 0-32 [...] Glucose, Serum 97 mg/dL (Normal) Range: 65-99 60-Sat-203194:16 TSH (65252) Comments: PATIENT NOT FASTINGPERFORMED BY: [facility] SquaredSelect [facility] Hospital-[facility]6370 [facility] [id number] TSH 0.220 {uIU/mL} (Abnormal) Range: 0.450-4.500 24-Wvj-387004:16 CALCIFIDIOL (64602) VIT D 25 Comments: PATIENT NOT FASTINGPERFORMED BY: LabCoDeborah Heart and Lung CenterPcihyo0960 [facility] [id number] Vitamin D, 25-Hydroxy 18.6 ng/mL (Abnormal) Range: 30.0-100.0 Comments: Vitamin D deficiency has been defined by the [place] ofMedicine and an Endocrine Society practice guideline as alevel of serum 25-OH vitamin D less than 20 ng/mL (1,2).The Endocrine Society went on to further define vitamin Dinsufficiency as a level between 21 and 29 ng/mL (2).1. IOM ([place] of Medicine). 2010. Dietary reference intakes for calcium and D. [place]: The National Academies Press.2. Chantal MF, Patricio NIELSEN, Pooja RENDON, et al. Evaluation, treatment, and prevention of vitamin D deficiency: an Endocrine Society clinical practice guideline. JCEM. 2010; 96(7):1911-30. 13-Vyh-862286:59 HEMOGLOBIN GLYCLATED (HGB A1C) (74339) HEMOGLOBIN GLYCLATED (HGB A1C) 5.5 % (Normal) Range: 4.6 - 7.1 53-Aps-582190:17 HgA1C , Office (35668) HgA1C , Office 5.4 % (Normal) Range: 4.6 - 7.1 05-Rcm-957435:02 CBC with manual diff Comments: PATIENT WAS FASTINGPERFORMED BY: [facility] Yeqdnt5473 [facility] [id number] Information: [id number] (64710) Immature Grans (Abs) 0.0 {x10E3/uL} (Normal) Range: [...] 3.80-5.10 WBC 5.9 {x10E3/uL} (Normal) Range: 4.0-10.5 40-Yoa-324955:02 Metabolic Panel, Comprehensive Comments: PATIENT WAS FASTINGPERFORMED BY: LabCoDeborah Heart and Lung CenterJglrdx8294 [facility] [id number] (31002) ALT (SGPT) 26 [iU]/L (Normal) Range: 0-40 [...] Glucose, Serum 110 mg/dL (Abnormal) Range: 65-99 44-Oms-797664:02 TSH (18559) Comments: PATIENT WAS FASTINGPERFORMED BY: [employer]6370 [facility] [id number] TSH 0.115 {uIU/mL} (Abnormal) Range: 0.450-4.500 77-Qdg-298929:02 T4, FREE (THYROXINE) (06221) Comments: PATIENT WAS FASTINGPERFORMED BY: [employer] LabSOLOMO Technologyrp Zpiiuq6471 [facility] [id number] T4,Free(Direct) 1.94 ng/dL (Abnormal) Range: 0.82-1.77 70-Zjt-403740:11 ITALIA CULTURE-OTHER (05475) Comments: PATIENT NOT FASTINGPERFORMED BY: [employer] LabSOLOMO Technology Jdffxt0000 [facility] [id number] Information: SRC:THRT [id number] Result 1 RRF (Normal) Comments: Routine respiratory villa Upper Respiratory Culture Final report (Normal) 33-Gsf-789983:22 Rapid Strep Test, Office (83652) Rapid Strep Test, Office Negative (Normal) 73-Flp-02423:28 Urinalysis, Office (58402) UA - BILIRUBIN Negative (Normal) UA - BLOOD Negative (Normal) UA - GLUCOSE Negative (Normal) UA - KETONES Negative mg/dL (Normal) UA - LEUKOCYTE ESTERASE Negative (Normal) UA - NITRITE Negative (Normal) UA - PH 6.0 (Normal) UA - PROTEIN Negative mg/dL (Normal) UA - SPECIFIC GRAVITY 1.005 (Normal) URINE UROBILINGN ANDRZEJ TIMED 2 mg/dL (Normal) 76-Tas-41973:23 CBC With Differential/Platelet Comments: PATIENT WAS FASTINGPERFORMED BY: [facility]6370 [facility] [id number] Immature Grans (Abs) 0.0 {x10E3/uL} (Normal) Range: [...] 3.80-5.10 WBC 5.7 {x10E3/uL} (Normal) Range: 4.0-10.5 :23 Comp. Metabolic Panel (14) Comments: PATIENT WAS FASTINGPERFORMED BY: [facility] Jwzslk7312 [facility] [id number] ALT (SGPT) 25 [iU]/L (Normal) Range: 0-40 [...] Glucose, Serum 104 mg/dL (Abnormal) Range: 65-99 :23 Lipid Panel With LDL/HDL Comments: PATIENT WAS FASTINGPERFORMED BY: LabSelect [facility]ty [facility]6370 [facility] [id number] Ratio LDL Cholesterol Calc 95 mg/dL (Normal) Range: 0-99 LDL/HDL Ratio 1.1 {ratio_units} (Normal) Range: 0.0-3.2 VLDL Cholesterol [place] 16 mg/dL (Normal) Range: 5-40 HDL Cholesterol 83 mg/dL (Normal) Comments: According to ATP-III Guidelines, HDL-C >59 mg/dL is considered anegative risk factor for CHD. Triglycerides 80 mg/dL (Normal) Range: 0-149 Cholesterol, Total 194 mg/dL (Normal) Range: 100-199 04-Izb-57453:23 Thyroxine (T4) Free, Direct, S Comments: PATIENT WAS FASTINGPERFORMED BY: [facility]6[address] [facility] [id number] T4,Free(Direct) 1.72 ng/dL Range: 0.82-1.77 (Normal) 18-Jun-2010 Triiodothyronine,Free,Seru 2.8 pg/mL (Normal) Comments: PATIENT WAS FASTINGPERFORMED BY: LabSelect [facility]ty [facility]6370 [facility] [id number] 9:23 m Range: 2.0-4.4 18-Jun-2010 TSH 0.246 {uIU/mL} Comments: PATIENT WAS FASTINGPERFORMED BY: LabSelect [facility]6[address] [facility] [id number] 9:23 (Abnormal) Range: 0.450-4.500 18-Jun-2010 Vitamin D, 25-Hydroxy 18.7 ng/mL Comments: PATIENT WAS FASTINGPERFORMED BY: LabSelect [facility]6370 [facility] [id number] 9:23 (Abnormal) Range: 32.0-100.0 Comments: Recent studies consider the lower limit of 32.0 ng/mL to be athreshold for optimal health.Gautam CENTENO. J Nutr. 2004;135(2):317-22. 93-Eoo-73132:56 UNILAT LT DIAG DIGITAL & CAD Radiology Report See Note (Normal) Comments: Exam Number: [id number] MAMMOGRAM, UNILATERAL LEFT DIAGNOSTIC DIGITAL AND CAD [...] mammograms werealso examined with computer-aided detection software ([employer] Reported By: KE ALONZO M.D. 00-Knh-40038:58 [facility] DIGITAL & CAD Radiology Report See Note (Normal) Comments: Exam Number: [id number] MAMMOGRAM, BILATERAL SCREENING DIGITAL AND CAD HISTORYRoutine [...] mammograms werealso examined with computer-aided detection software ([employer] Reported By: KE ALONZO M.D. 51-Ypn-401829:58 CBCD,SMEAR DIFF CELLS COUNTED 100 (Normal) EOS [...] 4.2-5.4 WBC 5.7 K/mm3 (Normal) Range: 4.4-11.0 55-App-661699:58 COMP METABOLIC A/G 0.9 {RATIO} (Normal) Range: [...] FREE T3 3.0 pg/mL (Normal) Range: 2.18-3.98 :58 LIPID CHOL 214 mg/dL (Abnormal) Comments: <200 [...] Range: 0.2 - 1.0 :44 T3, FREE 82682 3.1 pg/mL (Normal) Comments: PATIENT HAD PEANUT BUTTER SANDWICH AND SWEET TEA PATIENT WANTS BLOOD DRAWN ANYWAY Range: 2.3-4.2 Comments: Performed At: [address] [id number] :44 T4 FREE,DIRECT 1.6 ng/dL (Normal) Comments: [...] mg/dL VLDL 9 mg/dL (Normal) Range: 5-40 :33 CBC HCT 41.7 % (Normal) Range: 37-47 [...] g/dL (Normal) Range: 6.4-8.2 :33 T3, FREE 64360 3.3 pg/mL (Normal) Range: 2.3-4.2 Comments: Performed At: [address] [id number] :33 T4 FREE 1974 1.60 ng/dL (Normal) [...] (KF) Indication: Well woman exam Planned Observations Urinalysis, Office (79825)Indication: Low back pain without sciatica, unspecified back pain laterality On: 8-Yny-571127:53 Request CALCIFIDIOL (85936) VIT D 25Indication: Vitamin D deficiency, unspecified On: :15 Request TSH (50964)Indication: Hurthle cell adenoma On: :15 Request T3, FREE (TRIDOTHYRONINE) (53741)Indication: Hurthle cell adenoma On: :15 Request T4, FREE (THYROXINE) (96182)Indication: Hurthle cell adenoma On: 27-Gha-850920:15 Request THYROGLOBULIN (66599)Indication: Hurthle cell adenoma On: 20-Tup-760955:14 Request HEPATITIS C ANTIBODY (39222)Indication: Need for hepatitis B screening test On: :01 Request Metabolic Panel, Comprehensive (53809)Indication: Hypothyroidism On: 21-Bfo-234007:13 Request T4, FREE (THYROXINE) (34169)Indication: Hypothyroidism On: :08 Request T3, FREE (TRIDOTHYRONINE) (54734)Indication: Hypothyroidism On: 77-Lsn-807713:08 Request C-Reactive Protein (92667)Indication: Chest pain, atypical On: :21 Request Sed Rate Erythrocyte (49806)Indication: Chest pain, atypical On: : Request CBC (Auto) (29964)Indication: Chest pain, atypical On: : Request Metabolic Panel, Comprehensive (06951)Indication: Chest pain, atypical On: :21 Request Troponin I (37953)Indication: Chest pain, atypical On: :21 Request CPK MB FRACTION (44684)Indication: Chest pain, atypical On: :21 Request CREATINE KINASE TOTAL (58233)Indication: Chest pain, atypical On: :21 Request T4, FREE (THYROXINE) (09542)Indication: Hypothyroidism On: 1-Ohe-253310:51 Request Comments: re check in 8 weeks T3, FREE (TRIDOTHYRONINE) (46002)Indication: Hypothyroidism On: :51 Request Comments: recheck in 8 weeks TSH (10508)Indication: Hypothyroidism On: :51 Request Comments: recheck in 8 weeks HEPATIC FUNCTION PANEL (23259)Indication: Abnormal finding of blood chemistry, unspecified On: :07 Request Comments: 6 weeks CALCIFIDIOL ([id number]) VIT D 25Indication: Vitamin D deficiency, unspecified On: :33 Request CALCIFIDIOL (47700) VIT D 25Indication: Vitamin D deficiency, unspecified On: :58 Request C-REACT PROT HIGH SENS(hsCRP) ([id number])Indication: Arthralgia On: :58 Request METABOLIC PANEL, BASIC (98514)Indication: Impaired fasting glucose On: 66-Dsg-264787:00 Request LIPID PANEL ([id number])Indication: Hypothyroidism On: 48-Asa-764021:10 Request METABOLIC PANEL, COMPREHENSIVE (94263)Indication: Hypothyroidism On: 55-Fkz-833736:10 Request CBC & PLATELETS (AUTO) ([id number])Indication: Hypothyroidism On: :09 Request TSH (THYROID STIMULATING HORMONE) ([id number])Indication: Hypothyroidism On: [id number]-[id number] Request CALCIFEDIOL ([id number])Indication: Hypothyroidism On: 39-Bhz-[id number]:09 Request Thin prep Pap ([id number])Indication: Well woman exam On: [id number]-Qpz-[id number]:15 Request Planned Procedures VENOUS DOPPLER LOWER EXTREMITY On: 05-Oct-2017 Intent ([id number])By: Yara Shi MD Comments: venous doppler of right lower extremity Yara Shi MD DIAGNOSTIC BILATERAL MAMMOGRAM On: 18-May-2017 Intent ([id number])By: Yara Shi MD, MD, Dana M Breast Ultrasound - LeftBy: On: 18-May-2017 Intent Yara Shi MD, MD, Dana M DRAIN/INJECT MAJOR JOINT OR BURSA On: 03-Feb-2017 Intent ()By: Yara Shi MD Comments: lot:[id number]:1-05-1070vqk:intra articular dose:2ml given by:Dr. Jonathan BOYD signedER, SEED [employer] PICKER injection #3 Bilateral Knees Yara Shi MD DRAIN/INJECT MAJOR JOINT OR BURSA On: 27-Jan-2017 Intent ()By: Yara Shi MD Comments: lot:[id number]:02-01-18rte:intra articulardose:2ml given by:Dr. Stark signedER, SEED [place] PICKER injection #2 Bilateral knees Yara Shi MD DRAIN/INJECT MAJOR JOINT OR BURSA On: 16-Jan-2017 Intent ()By: Yara Shi MD Comments: lot:[id number]:02-01-18rte:intra articular dose: 2ml given by:Dr. Jonathan BOYD signedER, SE[employer] PICKER Yara Shi MD Kenalog Injection, 10 mgm On: 09-Jan-2017 Intent ([id number])By: Yara Shi MD, MD, Dana M Radiology - Knee - Left - Weight On: 09-Jan-2017 Intent BearingBy: Yara Shi MD, MD, Dana M Radiology - Knee - Right - Weight On: 09-Jan-2017 Intent BearingBy: Yara Shi MD, MD, Dana M MRI OF BRAIN WITH AND WITHOUT On: 20-Nov-2016 Intent CONTRAST ([id number])By: Jonathan EVANS, Comments: rule out MS rule ut out infarct look at inner ear. if can what does right maxillary sinus look like Yara Oates MD EKG ([id number])By: Yara Shi MD On: 20-Nov-2016 Intent Yara Coelho MD Radiology - ChestBy: Jonathan EVANS, On: 06-Jun-2016 Intent Yara Oates MD DEXA SCAN AXIAL SKELETON On: 30-Jan-2016 Intent ([id number])By: Yara Shi MD, MD, Dana M MAMMOGRAM, SCREENING, BOTH BREAST On: 30-Jan-2016 Intent ([id number])By: Yara Shi MD, MD, Dana M Radiology - Sacrum/CoccyxBy: On: 03-Apr-2015 Intent Serenity Ross CNP MAMMOGRAM, SCREENING, BOTH BREAST On: 25-Dec-2014 Intent ([id number])By: Yara Shi MD, MD, Dana M MAMMOGRAM, SCREENING, BOTH BREAST On: 02-Dec-2013 Intent ([id number])By: Yara Shi MD, MD, Dana M DRAIN/INJECT MAJOR JOINT OR BURSA On: 24-Jan-2013 Intent ()By: Yara Shi MD, MD, Dana M DRAIN/INJECT MAJOR JOINT OR BURSA On: 14-Jan-2013 Intent ()By: JORDAN Webster Comments: Lot #:[id number] date:mount given:2ml Route: intra articular Site given:left knee Given by: Dr. Chaujection #1 MAMMOGRAM, SCREENING, BOTH On: 07-Jan-2013 Intent BREASTS ([id number])By: Serenity Ross CNP EKG ([id number])By: Julius ANDRADE, On: 07-Jan-2013 Intent Diana Comments: sinus rhythm MAMMOGRAM, SCREENING, BOTH On: 05-Jul-2012 Intent BREASTS ([id number])By: Yara Shi MD, MD, Dana M Eprescribed prescriptions On: 05-Jul-2012 Intent ([id number])By: Shanna Welsh LPN DRAIN/INJECT MAJOR JOINT OR BURSA On: 02-Mar-2012 Intent ()By: Yara Shi MD, MD, Dana M IMMUNIZ ADMNIN, 1 VAC, SNGL/COMBO On: 02-Mar-2012 Intent ([id number])By: Shanna Welsh LPN Comments: declined FLU VAC, SPLIT, >3 YEARS, On: 02-Mar-2012 Intent INTRAMUSC ([id number])By: Shanna Welsh LPN Eprescribed prescriptions On: 02-Mar-2012 Intent ([id number])By: Shanna Welsh LPN EKG ([id number])By: Yara Shi MD On: 01-Jul-2011 Intent Yara Coelho MD Comments: ekg no change TDAP VACCINE >7 IM ([id number])By: On: 01-Jul-2011 Intent Yara Shi MD, MD, Comments: Lot:[id number]:04/24/13Amt:prefilledRoute:IMSite:left deltGiven By: LUPE Aguillon MAMMOGRAM, SCREENING, BOTH On: 01-Jul-2011 Intent BREASTS ([id number])By: Yara Shi MD, MD, Dana M Aerosol Treatment ([id number])By: On: 27-May-2011 Intent Ciesa MACHINE FOLDER, Reyna SPECIMEN HNDLNG/TRNSPRT, OFFC > On: 27-May-2011 Intent LAB ([id number])By: Diana Madrid LPN MAMMOGRAM, SCREENING, BOTH On: 06-Dec-2007 Intent BREASTS ([id number])By: Yara Shi MD, MD, Dana M DXA, BONE DENSITY, AXIAL SKELETON On: 12-Jun-2006 Intent ([id number])By: Yara Shi MD, MD, Dana M MAMMOGRAM, SCREENING, BOTH On: 12-Jun-2006 Intent BREASTS ([id number])By: Yara Shi MD, MD, Dana M Planned Medications INJECTION, TRIAMCINOLONE ACETONIDE, NOT OTHERWISE SPECIFIED, 10 MG Ordered: 09-Jan-2017 Pending Yara Shi MD, MD, Dana M Instructions Name Dates Details BMI 31.0-31.9,adult : [...] Instructions Indication: GERD (gastroesophageal reflux disease) Encounters Review On: 15-Jun-2018 12:31 Encounter Reason: Follow up for chronic medical issues - The patient feels well with minor complaints and has decreased energy level. Patient has been compliant with instructions. Current medication use: no side effects and compliant with dosing regimen. Patient sleeps [...] without sciatica, unspecified back pain laterality, Stress reaction [facility] Lab Order On: 03-Jun-2018 [...] Nutrition: balanced diet and supplemental vitamins. The ms dical issues the patient is following up [...] Previous evaluations: hysterectomy (uterus right ovary removed 8-02 M ay of 2002 left ovary removed ). Note for Well Women Exam: having hotflashes, talk with weromelia, try premarin got breast tenderness wean down we and thursday since 07-14, left ankle twist one year ago a nd still pain, right hip pain in bursitis, discuss woth a transitional care manager state need MRIEncounter Diagnosis: Hypothyroidism (244.9), Well Women Exam (V72.31)( Pap, Mammo, Routine Female and Dexa), Pelvis/Thigh/Hip Pain (719.45), Ankle/Foot Pain (719.47) [facility] Historical Summary On: 28-May-2006 8:54 [facility] End: 28-May-2006 9:06 Payers Jessica CASTANEDA/STEFFANY DE LA GARZA; a guarantor
== END 2018-07-08 19:00 | disposition home or self-care (01) ==
LOC: PT 18:30
PROVIDERS: Family Provider Internal Medicine; PCP Internal Medicine; Referring Provider Internal Medicine; Visit Provider Internal Medicine
DX: M53.3 Sacrococcygeal disorders, not elsewhere classified (principal); S76.312D Strain of muscle, fascia and tendon of the posterior muscle group at thigh level, left thigh, subsequent encounter
CPT/HCPCS: 97035; 97110; 97140; 97162

== ENCOUNTER → 2019-05-12 17:24 | Outpatient (CLI) | payer OTHER, SELFPAY ==
--- NOTE | 2019-05-12 17:28 | CT_ITS ---
STUDY: CT ABDOMEN AND PELVIS WITHOUT CONTRAST REASON FOR EXAM: Female, 63 years old. Right flank pain RADIATION DOSAGE (If Supplied By Facility): CTDIvol = ( 18.18 ) mGy, DLP = ( 1528.72 ) mGycm TECHNIQUE: Transaxial images were obtained from the dome of the diaphragm to the symphysis pubis without oral contrast, and without intravenous contrast. Sagittal and coronal images were reconstructed. Individualized dose optimization techniques were used for this CT. COMPARISON: None. FINDINGS: The visualized lung bases are unremarkable. The visualized portions of the heart are within normal limits. Normal liver. Status post cholecystectomy. No significant dilatation of the extrahepatic biliary system. Normal spleen. Normal pancreas. Normal bilateral adrenal glands. Normal right kidney. Normal left kidney. Small hiatal hernia. Normal small intestine. Normal colon. The appendix is not visualized. Mildly calcified abdominal aorta. Normal inferior vena cava. Normal retroperitoneum. Normal urinary bladder. Nonvisualization of the uterus. Left adnexal cystic nodules up to 2.2 cm. Normal abdominal wall. Mild degenerative vertebral changes. Mildly depressed T1 superior endplate. CT/Abdomen/Pelvis without Cont IMPRESSION: No renal stones or hydronephrosis. Left adnexal cystic nodules. Correlate with pelvic ultrasound if needed. Small hiatal hernia. Electronically Signed: Tony Bray DO at 23:27 EST Tel [phone], Service support ,
--- NOTE | 2019-05-12 17:30 | CT_ITS ---
STUDY: CT THORACIC SPINE WITHOUT CONTRAST REASON FOR EXAM: Female, 63 years old. Right flank pain RADIATION DOSAGE (If Supplied By Facility): CTDIvol = ( 18.18 ) mGy, DLP = ( 1528.72 ) mGycm TECHNIQUE: The patient was scanned in a multi detector CT scanner. High resolution imaging was performed. Images were obtained from T1 to T12. Sagittal and coronal images were reconstructed. Individualized dose optimization techniques were used for this CT. COMPARISON: None. FINDINGS: Normal visualized cervical spine. Normal kyphosis of the thoracic spine. Mild wedge compression of T6. There is depression at the superior endplate of T11. Schmorl''s nodes are noted at the superior endplate of T10 to T12. There is no substantial scoliosis. Mild degenerative changes of the thoracic vertebrae with small spurs noted throughout the mid thoracic endplates. Normal disc spaces heights. The soft tissue structures are unremarkable. CT/Spine Thoracic without Contras IMPRESSION: Mild degenerative changes of the thoracic spine. Slight wedge compression of T6. Mild depression of the superior endplate of T11. Electronically Signed: Tony Bray DO at 23:57 EST Tel [phone], Service support ,
== END ==
PROVIDERS: Family Provider Internal Medicine; PCP Internal Medicine; Referring Provider Internal Medicine; Visit Provider Internal Medicine
DX: M54.6 Pain in thoracic spine (principal); R10.9 Unspecified abdominal pain
CPT/HCPCS: 72128; 74176

== ENCOUNTER → 2020-02-17 10:06 | Outpatient (CLI) | payer OTHER, SELFPAY ==
--- NOTE | 2020-02-17 10:12 | US_ITS ---
STUDY: ULTRASOUND OF THE FEMALE PELVIS - COMPLETE REASON FOR EXAM: Female, 64 years old. ADNEXAL CYST LLQ LMP: The patient is postmenopausal. TECHNIQUE: Transabdominal TECHNICAL QUALITY: Adequate. COMPARISON: None. FINDINGS: The patient is status post hysterectomy. The patient is status post right oophorectomy. The patient is status post left oophorectomy. There is no fluid in the cul-de-sac. The pre void volume of the bladder was 145 ml. US/Pelvic (Non ) IMPRESSION: Status post hysterectomy and bilateral salpingooophorectomy. No masses seen. Electronically Signed: Dk Perla, at 13:10 EDT , Service support ,
== END ==
PROVIDERS: PCP Internal Medicine; Referring Provider Internal Medicine; Visit Provider Internal Medicine
DX: N94.9 Unspecified condition associated with female genital organs and menstrual cycle (principal)
CPT/HCPCS: 76856

== ENCOUNTER 2020-08-23 15:52 | Outpatient (RCR) | payer MEDICARE, OTHER, SELFPAY ==
[2020-08-23] MEDS: COVID-19 VACC, MRNA(PFIZER)/PF 30 MCG/0.3 ML SYRINGE IM (14:01)
[2020-09-13] MEDS: COVID-19 VACC, MRNA(PFIZER)/PF 30 MCG/0.3 ML SYRINGE IM (13:58)
== END 2020-08-23 23:59 ==
LOC: IMMUN 15:52
PROVIDERS: PCP Internal Medicine; Visit Provider Family Medicine
DX: Z23 Encounter for immunization (principal)
CPT/HCPCS: 0001A; 0002A; 91300

== ENCOUNTER → 2021-05-08 12:03 | Outpatient (CLI) | payer MEDICARE, OTHER, SELFPAY ==
--- NOTE | 2021-05-08 12:08 | RAD_ITS ---
STUDY: X-RAY - LEFT HAND REASON FOR EXAM: Female, 65 years old. JOINT PAIN TECHNIQUE: 2 view(s) of the hand. COMPARISON: None. FINDINGS: Normal visualized carpal bones. Normal carpal articulations Normal carpometacarpal articulation of the thumb. Normal second through fifth carpometacarpal joints. Normal metacarpi. Normal metacarpophalangeal joint of the thumb. Normal interphalangeal joint of the thumb. Normal proximal and distal phalanges of the thumb. There is degenerative arthrosis of the metacarpophalangeal (MCP) joints. There is diffuse articular joint space narrowing of the proximal and distal interphalangeal joints of the second through fifth fingers, but without erosive changes or periarticular soft tissue swelling. Normal phalanges of the second through fifth fingers. The soft tissue structures are unremarkable. RAD/Hand 2 Views IMPRESSION: Mild degenerative arthrosis. No erosive arthropathy. Electronically Signed: Phong García MD (Brooks) at 14:22 EST , Service support ,
--- NOTE | 2021-05-08 12:08 | RAD_ITS ---
STUDY: X-RAY - RIGHT HAND REASON FOR EXAM: Female, 65 years old. JOINT PAIN TECHNIQUE: 2 view(s) of the hand. COMPARISON: None. FINDINGS: Normal radiocarpal articulation. Normal distal radioulnar joint. Normal visualized carpal bones. Normal carpal articulations Normal carpometacarpal articulation of the thumb. Normal second through fifth carpometacarpal joints. Normal metacarpi. Normal metacarpophalangeal joint of the thumb. Normal interphalangeal joint of the thumb. Normal proximal and distal phalanges of the thumb. There is degenerative arthrosis of the metacarpophalangeal (MCP) joints. There is diffuse articular joint space narrowing of the proximal and distal interphalangeal joints of the second through fifth fingers, but without erosive changes or periarticular soft tissue swelling. Normal phalanges of the second through fifth fingers. The soft tissue structures are unremarkable. RAD/Hand 2 Views IMPRESSION: Mild degenerative arthrosis. No erosive arthropathy. Electronically Signed: Phong García MD (Brooks) at 14:22 EST , Service support ,
--- NOTE | 2021-05-08 12:09 | RAD_ITS ---
STUDY: X-RAY - BILATERAL KNEES REASON FOR EXAM: Female, 65 years old. JOINT PAIN TECHNIQUE: . 1 view(s) of the bilateral knees were obtained including AP standing weight-bearing views. COMPARISON: None. FINDINGS - RIGHT KNEE: Normal visualized right distal femur. Normal visualized proximal right tibia and fibula. Normal right proximal tibiofibular articulation. There is mild degenerative arthrosis of the medial femorotibial compartment of the right knee. Normal lateral femorotibial compartment of the right knee. The soft tissue structures are unremarkable. FINDING - LEFT KNEE: Normal visualized left distal femur. Normal visualized proximal left tibia and fibula. Normal left proximal tibiofibular articulation. There is mild degenerative arthrosis of the medial femorotibial compartment of the left knee. Normal lateral femorotibial compartment of the left knee. The soft tissue structures are unremarkable. RAD/Knees Standing AP Bilateral IMPRESSION: Mild medial compartment osteoarthrosis, bilateral. Electronically Signed: Phong García MD (Brooks) at 14:27 EST , Service support ,
--- NOTE | 2021-05-08 12:09 | RAD_ITS ---
STUDY: X-RAY - PELVIS AND BILATERAL HIPS REASON FOR EXAM: Female, 65 years old. JOINT PAIN TECHNIQUE: AP view of the pelvis.? 2 views of the right hip, and 2 views of the left hip were obtained. COMPARISON: None. FINDINGS: There is a non-specific bowel gas pattern. Normal visualized soft tissue structures. There are multiple calcified phleboliths. Normal bilateral iliac wings, sacroiliac joints and visualized sacrum. Normal bilateral superior and inferior pubic rami. Normal pubic symphysis. Normal bilateral ischial tuberosities. Normal visualized right femoral head. Normal right acetabulum. Normal right hip joint. There are osteoarthritic changes of the left femoral head with marginal osteophyte formation. There is osteoarthritic spur formation of the left acetabular rim. There is mild articular joint space narrowing of the left hip. RAD/Hips B/L min 2 views w/ Pelvis IMPRESSION: Mild degenerative arthrosis of the left hip. No erosive changes. Electronically Signed: Phong García MD (Brooks) at 14:23 EST , Service support ,
--- NOTE | 2021-05-08 12:09 | RAD_ITS ---
STUDY: X-RAY - LEFT SHOULDER REASON FOR EXAM: Female, 65 years old. JOINT PAIN TECHNIQUE: 4 view(s) of the shoulder. COMPARISON: None. FINDINGS: There is moderate degenerative arthrosis of the glenohumeral articulation. There is degenerative arthrosis of the acromioclavicular joint without inferior osseous spur formation. Normal acromion. Normal humeral head and visualized proximal humerus. There is periarticular soft tissue calcification consistent with a calcific tendinitis versus intra-articular loose bodies. Normal visualized pulmonary apex. RAD/Shoulder min 2 Views IMPRESSION: Glenohumeral and acromioclavicular joint arthrosis. Calcific tendinitis versus intra-articular loose bodies. Electronically Signed: Phong García MD (Brooks) at 14:28 EST , Service support ,
--- NOTE | 2021-05-08 12:09 | RAD_ITS ---
STUDY: X-RAY - RIGHT SHOULDER REASON FOR EXAM: Female, 65 years old. JOINT PAIN TECHNIQUE: 4 view(s) of the shoulder. COMPARISON: None. FINDINGS: There is moderate degenerative arthrosis of the glenohumeral articulation. There is degenerative arthrosis of the acromioclavicular joint without inferior osseous spur formation. Normal acromion. Normal humeral head and visualized proximal humerus. The soft tissue structures are unremarkable. Normal visualized pulmonary apex. RAD/Shoulder min 2 Views IMPRESSION: Glenohumeral and acromioclavicular joint arthrosis. Electronically Signed: Phong García MD (Brooks) at 14:23 EST , Service support ,
== END ==
PROVIDERS: PCP Internal Medicine; Referring Provider Internal Medicine; Visit Provider Internal Medicine
DX: M19.011 Primary osteoarthritis, right shoulder (principal); M19.012 Primary osteoarthritis, left shoulder; M19.041 Primary osteoarthritis, right hand; M19.042 Primary osteoarthritis, left hand; M17.0 Bilateral primary osteoarthritis of knee; M16.12 Unilateral primary osteoarthritis, left hip
CPT/HCPCS: 73030; 73120; 73521; 73565

== ENCOUNTER → 2021-05-28 08:00 | Outpatient (CLI) | payer MEDICARE, OTHER, SELFPAY ==
--- NOTE | 2021-05-28 08:02 | BI_ITS ---
MAMMOGRAPHY - BILATERAL SCREENING REASON FOR EXAM: Female, 65 years old. Routine annual screening examination. PERTINENT HISTORY: Aunt with breast cancer. TECHNIQUE: Digital bilateral breast jacky (3D mammographic acquisition) in the CC and MLO projections. 2-D mediolateral oblique (MLO) and craniocaudad (CC) views of both breasts were obtained. CAD: Full Field Digital Mammography with Computer Added Detection was performed. COMPARISON: Comparison is made with prior study 02/05/2016 and 05/22/2017. FINDINGS: Breast Composition: There are scattered areas of fibroglandular density. There are no dominant masses or suspicious calcifications. Stable small benign-appearing bilateral axillary lymph nodes. No other significant abnormalities are identified. There has been no significant change since the prior study. BI/SCRN MAMM (CAD)W/JACKY BILAT IMPRESSION: Stable bilateral screening mammogram. Yearly follow-up mammogram recommended. (A) ASSESSMENT CATEGORY: BIRADS Category 2: Benign. A letter regarding these results will be sent to the patient by the facility within 30 days. Approximately 10% of breast cancers are not detected by mammography. A normal mammogram should not delay biopsy of a clinically suspicious abnormality. [id number] Electronically Signed: Dk Perla MD at 8:53 EST , Service support ,
--- NOTE | 2021-05-28 08:20 | BD_ITS ---
STUDY: DUAL ENERGY X-RAY ABSORPTIOMETRY / DXA REASON FOR EXAM: Female, 65 years old. Z780. The patient is postmenopausal. TECHNIQUE: Bone Mineral Density (BMD) measurements of lumbar spine and bilateral hips were obtained. COMPARISON: Comparison is made with prior study 02/05/2016. FINDINGS: Lumbar Spine (L1-L4): g/cm2 (1.041) / T-score (-0.1) / Z-score (1.8) Findings are suggestive of normal bone density with a low fracture risk. Left Femur Total: g/cm2 (0.959) / T-score (0.1) / Z-score (1.4) Left Femoral Neck: g/cm2 (0.78) / T-score (-0.6) / Z-score (1.0) Right Femur Total: g/cm2 (0.985) / T-score (0.4) / Z-score (1.6) Right Femoral Neck: g/cm2 (0.770) / T-score (-0.7) / Z-score (0.8) The T-Scores on the most recent prior examination were: Lumbar Spine (L1-L4): There has been worsening of bone density since the previous examination. Left Femur Total: which represents a worsening of 3.4%. Right Femur Total: which represents a worsening of 1.8%. BD/Dexa Bone Density Study IMPRESSION: The patient is considered normal as outlined below according to World [employer] Organization (WHO) criteria with a low fracture risk. There has been worsening of bone density since the previous examination. Reference Information: The T-score is the number of standard deviations above or below the standard which is normal for young adults at their peak bone mineral density. The World Health Organization (WHO) interprets the T-scores as follows: Above -1 Normal bone density Between -1 and -2.5 Osteopenia Equal to / or below -2.5 Osteoporosis As a practical clinical guideline, osteopenia may be graded as follows: Mild -1 through -1.5 Moderate -1.6 through -2.0 Severe -2.1 through -2.4 The Z-score is the number of standard deviations above or below age-matched controls. A Z-score of less than -1.5 would be considered abnormal. References: 1. NIH Osteoporosis and Related Bone Diseases www osteo.org 2. International Society for Clinical Densitometry www iscd.org 3. National Osteoporosis Foundation www nof.org Electronically Signed: Dk Perla MD at 15:34 EST , Service support ,
== END ==
PROVIDERS: PCP Internal Medicine; Referring Provider Internal Medicine; Visit Provider Internal Medicine
DX: Z12.31 Encounter for screening mammogram for malignant neoplasm of breast (principal); Z78.0 Asymptomatic menopausal state
CPT/HCPCS: 77063; 77067; 77080

== ENCOUNTER 2021-06-21 07:58 | Outpatient (CLI) | payer MEDICARE, OTHER, SELFPAY ==
--- NOTE | 2021-06-21 08:04 | RAD_ITS ---
STUDY: X-RAY - ESOPHAGUS (BARIUM SWALLOW) WITH FLUOROSCOPY REASON FOR EXAM: Female, 65 years old. DYSPHAGIA TECHNIQUE: 27 view(s) of the esophagus were obtained following swallowing of barium. FLUOROSCOPY TIME (if supplied): (38 seconds) minutes/seconds COMPARISON: None. FINDINGS: There is no demonstrated esophageal foreign body. Weblike stenosis at the gastroesophageal junction. Gastroesophageal reflux. The patient ingested a 12 mm tablet of barium. The tablet this trapped at the gastroesophageal junction. Normal visualized aortic arch and descending thoracic aorta. Normal visualized pulmonary parenchyma. Normal visualized osseous structures of the thorax. 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 Gastroesophageal reflux. Electronically Signed: Dk Perla MD at 10:00 EST , Service support ,
== END 2021-06-21 23:59 | disposition short-term general hospital (02) ==
LOC: RAD 08:01
PROVIDERS: PCP Internal Medicine; Referring Provider Internal Medicine Gastroenterology; Visit Provider Internal Medicine Gastroenterology
DX: R13.10 Dysphagia, unspecified (principal)
CPT/HCPCS: 74221

== ENCOUNTER 2021-06-26 17:00 | Outpatient (RCR) | payer MEDICARE, OTHER, SELFPAY ==
--- NOTE | 2021-05-20 17:07 | HP.PTEVAL_ITS ---
Patient's Visit Information SEKOU DE LA GARZA is a 65 year old F referred to Physical Therapy by Dr. Yara Castillo MD with a diagnosis of Right Hip Pain. Date of Evaluation: 05/20/21 Physical Therapist: Yun Ann DPT - Visit Plan Frequency: 2x /Week Duration: 3 Weeks Plan: Modalities: Ultrasound, Dry Needling, Manual therapy- stretching and strengthening of piriformis and gluts - Subjective Patient reports that she is having right hip pain- it has been a long while that its been bothering her. She was in [place] in April and she was traveling on bumpy roads and when she got home she was miserable. Tried ice, heat, meds- waited it out for 2 weeks then went to see Dr. Castillo. She put her on a steroid dose pack and she finished that on of last week. She drove to [place] to see her brother due to a hospitalization. She thinks its part bursa and part sciatica. 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 She was doing [place] pose and piriformis stretch in a chair and all of those things make it worse. At work she has a desk that raises and lowers, heating pad for when she sits. Doesn't sit for more than 30 min at a time. No back pain. The pain is located in the glut med in the origin and insertion. If she pushes down into the gluts and takes the step the pain is less. X-rays which were negative for OA. Sometimes feels burning and heat in her right hip and bilateral knees. If she sits for more than 2-3 minutes the pain subsides. Eases: sitting down or resting the joint. Best: 0/10 Eases: sitting, motrin every 6 hours and heating pad. Worst: 8/10 Agg: weight bearing. Every stride is a sharp pain- but when she is sitting its more of a dull achy pain. No groin pain. Had a bakers cyst removed- 2 toes are numb since the surgery. Sleep: disturbed- hard to get comfortable- achy and will wake her up- sleeps almost prone or on he back with her legs elevated- she is up 3x a night. PMHx/Meds: in chart - Objective Posture: FH, RS- can correct with verbal and tactile cues but does not maintain. Gait: decreased stance on the right LE with moderate Trendelenburg. HR/TR: able. SLS: 10 seconds then reports pain and has moderate hip drop. Sensation: WFL to gross touch bilateral LE. Reflex: Patellar 2+. ROM: WFL in all planes in the right hip with discomfort and tightness with IR/ER. Strength: Core: poor plus, Hip: 4/5 throughout Knee: 5/5, Ankle: 5/5. Flex: HS: moderate, Gastroc: moderate Piriformis: severe - Special Tests R Hip Scour: Positive R Hip ROCKY - Intraarticular Pathology: Positive R Hip FADDIR - Labrum: Positive R Hip Impingement Provocation - Labrum: Positive R Hip Trendelenberg - Glut Medius: Positive R Hip Ja - IT Band: Positive Comment: Piriformis Pump: positive - Balance/Special Test Scores Lower Extremity Functional Score: 43 - Goals Goal 1:: Patient will be I with HEP and progression Goal Time Frame: 4-6 Weeks Goal 2:: Patient will asc/desc 8 stairs recip without HR Goal Time Frame: 4-6 Weeks Goal 3:: Patient will report no pain for 1 week Goal Time Frame: 4-6 Weeks - Rehabilitation Potential Physical Therapy Diagnosis: Patient presents with hypomobility- she has decreased pain free ROM, LE and core strength/stabilization, flexibility and muscular endurance leading to poor posture and increased pain with ADL's Rehabilitation Potential: Good - Anticipated Interventions Patient/Client Instruction: Educate patient on: Benefits of Fitness Program Therapeutic Exercise to Include: Strength training, Endurance training, Balance training, Coordination, Agility training, Body mechanics, Postural training, Flexibilty training, Gait and locomotor training, Neuromotor development, Dynamic Lumbar Stabilization, Scapular Strength/Stabilization Manual Therapy Techniques to Include: Trigger point massage, Mobilization, Functional dry needling, Soft tissue mobilization TENS: Yes Cryotherapy (ice pack, ice massage): Yes Thermo therapy (hot pack): Yes Ultrasound (thermal/non thermal): Yes Thank you for the opportunity to evaluate your patient. For Medicare and Medicare HMO plans, please review the plan of care and approve it. It will need to be FAXED BACK to us at [phone] for Medicare purposes. For Medicare only, by signing this I certify the plan of care. Please let me know if there are questions or concerns regarding this plan of care. Physician Signature: Date:
--- NOTE | 2021-06-28 09:39 | HP.PTDCSUM_ITS ---
It has been my pleasure to treat SEKOU DE LA GARZA referred by Dr. Yara Castillo MD, with the diagnosis of Right Hip Pain for a total of 11 visit(s). Discharge Date: Please see the following information for a summary of their discharge status. Subjective: Patient reports that she is almost back to normal and this is her last visit. % Improvement: 80 Objective/Function: Patient was able to complete without incidence. She is planning travel will be d/c at this time and call if questions. Goal 1:: Patient will be I with HEP and progression Goal 2:: Patient will asc/desc 8 stairs recip without HR Goal 3:: Patient will report no pain for 1 week Plan: Discharge to [facility] If there are questions or concerns regarding this patient's physical therapy, please feel free to call me at [phone]. Thank you for the referral of this patient. Sincerely, Yun Ann, DPT Balance/Gait/Functional tests - Balance/Special Test Scores Lower Extremity Functional Score: 56
== END 2021-06-26 19:00 | disposition home or self-care (01) ==
LOC: PT 17:00
PROVIDERS: PCP Internal Medicine; Referring Provider Internal Medicine; Visit Provider Internal Medicine
DX: M25.551 Pain in right hip (principal)
CPT/HCPCS: 97035; 97110; 97140; 97162; 97530

== ENCOUNTER → 2021-10-25 | Outpatient (CLI) | payer MEDICARE, OTHER, SELFPAY ==
--- NOTE | 2021-10-25 14:03 | CDU_ITS ---
Reason For Study: paresthesia of lower lip Rt. Velocities/BP Lt. Velocities/BP Prox CCA 76.0/14.7 cm/sec. Prox CCA 76.0/20.0 cm/sec. Mid CCA 79.9/18.6 cm/sec. Mid CCA 79.9/23.9 cm/sec. Dist CCA 53.9/13.4 cm/sec. Dist CCA 78.6/25.2 cm/sec. Prox ICA 61.7/14.7 cm/sec. Prox ICA 87.8/25.2 cm/sec. Mid ICA 48.6/20.0 cm/sec. Mid ICA 74.7/26.5 cm/sec. Dist ICA 77.3/22.6 cm/sec. Dist ICA 94.3/33.0 cm/sec. Rt. ICA/CCA = 1.0. Lt. ICA/CCA = 1.2. Prox ECA 104.7/14.7 cm/sec. Prox ECA 83.9/12.1 cm/sec. Rt. Vert. 46.0/14.7 cm/sec. Lt. Vert. 43.4/13.4 cm/sec. Right Extracranial There is intimal thickening but no significant atherosclerotic plaque noted in the right common carotid artery. There is intimal thickening but no significant atherosclerotic plaque noted in the right internal carotid artery. There is intimal thickening but no significant atherosclerotic plaque noted in the right external carotid artery. Antegrade flow is noted in the right vertebral artery. There is intimal thickening but no significant atherosclerotic plaque noted in the right bulb. Left Extracranial There is intimal thickening but no significant atherosclerotic plaque noted in the left common carotid artery. There is intimal thickening but no significant atherosclerotic plaque noted in the left internal carotid artery. There is intimal thickening but no significant atherosclerotic plaque noted in the left external carotid artery. Antegrade flow is noted in the left vertebral artery. There is heterogeneous, irregular atherosclerotic plaque noted in the left bulb. Procedure Carotid Duplex [id number]. This is a Carotid Duplex examination using B-mode, color flow and specral Doppler. The exam was diagnostic. Exam performed in department. VL/Carotid Duplex Ultrasound Interpretation Summary No significant atherosclerotic plaque or stenosis noted in the internal carotid arteries bilaterally. Flow within the vertebral arteries is antegrade bilaterally. Heter ogeneous, irregular atherosclerotic plaque is noted in the left carotid bulb, which does not appear to be hemodynamically significant. Ordering Physician: Yara Castillo Performed By: Usman Starr RVT
== END | disposition home or self-care (01) ==
LOC: CVS 14:02
PROVIDERS: PCP Internal Medicine; Referring Provider Internal Medicine; Visit Provider Internal Medicine
DX: R20.2 Paresthesia of skin (principal)
CPT/HCPCS: 93880

== ENCOUNTER → 2022-06-18 | Outpatient (CLI) | payer MEDICARE, OTHER, SELFPAY ==
--- NOTE | 2022-06-18 16:04 | MRI_ITS ---
STUDY: MRI LEFT SHOULDER REASON FOR EXAM: Female, 66 years old. SHOULDER PAIN TECHNIQUE: Standardized fat and water weighted pulse sequences were obtained in all 3 orthogonal planes. COMPARISON: X-ray May 08, 2021 FINDINGS: There is partial humeral surface tear of the distal supraspinatus tendon, series 5 image 03/27. Normal infraspinatus tendon. Normal subscapularis tendon. Normal teres minor tendon. Normal supraspinatus muscle. Normal infraspinatus muscle. Normal subscapularis muscle. Normal teres minor muscle. 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 There is moderate joint effusion. There are multiple loose bodies in the subcoracoid recess. There is spurring of the humeral head and glenoid. Normal biceps labral complex. Normal intracapsular long biceps tendon. Normal labrum. Normal capsulo- ligamentous complex. Normal rotator interval. There is hypertrophic osteoarthritis of the acromioclavicular articulation with impingement upon the musculotendinous junction of the supraspinatus muscle. There is a Type II morphology (curved) acromion, with a neutral orientation. There is no subacromial-subdeltoid bursal fluid. Normal visualized coracohumeral and coracoacromial ligaments. Normal quadrilateral space. Normal axillary space. Normal deltoid muscle. Normal trapezius muscle. MRI/Upper Ext Joint Only(Routine) IMPRESSION: Partial tear of the supraspinatus tendon. No full-thickness rotator cuff tear. Glenohumeral arthrosis. Joint effusion with multiple loose bodies. Acromioclavicular arthrosis with impingement. Electronically Signed: Franklin Valdes MD at 21:37 EST ,
== END | disposition home or self-care (01) ==
LOC: MRI 16:03
PROVIDERS: PCP Internal Medicine; Visit Provider Internal Medicine
DX: M19.012 Primary osteoarthritis, left shoulder (principal); M75.112 Incomplete rotator cuff tear or rupture of left shoulder, not specified as traumatic; M25.511 Pain in right shoulder; M25.40 Effusion, unspecified joint
CPT/HCPCS: 73221

== ENCOUNTER 2022-11-10 16:52 | Emergency (ER) | payer MEDICARE, OTHER, SELFPAY ==
[2022-11-10 16:54] VITALS: BP 168/100; PULSE 112; RESP 18; TEMP 36.1; O2SAT 100; BMI 31.1
--- NOTE | 2022-11-10 17:14 | CT_ITS ---
EXAM: CT ANGIOGRAPHY HEAD AND NECK WITH INTRAVENOUS CONTRAST CLINICAL INDICATION: dizziness, tinnitus, paraesthesias TECHNIQUE: [facility] [place]/head and neck CT angiography protocol performed with intravenous contrast. This CT exam was performed using one or more of the following dose reduction techniques: automated exposure control, adjustment of the mA and/or kV according to patient size, and/or use of iterative reconstruction technique. MIP reconstructed images were created and reviewed. CONTRAST: IV 100mL [id number] COMPARISON: No relevant prior studies available. FINDINGS: HEAD: RIGHT ANTERIOR CEREBRAL ARTERY: Unremarkable. No significant stenosis at the visualized segments. Anterior communicating artery is present. No aneurysm. RIGHT MIDDLE CEREBRAL ARTERY: Unremarkable. No significant stenosis at the visualized segments. No aneurysm. RIGHT POSTERIOR CEREBRAL ARTERY: Unremarkable. No occlusion or significant stenosis. No aneurysm. RIGHT INTRACRANIAL INTERNAL CAROTID ARTERY: Unremarkable. No significant stenosis. No dissection or occlusion. RIGHT INTRACRANIAL VERTEBRAL ARTERY: Unremarkable. No significant stenosis. No dissection or occlusion. LEFT ANTERIOR CEREBRAL ARTERY: Unremarkable. No significant stenosis at the visualized segments. No aneurysm. LEFT MIDDLE CEREBRAL ARTERY: Unremarkable. No significant stenosis at the visualized segments. No aneurysm. LEFT POSTERIOR CEREBRAL ARTERY: Unremarkable. No occlusion or significant stenosis. No aneurysm. LEFT INTRACRANIAL INTERNAL CAROTID ARTERY: Unremarkable. No significant stenosis. No dissection or occlusion. LEFT INTRACRANIAL VERTEBRAL ARTERY: Unremarkable. No significant stenosis. No dissection or occlusion. BASILAR ARTERY: Unremarkable. No significant stenosis. No aneurysm. OTHER VASCULATURE: No vascular malformation. NECK: RIGHT COMMON CAROTID ARTERY: Unremarkable. No significant stenosis. No dissection or occlusion. RIGHT EXTRACRANIAL INTERNAL CAROTID ARTERY: Unremarkable. No significant stenosis. No dissection or occlusion. RIGHT EXTERNAL CAROTID ARTERY: Unremarkable. No occlusion. RIGHT EXTRACRANIAL VERTEBRAL ARTERY: Unremarkable. No significant stenosis. No dissection or occlusion. LEFT COMMON CAROTID ARTERY: Unremarkable. No significant stenosis. No dissection or occlusion. LEFT EXTRACRANIAL INTERNAL CAROTID ARTERY: Unremarkable. No significant stenosis. No dissection or occlusion. LEFT EXTERNAL CAROTID ARTERY: Unremarkable. No occlusion. LEFT EXTRACRANIAL VERTEBRAL ARTERY: Unremarkable. No significant stenosis. No dissection or occlusion. BRACHIOCEPHALIC AND SUBCLAVIAN ARTERIES: Unremarkable as visualized. No occlusion or significant stenosis. LUNG APICES: Unremarkable as visualized. HEAD and NECK: BONES/JOINTS: Unremarkable. No discrete lytic or blastic abnormalities. SOFT TISSUES: Unremarkable. CAROTID STENOSIS REFERENCE USING NASCET CRITERIA: % ICA stenosis = (1 - narrowest ICA diameter/diameter of distal cervical ICA) x 100. Mild - <50% stenosis. Moderate - 50-69% stenosis. Severe - 70-94% stenosis. Near occlusion - 95-99% stenosis. Occluded - 100% stenosis. CT/CTA Head AND Neck W/ Contrast IMPRESSION: Negative CTA carotid and CTA brain. Electronically Signed: Emiliano Mcconnell MD at 18:42 EDT ,
--- NOTE | 2022-11-10 17:15 | EKG12_ITS ---
Test Reason : CP Blood Pressure : / mmHG Vent. Rate : 100 BPM Atrial Rate : 100 BPM P-R Int : 126 ms QRS Dur : 110 ms QT Int : 358 ms P-R-T Axes : 046 000 014 degrees QTc Int : 461 ms Normal sinus rhythm Right bundle branch block Abnormal ECG Confirmed by CASSIA EVANS, JOHAN ([id number]), proposal editor RAVI FRIEND ([id number]) on 11/12/2022 9:34:18 AM Referred By: MICHELLE/KELSY Confirmed By:JOHAN ANTONY MD
--- NOTE | 2022-11-10 17:16 | EX.ED.DYSGE1 ---
HPI History of Present Illness Chief Complaint: Numb/Ting Detail of Chief Complaint: Chest pain, left facial paresthesias, dizziness Informant: patient Narrative Narrative: Patient presents to the emergency department with multiple complaints. She was seen at her PCPs office today and referred to the emergency department. Patient's been complaining of some chest discomfort in the left upper chest that she describes as burning and its been there since yesterday around 1:00 in the afternoon. Patient also with some paresthesias to the left side of her face where she describes, burning sensation between her orbit and her left ear. Patient states she has history of chronic tinnitus and that seems to be worse over the last several days. She just feels dizzy and off but not vertiginous. She has no heart history. No recent travel or surgery. No history of PE or DVT. She denies any weakness in extremities. Patient also had 3 bowel movements today that were loose but not watery which is unusual for her. Patient's had some sweats. Patient states she starting to feel anxious about all the symptoms. [facility] Medical History (Updated 11/10/22 @ 19:[address] Fanny Perez, ) Hiatal hernia with GERD Melanoma Ovarian cyst, left Tinnitus Home Medications meclizine 25 mg chewable tablet (Antivert) 25 mg PO TID PRN dizziness #20 tabs 11/10/22 [Rx Last Taken Unknown] Allergy/AdvReac Type Severity Reaction Status Date / Time nitrofurantoin Allergy Other Verified 11/10/22 16:54 [From Macrodantin] Surgical History (Updated 11/10/22 @ 17:21 by [place]) H/O thyroidectomy H/O: hysterectomy History of partial hysterectomy Hx of cholecystectomy Hx of total knee replacement Social History Smoking Status: Never smoker ROS ROS ED Review of Systems ROS Unobtainable: other Constitutional Constitutional ED: Reports lethargy and sweats; Denies chills, fever(s) or weight loss Eyes Eyes: Denies blurry vision, change in vision or diplopia ENT ENT ED: Denies rhinorrhea or sore throat Cardiovascular Cardiovascular: Reports chest pain and racing heartbeat; Denies orthopnea Respiratory/Chest Respiratory/Chest: Denies cough, dyspnea, dyspnea on exertion, orthopnea or sputum Gastrointestinal Gastrointestinal: Denies abdominal pain, diarrhea, nausea or vomiting Genitourinary Genitourinary ED: Denies dysuria, hematuria or urinary frequency Musculoskeletal Musculoskeletal: Denies arthralgias, back pain, myalgias or neck pain Integumentary Denies abscess, Abrasions or rash Neurologic Neurologic: Reports paresthesias; Denies headache(s) or weakness Psychiatric Psychiatric: Denies anxiety, depression or suicidal thoughts Endocrine Endocrinology: Denies polydipsia, polyphagia or polyuria Hematologic/Lymphatic Hematologic/Lymphatic: Denies easy bleeding, easy bruising or lymphadenopathy Allergic/Immunologic Allergic/Immunologic ED: Denies mouth swelling, tongue swelling or urticaria EXAM Physical Exam Const Vital Signs: 11/10/22 16:54 11/10/22 17:12 11/10/22 17:23 Temperature 97 F L Temperature Source Temporal Pulse Rate 112 H 89 Respiratory Rate 18 15 Respiratory Effort Normal Non-Labored Respiratory Pattern Normal Blood Pressure 168/100 H 157/75 H Blood Pressure Mean 122 102 Pulse Ox 100 Oxygen Delivery Method Room Air Positive well nourished and well developed General Appearance ED: well developed and NAD HEENT Reports TM's clear and moist mucous membranes normocephalic and atraumatic; Negative for trauma or tenderness Tympanic Membrane ED: Yes TM's clear Eyes PERRL and EOMs intact bilaterally General Eye ED: Negative for pale conjunctiva or scleral icterus Neck no lymphadenopathy, supple and no JVD General: Negative for tenderness Chest Wall inspection of chest normal and palpation of chest normal Chest: Negative for tenderness Resp normal respiratory effort and clear to auscultation bilaterally Effort and Inspection: Negative for respiratory distress or pain with movement Auscultation: Negative for rhonchi, wheezes or diminished lung sounds Cardio regular rate, regular rhythm, S1 normal heart sound, S2 normal heart sound and no murmurs Peripheral Pulses: pulses 2+ throughout GI normal to inspection, nondistended, normoactive bowel sounds, soft to palpation, non-tender, non-distended and no masses Back/Spine no CVA tenderness and no thoracic nor lumbar tenderness Extremity normal to inspection General Extremety ED: Negative for edema General Extremity: Negative for edema Neuro oriented x3, CN's II-XII intact bilaterally, no sensory deficits noted and gait normal Sensorium / Orientation: awake, alert, oriented to person, oriented to place and oriented to time Motor Exam: strength 5/5 throughout and strength abnormal Psych mental status grossly normal Skin no rashes or lesions noted and no wounds MDM MDM MDM Narrative Medical decision making narrative: Patient presents to the emergency department complaint of left shoulder pain and upper chest pain as well as burning sensation in the left face. Patient's had some nondescript lightheadedness and does have history of tinnitus that she has had for years. On arrival EKG obtained showed a sinus rhythm with a rate of 100 bpm with a right bundle branch block. CBC with differential showed a white count of 8.8 with hemoglobin 14.7 and platelets 316. D-dimer was normal at 0.36. Chemistries unremarkable. Troponin was normal at 7. Patient had CTA of the head and neck given her description of increased lightheadedness and this burning sensation to her face as well as the history of the tinnitus. CTA of head and neck were normal. Patient's heart score is a 3. Clinically I do not feel patient having acute coronary syndrome or stroke. I feel she be safely discharged home. Patient will be given a prescription for Antivert. She is advised to follow-up with her primary care physician and ENT. Lab Data Attestation: I reviewed the patient's lab results. Labs: Laboratory Results - last 24 hr 11/10/22 11/10/22 11/10/22 17:25 17:25 17:25 WBC 8.8 RBC 5.06 Hgb 14.7 Hct 45.4 MCV 89.7 MCH 29.1 MCHC 32.4 RDW Std Deviation 43.4 RDW Coeff of [place] 13.2 Plt Count 316 MPV 11.5 Immature Gran % (Auto) 0.300 Neut % (Auto) 77.4 H Lymph % (Auto) 15.0 L [place] % (Auto) 5.6 Eos % (Auto) 1.4 Baso % (Auto) 0.3 Absolute Neuts (auto) 6.8 Absolute Lymphs (auto) 1.31 Nucleated RBC % 0 D-Dimer Quant (PE/DVT) 0.36 Sodium 138 Potassium 4.1 Chloride 104 Carbon Dioxide 28.0 Anion Gap 6 BUN 11 Creatinine 0.99 Estim Creat Clear Calc 51.62 Est GFR (MDRD) Af Amer 72 Est GFR (MDRD) Non-Af 59 L BUN/Creatinine Ratio 11.1 Glucose 105 Calcium 9.4 Troponin I High Sens 7 Radiography Diagnostic Testing: Clinical Impression(s) from Imaging Studies Head/Neck CTA 11/10/22 17:14 IMPRESSION: Negative CTA carotid and CTA brain. Electronically Signed: Emiliano Mcconnell MD at 18:42 EDT , Chest X-Ray 11/10/22 18:05 IMPRESSION: No radiographic evidence of acute cardiopulmonary disease. Electronically Signed: Emiliano Mcconnell MD at 18:28 EDT , 1 view chest x-ray obtained interpreted by myself as no evidence of infiltrate or pneumothorax or acute disease process. Radiology in agreement. EKG Initial EKG: Attestation: I personally reviewed and interpreted this EKG as follows: Comments: Sinus rhythm with a rate of 100 bpm with right bundle branch block Discharge Plan Triage Chief Complaint: Numb/Ting ED Provider: Fanny Perez Dx/Rx/DC Orders Clinical Impression: Dizziness, Chest pain Instructions: ED Chest Pain, Uncertain Cause, ED Dizziness, Uncertain Cause Prescriptions: New meclizine [Antivert] 25 mg tablet,chewable 25 mg PO TID PRN (Reason: dizziness) Qty: 20 0RF Primary Care Provider: Yara Castillo Referrals: Yara Castillo MD [Primary Care Provider] - Stanford Glover MD [Med Staff - Active Staff] - 3-5 Days Disposition Disposition: Home, Self Care
[2022-11-10 17:23] VITALS: BP 157/75; PULSE 89; RESP 15
[2022-11-10 17:30] LABS: Absolute Lymphocyte Count 1.31 X10^3/uL (0.83-4.51); Absolute Neutrophil Count 6.8 X10^3/uL (2.0-7.7); Basophil# 0.03 X10^3/uL; Basophil% 0.3 % (0-1); Eosinophil# 0.12 X10^3/uL; Eosinophils% 1.4 % (0-5); Hematocrit 45.4 % (37-47); Hemoglobin 14.7 g/dL (12.0-15.0); Lymphocyte # 1.31 X10^3/ul (0.83-4.51); Mean Corp Hgb Conc 32.4 g/dL (32-36); Mean Corpuscular Hgb 29.1 pg (27.0-32.0); Mean Corpuscular Volume 89.7 fL (81-99); Mean Platelet Vol. 11.5 fl (6.2-12.0); Monocyte# 0.49 X10^3/uL; Monocyte% 5.6 % (0-10); NRBC Flagged by Analyzer 0 % (0-5); Neutrophil # 6.78 X10^3/uL (2.7-7.7); Neutrophil % 77.4 % (47-70); Platelet Count 316 K/mm3 (150-450); RBC Distribution Width CV 13.2 % (11.6-14.6); RBC Distribution Width SD 43.4 fl (35.1-43.9); Red Blood Count 5.06 M/mm3 (4.2-5.4); White Blood Count 8.8 K/mm3 (4.4-11.0)
[2022-11-10 17:45] LABS: D-Dimer Quantitative (DVT/PE) 0.36 FEU/ug/m (0.27-0.49)
[2022-11-10 17:48] LABS: Anion Gap 6 (5-15); BUN 11 mg/dL (7-18); BUN/Creat Ratio 11.1 RATIO (10-20); Calcium,Total 9.4 mg/dL (8.5-10.1); Chloride 104 mmol/L (98-107); Creatinine, Serum 0.99 mg/dL (0.55-1.02); EST Glomerular Filtration Rate 59 mL/min (>60); Est Glom Filt Rate - Afr Amer 72 mL/min (>60); Estimated Creatinine Clearance 51.62 ml/min; Glucose 105 mg/dL (74-106); Potassium 4.1 mmol/L (3.5-5.1); Sodium Level 138 mmol/L (136-145); Troponin-I HS 7 pg/mL (3.0-54.0)
[2022-11-10] MEDS: 0.9% Normal Saline 1,000 ML 150 ML IV (17:55)
--- NOTE | 2022-11-10 18:05 | RAD_ITS ---
EXAM: XR CHEST, 1 VIEW CLINICAL INDICATION: chest pain TECHNIQUE: Frontal view of the chest. COMPARISON: 06/06/2016 FINDINGS: LUNGS AND PLEURAL SPACES: Unremarkable. No consolidation or edema. No pneumothorax. No effusion. HEART: Unremarkable. Cardiac silhouette not enlarged. MEDIASTINUM: Central airways and mediastinal contour are unremarkable. BONES/JOINTS: Unremarkable. SOFT TISSUES: Unremarkable. RAD/Chest 1 View (Portable) IMPRESSION: No radiographic evidence of acute cardiopulmonary disease. Electronically Signed: Emiliano Mcconnell MD at 18:28 EDT ,
[2022-11-10 19:33] VITALS: BP 108/74; PULSE 62; RESP 15; O2SAT 99
== END 2022-11-10 19:39 | disposition home or self-care (01) ==
PROVIDERS: Emergency Provider Emergency Medicine; PCP Internal Medicine; Visit Provider Emergency Medicine
DX: R07.9 Chest pain, unspecified (principal); R42 Dizziness and giddiness; Z90.710 Acquired absence of both cervix and uterus; Z90.49 Acquired absence of other specified parts of digestive tract; Z96.659 Presence of unspecified artificial knee joint
CPT/HCPCS: 70496; 70498; 71045; 80048; 84484; 85025; 85379; 93005; 96360; 96361; 99285; J7030; Q9967; A4216

== ENCOUNTER → 2025-01-10 | Outpatient (CLI) | payer MEDICARE, OTHER, SELFPAY ==
--- NOTE | 2025-01-10 15:10 | BI_ITS ---
EXAM: SCRN MAMM (CAD)W/JACKY BILAT DATE: 01/10/2025 CLINICAL HISTORY: F, Age 69 y/o , SCREENING TECHNIQUE: SCRN MAMM (CAD)W/JACKY BILAT COMPARISON: Prior exam(s) were compared FINDINGS: TISSUE DENSITY: The breasts are heterogeneously dense, which may obscure small masses. Bilateral Breast Mammographic Findings: No suspicious masses, calcifications or other abnormalities are identified. BI/SCRN MAMM (CAD)W/JACKY BILAT IMPRESSION: No mammographic evidence of malignancy in either breast. OVERALL FINAL ASSESSMENT BI-RADS 1: NEGATIVE. RECOMMENDATION: Routine annual follow-up in 1 Year A letter with findings and recommendations will be mailed to the patient. Reading Location: [id number]
--- NOTE | 2025-01-10 15:11 | BD_ITS ---
PROCEDURE: DEXA BONE DENSITY STUDY 01/10/2025 REASON FOR EXAM: F, age 69 y/o . Postmenopausal. TECHNIQUE: DEXA BONE DENSITY STUDY COMPARISON: Prior study dated May 28, 2021. FINDINGS: BMD and T-SCORES Lumbar spine: 1.071 g/cm2, T-score 0.2 Levels: L1 through L4 Change from prior: Improvement of 2.8%. Left femoral neck: 0.711 g/cm2, T-score -1.2 Femoral neck comparison data not recommended for monitoring change. Left total hip: 0.900 g/cm2, T-score -0.3 Change from prior: Loss of 6.1%. Right femoral neck: 0.746 g/cm2, T-score -0.9 Femoral neck comparison data not recommended for monitoring change. Right total hip: 0.950 g/cm2, T-score 0.1 Change from prior: Loss of 3.5%. The World Health Organization has defined the following categories based on bone density: Normal bone density: T-score equal to or greater than -1.0 Osteopenia: T-score between -1.0 and -2.5 Osteoporosis: T-score equal to or less than -2.5 The patient does meet the pharmacological treatment recommendations for prevention of osteoporosis. BD/Dexa Bone Density Study IMPRESSION: OSTEOPENIA. Recommend follow-up as clinically warranted. Reading Location: [id number]
== END | disposition home or self-care (01) ==
LOC: OPBD 15:07
PROVIDERS: PCP Internal Medicine; Referring Provider Internal Medicine; Visit Provider Internal Medicine
DX: Z12.31 Encounter for screening mammogram for malignant neoplasm of breast (principal); Z78.0 Asymptomatic menopausal state
CPT/HCPCS: 77063; 77067; 77080